=== PATIENT | male | born 1945 | race African-American/Black ===

== ENCOUNTER 2017-03-01 19:26 | Emergency (ER) | payer MEDICARE, OTHER ==
[~2017-03-01] VITALS: Ht 172.7 cm; Wt 82.0 kg
[~2017-03-01 19:26] MED LIST: ASPI-130 PO; FLEX10TA PO; GLUCTAB OR; NAPR550 PO; NOVOLOGP2 SQ; SIMV20TA PO; Z.0.UNKNOWN
[2017-03-01 19:27] VITALS: BP 191/92; PULSE 68; RESP 16; TEMP 99; O2SAT 98
--- NOTE | 2017-03-01 19:52 | PD ---
HPI Chief Complaint: Diabetic Time Seen by Provider: 19:40 Travel History International Travel<30 days: No Contact w/Intl Traveler<30days: No Traveled to known affect area: No History of Present Illness HPI 71-year-old male presents for evaluation of hyperglycemia. The patient has a history of type 2 diabetes. He is on metformin 1000 mg BID. Recently he was referred to an crop research scientist Dr. Mason and his insulin regimen was discontinued and he was placed on tanzeum in addition to his metformin. This was approximately 2 months ago. He noticed that his blood sugar tended to run in the mid 100s, higher than when he was on insulin, and in addition the tanzeum was expensive and he felt that he could no longer afford it and so he quit using it one month ago. Since then he has had gradually worsening blood sugar readings. Today's blood sugar was over 400 and this is what prompted evaluation. He does endorse some polyuria, polydipsia. Denies blurred vision, headache, chest pain, shortness of breath, nausea, vomiting, recent illness, fevers, chills. PFSH Past Medical History High Cholesterol: Yes Diabetes: Yes Patient Takes Glucophage: Yes Hypertension: Yes Immunizations Current: Yes Tetanus Vaccination: Never Vaccinated Influenza Vaccination: No Past Surgical History Cholecystectomy: Yes Social History Alcohol Use: No Tobacco Use: No Substance Use: No Allergies-Medications (Allergen,Severity, Reaction): Coded Allergies: acetaminophen (Verified Allergy, Severe, Flushing, 03/01/17) Reported Meds & Prescriptions Reported Meds & Active Scripts Active Review of Systems Except as stated in HPI: all other systems reviewed are Neg Physical Exam Narrative GENERAL: Pleasant well-developed well-nourished male in no acute distress SKIN: Warm and dry. HEAD: Atraumatic. Normocephalic. EYES: Pupils equal and round. No scleral icterus. No injection or drainage. ENT: No nasal bleeding or discharge. Mucous membranes pink and moist. NECK: Trachea midline. No JVD. CARDIOVASCULAR: Regular rate and rhythm. No murmur appreciated. RESPIRATORY: No accessory muscle use. Clear to auscultation. Breath sounds equal bilaterally. GASTROINTESTINAL: Abdomen soft, non-tender, nondistended. Hepatic and splenic margins not palpable. MUSCULOSKELETAL: No obvious deformities. No clubbing. No cyanosis. No edema. NEUROLOGICAL: Awake and alert. No obvious cranial nerve deficits. Motor grossly within normal limits. Normal speech. PSYCHIATRIC: Appropriate mood and affect; insight and judgment normal. Data Data Last Documented VS Vital Signs Date Time Temp Pulse Resp B/P (MAP) Pulse Ox O2 Delivery O2 Flow Rate FiO2 03/01/17 20:28 64 16 170/96 (120) 97 Room Air 03/01/17 19:27 99.0 Orders Orders Complete Blood Count With Diff (03/01/17 19:57) Basic Metabolic Panel (Bmp) (03/01/17 19:57) Sodium Chlor 0.9% 1000 Ml Inj (Ns 1000 M (03/01/17 19:57) Blood Glucose (03/01/17 19:57) Insulin Human Regular Inj (Novolin R Inj (03/01/17 21:30) Clonidine (Catapres) (03/01/17 22:00) Ed Discharge Order (03/01/17 21:58) Labs Laboratory Tests Test 03/01/17 20:30 White Blood Count 6.6 TH/MM3 Red Blood Count 4.70 MIL/MM3 Hemoglobin 13.5 GM/DL Hematocrit 42.3 % Mean Corpuscular Volume 90.1 FL Mean Corpuscular Hemoglobin 28.6 PG Mean Corpuscular Hemoglobin Concent 31.8 % Red Cell Distribution Width 13.5 % Platelet Count 234 TH/MM3 Mean Platelet Volume 9.1 FL Neutrophils (%) (Auto) 52.2 % Lymphocytes (%) (Auto) 35.3 % Monocytes (%) (Auto) 7.7 % Eosinophils (%) (Auto) 4.0 % Basophils (%) (Auto) 0.8 % Neutrophils # (Auto) 3.5 TH/MM3 Lymphocytes # (Auto) 2.3 TH/MM3 Monocytes # (Auto) 0.5 TH/MM3 Eosinophils # (Auto) 0.3 TH/MM3 Basophils # (Auto) 0.1 TH/MM3 CBC Comment DIFF FINAL Differential Comment Blood Urea Nitrogen 16 MG/DL Creatinine 1.08 MG/DL Random Glucose 371 MG/DL Calcium Level 9.4 MG/DL Sodium Level 135 MEQ/L Potassium Level 4.4 MEQ/L Chloride Level 99 MEQ/L Carbon Dioxide Level 29.2 MEQ/L Anion Gap 7 MEQ/L Estimat Glomerular Filtration Rate 82 ML/MIN [facility] Medical Decision Making Medical Screen Exam Complete: Yes Emergency Medical Condition: Yes Medical Record Reviewed: Yes Differential Diagnosis Hyperglycemia, type 2 diabetes, DKA, electrolyte abnormality Narrative Course The patient appears well. He appears to have hyperglycemia in the setting of history of type 2 diabetes, recent medication noncompliance secondary to cost issues. Plan is for basic lab work, urinalysis. Blood glucose will be obtained. He will be given IV fluids. The patient's laboratories reassuring. He was given an 8 unit insulin bolus. His blood sugar probably improved to 232. His blood pressure has been elevated during his hospital stay, most recent blood pressure reading was 205 systolic. He is prescribed a antihypertensive medication which he uses twice a day, and fortunately does not recall the name, and he is due for his evening dose. The patient will be given a dose of clonidine prior to discharge. He is encouraged to keep a daily journal of his blood pressure readings and to discuss with his primary care if the blood pressure readings are consistently elevated. Diagnosis Primary Impression: Hyperglycemia Additional Instructions: Follow-up with Dr. Mason tomorrow as scheduled to discuss your glycemic goals. As discussed, monitor blood pressure and a regular basis and keep a journal of these readings. Follow-up with primary care. Return for any emergent medical conditions. Med/Other Pt SpecificInfo: No Change to Meds Disposition: 01 DISCHARGE HOME Condition: Stable Tony Milian Mar 01, 2017 19:52
[2017-03-01] MEDS ORDERED: SODIUM CHLOR 0.9% 1000 ML INJ 1,000 ML IV SCH ×2 (19:57)
[2017-03-01 20:28] VITALS: BP 170/96; PULSE 64; RESP 16; O2SAT 97
[2017-03-01] MEDS ORDERED: SIMV20TA PO ×2 (20:34)
[2017-03-01] MEDS ORDERED: ASPI81CH7 PO ×2 (20:34)
[2017-03-01] MEDS ORDERED: LISI10TA3 PO ×2 (20:34)
[2017-03-01] MEDS ORDERED: METF1000 PO ×2 (20:34)
[2017-03-01 20:56] LABS: AUTOMATED NEUTROPHIL # 3.5 TH/MM3 (1.8-7.7); BASOPHIL # 0.1 TH/MM3 (0-0.2); BASOPHIL % 0.8 % (0.0-2.0); EOSINOPHIL # 0.3 TH/MM3 (0-0.4); HEMATOCRIT 42.3 % (39.0-51.0); HEMOGLOBIN 13.5 GM/DL (13.0-17.0); LYMPH % 35.3 % (9.0-44.0); LYMPHOCYTE # 2.3 TH/MM3 (1.0-4.8); MEAN CELL VOLUME 90.1 FL (80.0-100.0); MEAN CORPUSCULAR HEMOGLOBIN 28.6 PG (27.0-34.0); MEAN CORPUSCULAR HGB CONC 31.8 % (32.0-36.0); MEAN PLATELET VOLUME 9.1 FL (7.0-11.0); MONO % 7.7 % (0.0-8.0); MONOCYTE # 0.5 TH/MM3 (0-0.9); NEUT % 52.2 % (16.0-70.0); PLATELET COUNT 234 TH/MM3 (150-450); RED CELL DISTRIBUTION WIDTH 13.5 % (11.6-17.2); WHITE BLOOD COUNT 6.6 TH/MM3 (4.0-11.0)
[2017-03-01 21:12] LABS: BICARBONATE 29.2 MEQ/L (21.0-32.0); CALCIUM 9.4 MG/DL (8.5-10.1); CREATININE 1.08 MG/DL (0.60-1.30)
[2017-03-01] MEDS ORDERED: INSULIN HUMAN REGULAR 1,000 UNITS/10 ML VIAL IV PUSH ONE ×2 (21:30)
[2017-03-01 22:00] VITALS: BP 203/105; PULSE 65; RESP 16; O2SAT 98
[2017-03-01] MEDS ORDERED: cloNIDine HCL 0.2 MG TAB PO ONE ×2 (22:00)
[2017-03-01 22:39] VITALS: BP 180/100
== END 2017-03-01 22:41 | disposition home or self-care (01) ==
LOC: NEPC 19:26
DX: E11.65 Type 2 diabetes mellitus with hyperglycemia (principal); T38.3X6A Underdosing of insulin and oral hypoglycemic [antidiabetic] drugs, initial encounter; Z91.120 Patient's intentional underdosing of medication regimen due to financial hardship
CPT/HCPCS: 80048; 85025; 96361; 96374; 99284; J1815; J7030

== ENCOUNTER 2017-04-12 16:18 | Inpatient (IN) | payer MEDICARE ==
[~2017-04-12] VITALS: Ht 172.7 cm; Wt 81.0 kg
[2017-04-12] VITALS (7 sets, daily range): BP systolic 123–200; BP diastolic 62–98; PULSE 57–78; RESP 16–25; TEMP 98.3–99; O2SAT 95–99
[~2017-04-12 16:18] MED LIST changes: -ASPI-130 PO; +ASPI81CH7 PO; -FLEX10TA PO; -GLUCTAB OR; +LISI10TA3 PO; +METF1000 PO; -NAPR550 PO; -NOVOLOGP2 SQ; -Z.0.UNKNOWN
[2017-04-12] MEDS ORDERED: SODIUM CHLORIDE 0.9% FLUSH 10 ML FLUSH IVF PRN (16:45)
--- NOTE | 2017-04-12 16:49 | PD ---
HPI Chief Complaint: Chest Pain Time Seen by Provider: 16:42 Travel History International Travel<30 days: No Contact w/Intl Traveler<30days: No Traveled to known affect area: No History of Present Illness HPI 72-year-old male patient with history of high cholesterol, diabetes, presents to the ER today for 2 weeks' history of left-sided chest discomfort which she currently rates at 6 out of 10 with radiation down his left arm. He states that he had noticed that it does worsen sometimes with walking and laying on his side. He denies any nausea, shortness of breath, or any other symptoms. His primary care physician sent him in for further evaluation. Modifying Factors: None Associated Signs & Symptoms: Left-sided chest pain Risk Factors: Diabetes, high cholesterol PFSH Past Medical History High Cholesterol: Yes Diabetes: Yes Hypertension: Yes Immunizations Current: Yes ?: Not Past Surgical History Cholecystectomy: Yes Social History Alcohol Use: No Tobacco Use: No Substance Use: No Allergies-Medications (Allergen,Severity, Reaction): Coded Allergies: acetaminophen (Verified Allergy, Severe, Flushing, 03/01/17) Reported Meds & Prescriptions Reported Meds & Active Scripts Active Reported Lisinopril 10 Mg Tab 10 Mg PO DAILY Aspirin Children's (Aspirin) 81 Mg Chew 81 Mg PO DAILY Simvastatin 20 Mg Tab 20 Mg PO HS Metformin (Metformin HCl) 1,000 Mg Tab 1,000 Mg PO BIDPC Review of Systems Except as stated in HPI: all other systems reviewed are Neg Physical Exam Narrative GENERAL: Well-developed elderly -Cypriot male patient currently in mild distress. Awake and oriented 3. SKIN: Focused skin assessment warm/dry. HEAD: Atraumatic. Normocephalic. EYES: Pupils equal and round. No scleral icterus. No injection or drainage. ENT: No nasal bleeding or discharge. Mucous membranes pink and moist. NECK: Trachea midline. No JVD. CARDIOVASCULAR: Regular rate and rhythm. No murmur appreciated. Pulses are present and equal bilaterally. RESPIRATORY: No accessory muscle use. Clear to auscultation. Breath sounds equal bilaterally. GASTROINTESTINAL: Abdomen soft, non-tender, nondistended. Hepatic and splenic margins not palpable. MUSCULOSKELETAL: No obvious deformities. No clubbing. No cyanosis. No edema. NEUROLOGICAL: Awake and alert. No obvious cranial nerve deficits. Motor grossly within normal limits. Normal speech. PSYCHIATRIC: Appropriate mood and affect; insight and judgment normal. Data Data Last Documented VS Vital Signs Date Time Temp Pulse Resp B/P (MAP) Pulse Ox O2 Delivery O2 Flow Rate FiO2 04/12/17 18:08 61 201/111 04/12/17 17:11 98.7 25 99 Room Air Orders Orders Electrocardiogram (04/12/17 16:42) Ckmb (Isoenzyme) Profile (04/12/17 16:42) Complete Blood Count With Diff (04/12/17 16:42) Comprehensive Metabolic Panel (04/12/17 16:42) Magnesium (Mg) (04/12/17 16:42) Prothrombin Time / Inr (Pt) (04/12/17 16:42) Act Partial Throm Time (Ptt) (04/12/17 16:42) Troponin I (04/12/17 16:42) Chest, Single Ap (04/12/17 16:42) Ecg Monitoring (04/12/17 16:42) Bilateral Bp Monitoring (04/12/17 16:42) Iv Access Insert/Monitor (04/12/17 16:42) Oximetry (04/12/17 16:42) Oxygen Administration (04/12/17 16:42) Sodium Chloride 0.9% Flush (Ns Flush) (04/12/17 16:45) Aspirin (Aspirin) (04/12/17 17:30) Nitroglycerin 2% Oint (Nitroglycerin 2% (04/12/17 17:30) CKMB (04/12/17 17:10) CKMB% (04/12/17 17:10) Nitroglycerin-D5w 50 Mg/250 Ml (Nitrogly (04/12/17 18:00) Labetalol Inj (Trandate Inj) (04/12/17 18:45) Admit Order (Ed Use Only) (04/12/17 18:44) Labs Laboratory Tests Test 04/12/17 17:10 White Blood Count 6.6 TH/MM3 Red Blood Count 4.47 MIL/MM3 Hemoglobin 13.3 GM/DL Hematocrit 40.6 % Mean Corpuscular Volume 90.9 FL Mean Corpuscular Hemoglobin 29.7 PG Mean Corpuscular Hemoglobin Concent 32.7 % Red Cell Distribution Width 13.5 % Platelet Count 218 TH/MM3 Mean Platelet Volume 9.7 FL Neutrophils (%) (Auto) 53.5 % Lymphocytes (%) (Auto) 34.8 % Monocytes (%) (Auto) 6.7 % Eosinophils (%) (Auto) 4.0 % Basophils (%) (Auto) 1.0 % Neutrophils # (Auto) 3.6 TH/MM3 Lymphocytes # (Auto) 2.3 TH/MM3 Monocytes # (Auto) 0.4 TH/MM3 Eosinophils # (Auto) 0.3 TH/MM3 Basophils # (Auto) 0.1 TH/MM3 CBC Comment DIFF FINAL Differential Comment Prothrombin Time 11.0 SEC Prothromb Time International Ratio 1.1 RATIO Activated Partial Thromboplast Time 24.9 SEC Blood Urea Nitrogen 12 MG/DL Creatinine 1.00 MG/DL Random Glucose 143 MG/DL Total Protein 6.9 GM/DL Albumin 3.4 GM/DL Calcium Level 8.8 MG/DL Magnesium Level 1.6 MG/DL Alkaline Phosphatase 86 U/L Aspartate Amino Transf (AST/SGOT) 40 U/L Alanine Aminotransferase (ALT/SGPT) 57 U/L Total Bilirubin 1.6 MG/DL Sodium Level 139 MEQ/L Potassium Level 4.4 MEQ/L Chloride Level 103 MEQ/L Carbon Dioxide Level 32.3 MEQ/L Anion Gap 4 MEQ/L Estimat Glomerular Filtration Rate 89 ML/MIN Total Creatine Kinase 255 U/L Creatine Kinase MB 2.7 NG/ML Troponin I 0.06 NG/ML [facility] Medical Decision Making Medical Screen Exam Complete: Yes Emergency Medical Condition: Yes Medical Record Reviewed: Yes Interpretation(s) EKG shows NSR, no ST elevation or depression, and no arrhythmias. No significant T-wave inversions. Laboratory Tests Test 04/12/17 17:10 Red Blood Count 4.47 MIL/MM3 (4.50-5.90) Random Glucose 143 MG/DL (74-106) Aspartate Amino Transf (AST/SGOT) 40 U/L (15-37) Total Bilirubin 1.6 MG/DL (0.2-1.0) Carbon Dioxide Level 32.3 MEQ/L (21.0-32.0) Anion Gap 4 MEQ/L (5-15) Troponin I 0.06 NG/ML (0.02-0.05) Last 24 hours Impressions Chest X-Ray 04/12/17 1642 Signed Impressions: Service Date/Time: April 16:53 - CONCLUSION: No acute cardiopulmonary abnormality is identified. Jim Miramontes MD Differential Diagnosis Left-sided chest pains: ACS versus costochondritis versus radiculopathy Narrative Course Patient's blood pressure was fairly elevated initially and aspirin nitroglycerin paste was given. It did not come down with that and nitro drip was also initiated especially considering the chest pain. He has no signs of acute ST-T changes. However, his troponin is mildly elevated 0.06. At this point, my plan would be to admit the patient for further evaluation. Chest x- ray did not show any signs of acute pulmonary processes. He otherwise appears comfortable in the ER. Pulses are present and equal bilaterally. At this point , case was discussed with Dr. Earl of intensive care unit and he states that he does not feel that the patient needs to come to the ICU, can be admitted to medical floors, [facility]IC for further treatment. He would add labetalol to the regimen in order to improve the blood pressure as well. Case was then discussed with Dr. Webster for admission. Diagnosis Primary Impression: Chest pain Additional Impression: Hypertensive urgency Admitting Information Admitting Physician Requests: Admit Tracee Cole MD Apr 12, 2017 16:49
--- NOTE | 2017-04-12 17:07 | RADRPT ---
EXAM DATE/TIME: 04/12/2017 16:53 [place] COMPARISON: No previous studies available for comparison. INDICATIONS : Chest pain and tenderness all around chest, denies injury MEDICAL HISTORY : Hypertension. SURGICAL HISTORY : None. ENCOUNTER: Initial ACUITY: 4 - 6 days PAIN SCORE: 2/10 LOCATION: Bilateral chest FINDINGS: Portable AP view of the chest demonstrates a normal-sized cardiac silhouette. No effusion, consolidat ion, or pneumothorax is visualized. The bones and soft tissues demonstrate no acute abnormality. CONCLUSION: No acute cardiopulmonary abnormality is identified. Jim Miramontes MD on April 12, 2017 at 17:05 Board Certified Radiologist. This report was verified electronically.
[2017-04-12] MEDS ORDERED: ASPIRIN 325 MG TAB PO ONE (17:30)
[2017-04-12] MEDS ORDERED: NITROGLYCERIN 2% OINT 1 GM PACKET TOPICAL ONE (17:30)
[2017-04-12 17:42] LABS: AUTOMATED NEUTROPHIL # 3.6 TH/MM3 (1.8-7.7); BASOPHIL # 0.1 TH/MM3 (0-0.2); EOSINOPHIL # 0.3 TH/MM3 (0-0.4); HEMATOCRIT 40.6 % (39.0-51.0); HEMO FLAGS DIFF FINAL; LYMPH % 34.8 % (9.0-44.0); LYMPHOCYTE # 2.3 TH/MM3 (1.0-4.8); MEAN CELL VOLUME 90.9 FL (80.0-100.0); MEAN CORPUSCULAR HEMOGLOBIN 29.7 PG (27.0-34.0); MEAN CORPUSCULAR HGB CONC 32.7 % (32.0-36.0); MONO % 6.7 % (0.0-8.0); NEUT % 53.5 % (16.0-70.0); PLATELET COUNT 218 TH/MM3 (150-450); RED BLOOD COUNT 4.47 MIL/MM3 (4.50-5.90); RED CELL DISTRIBUTION WIDTH 13.5 % (11.6-17.2); WHITE BLOOD COUNT 6.6 TH/MM3 (4.0-11.0)
[2017-04-12 17:53] LABS: ALT (GPT) 57 U/L (12-78); ANION GAP 4 MEQ/L (5-15); AST (GOT) 40 U/L (15-37); BICARBONATE 32.3 MEQ/L (21.0-32.0); BLOOD UREA NITROGEN 12 MG/DL (7-18); CHLORIDE 103 MEQ/L (98-107); GLOMERULAR FILTRATION RATE 89 ML/MIN (>89); MAGNESIUM 1.6 MG/DL (1.5-2.5); POTASSIUM 4.4 MEQ/L (3.5-5.1); SODIUM (NA) 139 MEQ/L (136-145)
[2017-04-12 17:57] LABS: ALKALINE PHOSPHATASE 86 U/L (45-117); CREATINE KINASE 255 U/L (39-308); TOTAL BILIRUBIN ADULT 1.6 MG/DL (0.2-1.0)
[2017-04-12] MEDS ORDERED: NITROGLYCERIN-D5W 50 MG/250 ML 250 ML IV PRN (18:00)
[2017-04-12 18:05] LABS: APTT (PATIENT) 24.9 SEC (24.3-30.1); INTERNATIONAL NORMALIZED RATIO 1.1 RATIO
[2017-04-12 18:09] LABS: CKMB 2.7 NG/ML (0.5-3.6)
[2017-04-12] MEDS ORDERED: LABETALOL HCL 100 MG/20 ML VIAL IV PUSH ONE (18:45)
[2017-04-12] MEDS ORDERED: NALOXONE HCL 0.4 MG/ML AMP IV PUSH PRN (20:30)
[2017-04-12] MEDS ORDERED: MAGNESIUM HYDROXIDE SUSP 30 ML CUP PO PRN (20:30)
[2017-04-12] MEDS ORDERED: SODIUM CHLORIDE 0.9% FLUSH 10 ML FLUSH IV FLUSH PRN (20:30)
[2017-04-12] MEDS ORDERED: LACTULOSE SYRUP 20 GM/30 ML CUP PO PRN (20:30)
[2017-04-12] MEDS ORDERED: BISACODYL 10 MG SUPP RECTAL PRN (20:30)
[2017-04-12] MEDS ORDERED: LABETALOL HCL 100 MG/20 ML VIAL IV PUSH PRN (20:30)
[2017-04-12] MEDS ORDERED: SENNOSIDES 8.6 MG TAB PO PRN (20:30)
[2017-04-12] MEDS ORDERED: DEXTROSE 50% IN WATER 50 ML VIAL(D50) IV PUSH PRN (20:45)
[2017-04-12] MEDS ORDERED: GLUCAGON 1 MG/ML VIAL OTHER PRN (20:45)
--- NOTE | 2017-04-12 20:51 | HHI.HP ---
HPI Service [facility] Primary Care Physician Weston León MD, PhD Admission Diagnosis hypertensive urgency/chest pain/mildly elevated troponin Chief Complaint: chest pain last 2 weeks Travel History International Travel<30 Days: No Contact w/Intl Traveler <30 Da: No Traveled to Known Affected Are: No History of Present Illness 72-year-old male patient with history of high cholesterol, diabetes, presents to the ER today for 2 weeks' history of left-sided chest discomfort which she currently rates at 6 out of 10 with radiation down his left arm. He states that he had noticed that it does worsen sometimes with walking and laying on his side. He denies any nausea, shortness of breath, or any other symptoms. In er started on ntg with improvement in pain but had positive troponin and had significant increase in blood pressure. Patient started on NTG drip and given labetatol with improvement admit to rule out cardiac chest pain and consult cardiology follow labs. Review of Systems Cardiovascular: COMPLAINS OF: Chest pain Past Family Social History Past Medical History hypertension,hyperlipidemia,diabetes Past Surgical History gall bladder Reported Medications [id number] asa 81 simvastain 20 metformin 1000 bid Allergies: Coded Allergies: acetaminophen (Verified Allergy, Severe, Flushing, 03/01/17) Social History NS,ND Physical Exam Vital Signs Vital Signs Date Time Temp Pulse Resp B/P (MAP) Pulse Ox O2 Delivery O2 Flow Rate FiO2 04/12/17 20:28 78 16 142/77 (98) 98 Room Air 04/12/17 20:01 72 183/106 04/12/17 19:45 64 171/92 04/12/17 18:50 63 18 139/81 (100) 04/12/17 18:45 61 199/110 04/12/17 18:08 61 201/111 04/12/17 17:11 98.7 58 25 197/96 (129) 99 Room Air 200/98 (132) 04/12/17 17:10 99 Room Air 04/12/17 17:10 (121) Room Air 04/12/17 16:57 58 18 98 Room Air 04/12/17 16:23 99.0 57 16 182/91 (121) 99 Room Air Physical Exam GENERAL: This is a well-nourished, well-developed patient, in no apparent distress. SKIN: No rashes, ecchymoses or lesions. Cool and dry. HEAD: Atraumatic. Normocephalic. No temporal or scalp tenderness. EYES: Pupils equal round and reactive. Extraocular motions intact. No scleral icterus. No injection or drainage. ENT: Nose without bleeding, purulent drainage or septal hematoma. Throat without erythema, tonsillar hypertrophy or exudate. Uvula midline. Airway patent. NECK: Trachea midline. No JVD or lymphadenopathy. Supple, nontender, no meningeal signs. CARDIOVASCULAR: Regular rate and rhythm without murmurs, gallops, or rubs. RESPIRATORY: Clear to auscultation. Breath sounds equal bilaterally. No wheezes , rales, or rhonchi. GASTROINTESTINAL: Abdomen soft, non-tender, nondistended. No hepato-splenomegaly , or palpable masses. No guarding. MUSCULOSKELETAL: Extremities without clubbing, cyanosis, or edema. No joint tenderness, effusion, or edema noted. No calf tenderness. Negative Homans sign bilaterally. NEUROLOGICAL: Awake and alert. Cranial nerves II through XII intact. Motor and sensory grossly within normal limits. Five out of 5 muscle strength in all muscle groups. Normal speech. Laboratory Laboratory Tests Test 04/12/17 17:10 White Blood Count 6.6 Red Blood Count 4.47 Hemoglobin 13.3 Hematocrit 40.6 Mean Corpuscular Volume 90.9 Mean Corpuscular Hemoglobin 29.7 Mean Corpuscular Hemoglobin Concent 32.7 Red Cell Distribution Width 13.5 Platelet Count 218 Mean Platelet Volume 9.7 Neutrophils (%) (Auto) 53.5 Lymphocytes (%) (Auto) 34.8 Monocytes (%) (Auto) 6.7 Eosinophils (%) (Auto) 4.0 Basophils (%) (Auto) 1.0 Neutrophils # (Auto) 3.6 Lymphocytes # (Auto) 2.3 Monocytes # (Auto) 0.4 Eosinophils # (Auto) 0.3 Basophils # (Auto) 0.1 CBC Comment DIFF FINAL Differential Comment Prothrombin Time 11.0 Prothromb Time International Ratio 1.1 Activated Partial Thromboplast Time 24.9 Blood Urea Nitrogen 12 Creatinine 1.00 Random Glucose 143 Total Protein 6.9 Albumin 3.4 Calcium Level 8.8 Magnesium Level 1.6 Alkaline Phosphatase 86 Aspartate Amino Transf (AST/SGOT) 40 Alanine Aminotransferase (ALT/SGPT) 57 Total Bilirubin 1.6 Sodium Level 139 Potassium Level 4.4 Chloride Level 103 Carbon Dioxide Level 32.3 Anion Gap 4 Estimat Glomerular Filtration Rate 89 Total Creatine Kinase 255 Creatine Kinase MB 2.7 Troponin I 0.06 Result Diagram: 04/12/17 1710 04/12/17 1710 Imaging Last 24 hours Impressions Chest X-Ray 04/12/17 1642 Signed Impressions: Service Date/Time: April 16:53 - CONCLUSION: No acute cardiopulmonary abnormality is identified. Jim Miramontes MD Course ekg-nsr non specific st t wave changes received labetolol ntg Caprini VTE Risk Assessment Caprini VTE Risk Assessment: Mod/High Risk (score >= 2) Caprini Risk Assessment Model Point Value = 1 Point Value = 2 Point Value = 3 Point Value = 5 Age 41-60 Minor surgery BMI > 25 kg/m2 Swollen legs Varicose veins or History of unexplained or recurrent spontaneous Oral contraceptives or hormone replacement Sepsis (< 1 month) Serious lung disease, including pneumonia (< 1 month) Abnormal pulmonary function Acute myocardial infarction Congestive heart failure (< 1 month) History of inflammatory bowel disease Medical patient at bed rest Age 61-74 Arthroscopic surgery Major open surgery (> 45 min) Laparoscopic surgery (> 45 min) Malignancy Confined to bed (> 72 hours) Immobilizing plaster cast Central venous access Age >= 75 History of VTE Family history of VTE Factor V Leiden Prothrombin [id number] Lupus anticoagulant Anticardiolipin antibodies Elevated serum homocysteine Heparin-induced thrombocytopenia Other congenital or acquired thrombophilia Stroke (< 1 month) Elective arthroplasty Hip, pelvis, or leg fracture Acute spinal cord injury (< 1 month) Prophylaxis Regimen Total Risk Factor Score Risk Level Prophylaxis Regimen 0-1 Low Early ambulation 2 Moderate Order ONE of the following: *Sequential Compression Device (SCD) *Heparin 5000 units SQ BID 3-4 Higher Order ONE of the following medications: *Heparin 5000 units SQ TID *Enoxaparin/Lovenox 40 mg SQ daily (WT < 150 kg, CrCl > 30 mL/min) *Enoxaparin/Lovenox 30 mg SQ daily (WT < 150 kg, CrCl > 10-29 mL/min) *Enoxaparin/Lovenox 30 mg SQ BID (WT < 150 kg, CrCl > 30 mL/min) AND/OR *Sequential Compression Device (SCD) 5 or more Highest Order ONE of the following medications: *Heparin 5000 units SQ TID (Preferred with Epidurals) *Enoxaparin/Lovenox 40 mg SQ daily (WT < 150 kg, CrCl > 30 mL/min) *Enoxaparin/Lovenox 30 mg SQ daily (WT < 150 kg, CrCl > 10-29 mL/min) *Enoxaparin/Lovenox 30 mg SQ BID (WT < 150 kg, CrCl > 30 mL/min) AND *Sequential Compression Device (SCD) Assessment and Plan Problem List: (1) Hypertensive urgency ICD Codes: I16.0 - Hypertensive urgency Status: Acute Plan: patient was started on NTG drip and given labetolol with improvement will continue for now (2) Chest pain ICD Codes: R07.9 - Chest pain, unspecified Status: Acute Plan: chest pain about 2 weeks duration pain free now with ntg drip continue asa and add lovenox for now follow enzymes cardiac consult (3) Diabetes ICD Codes: E11.9 - Type 2 diabetes mellitus without complications Plan: continue metformin sliding scale Assessment and Plan further plan as case develops Code Status full Discussed Condition With patient Physician Certification 2 Midnight Certification Type: Admission for Inpatient Services Order for Inpatient Services The services are ordered in accordance with Medicare regulations or non- Medicare payer requirements, as applicable. In the case of services not specified as inpatient-only, they are appropriately provided as inpatient services in accordance with the 2-midnight benchmark. Estimated LOS (days): 3 3 days is the estimated time the patient will need to remain in the hospital, assuming treatment plan goals are met and no additional complications. Post-Hospital Plan: Home Austin Norton MD Apr 12, 2017 20:51
[2017-04-12] MEDS: ENOXAPARIN SODIUM 40 MG/0.4 ML SYRINGE SQ SCH (20:58)
[2017-04-12] MEDS: DOCUSATE SODIUM 50 MG/SENNA 8.6 MG TAB PO SCH (21:00)
[2017-04-12] MEDS: SODIUM CHLORIDE 0.9% FLUSH 10 ML FLUSH IV FLUSH SCH (21:00)
[2017-04-12] MEDS: INSULIN ASPART SUPPLEMENTAL SCALE SQ SCH (21:00)
--- NOTE | 2017-04-12 21:21 | EKG ---
Date Performed: 04/12/2017 Time Performed: 17:03:54 PTAGE: 72 years EKG: Baseline artifact present SINUS BRADYCARDIA WITH SINUS ARRHYTHMIA NONSPECIFIC T-WAVE ABNORM ALITY BORDERLINE ECG No significant change from prior electrocardiogram. PREVIOUS TRACING : 11/27/2008 23.37 DOCTOR: Young Thompson Interpretating Date/Time 04/12/2017 21:20:42
[2017-04-12] MEDS: PRAVASTATIN SOD 40 MG TAB PO SCH (21:49)
[2017-04-13] VITALS (24 sets, daily range): BP systolic 143–174; BP diastolic 70–97; PULSE 58–80; RESP 18–20; TEMP 98–98.7; O2SAT 96–98
[2017-04-13] MEDS: INSULIN ASPART SUPPLEMENTAL SCALE SQ SCH ×4 (08:00→20:56)
--- NOTE | 2017-04-13 08:20 | MB ---
cc: LORI HARRISON DATE OF CONSULTATION 04/13/2017 HISTORY This is a 72-year-old gentleman who was admitted to the hospital for chest discomfort. His chest discomfort actually began about two to three weeks ago. This has been more or less persistent throughout that time. He also has significant radiation into his left arm and they eventually decided to come to the hospital for evaluation. No exertional component is present to the test. He does note that his left arm pain is worsened by lying on his left side and/or if he moves his arm. No associated dyspnea, diaphoresis or nausea was present. No prior history of chest pain or heart disease has been present. His risk factors for coronary disease include a history of hypertension, diabetes and hyperlipidemia. He noted that his blood pressure was quite high when he came to the emergency department with a systolic of 200 mmHg. He has been given IV nitroglycerin for blood pressure control and systolic blood pressure is now 150. He is a never smoker. No significant family history of coronary disease as present. ALLERGIES None except that he has an ADVERSE REACTION TO TYLENOL. MEDICATIONS Medications at home have included: 1. Lisinopril 10 mg daily 2. 81 mg of Aspirin daily 3. Simvastatin 20 mg daily 4. Metformin 1000 mg twice daily PHYSICAL EXAM On physical exam, he is in awake and alert. He is in no acute distress. VITAL SIGNS: His blood pressure is 147/75, pulse is 60 and regular. NECK: There is no neck vein distension. Carotids are normal. LUNGS: Clear. CARDIOVASCULAR: Exam reveals a regular rate and rhythm. No significant murmur or gallop was noted. There is no particular point tenderness. SKIN: No skin lesions were seen. ABDOMEN: Unremarkable. Electrocardiogram done with chest pain reveals no acute ST or T-wave changes. LABORATORY DATA Laboratory examination is significant for a slightly elevated troponin at 0.06. His renal function is within normal limits. The remainder of his lab examination is unremarkable. ASSESSMENT/PLAN The patient has chest discomfort which is unlikely to be coronary disease based on its presentation of two weeks without significant change. We will do a Lexiscan in view of his multiple risk factors to rule out occult coronary artery disease. I have taken the liberty of adding amlodipine to his regimen for better blood pressure control. MD PAMELA Sigala/REGAN /8:04 AM /8:11 AM
[2017-04-13] MEDS: metFORMIN HCL 500 MG TAB PO SCH ×2 (09:00→18:00)
[2017-04-13] MEDS ORDERED: LISINOPRIL 10 MG TAB PO SCH (09:00)
[2017-04-13] MEDS: SODIUM CHLORIDE 0.9% FLUSH 10 ML FLUSH IV FLUSH SCH ×2 (09:00→20:53)
[2017-04-13] MEDS ORDERED: ASPIRIN 81 MG CHEW TAB PO SCH (09:00)
--- NOTE | 2017-04-13 09:32 | EKG ---
Date Performed: 04/13/2017 Time Performed: 08:18:50 PTAGE: 72 years EKG: SINUS BRADYCARDIA WITH SINUS ARRHYTHMIA NONSPECIFIC T-WAVE ABNORMALITY BORDERLINE ECG No si gnificant change from prior electrocardiogram. PREVIOUS TRACING : 04/12/2017 17.03 DOCTOR: Young Thompson Interpretating Date/Time 04/13/2017 09:32:25
--- NOTE | 2017-04-13 10:13 | HHI.PR ---
Subjective Remarks Patient reports that his chest pain has resolved continues to have some, "stiffness," in his left arm worse with turning head from side to side. Objective Vitals Vital Signs Date Time Temp Pulse Resp B/P (MAP) Pulse Ox O2 Delivery O2 Flow Rate FiO2 04/13/17 07:50 59 04/13/17 07:50 98.7 59 18 151/86 (107) 98 04/13/17 06:00 62 04/13/17 05:52 57 147/75 04/13/17 05:00 69 04/13/17 04:00 60 04/13/17 03:25 64 143/75 04/13/17 03:13 98.5 64 18 143/75 (97) 96 04/13/17 03:00 65 04/13/17 02:00 68 04/13/17 01:00 64 04/13/17 00:00 68 04/12/17 23:53 67 123/62 04/12/17 23:52 98.3 68 18 123/62 (82) 95 04/12/17 23:00 70 04/12/17 21:37 98.3 68 18 129/72 (91) 96 04/12/17 20:56 04/12/17 20:28 78 16 142/77 (98) 98 Room Air 04/12/17 20:01 72 183/106 04/12/17 19:45 64 171/92 04/12/17 18:50 63 18 139/81 (100) 04/12/17 18:45 61 199/110 04/12/17 18:08 61 201/111 04/12/17 17:11 98.7 58 25 197/96 (129) 99 Room Air 200/98 (132) 04/12/17 17:10 99 Room Air 04/12/17 17:10 (121) Room Air 04/12/17 16:57 58 18 98 Room Air 04/12/17 16:23 99.0 57 16 182/91 (121) 99 Room Air Result Diagram: 04/12/17 1710 04/12/17 1710 Other Results Laboratory Tests Test 04/12/17 17:10 04/12/17 22:40 04/13/17 06:14 White Blood Count 6.6 TH/MM3 Red Blood Count 4.47 MIL/MM3 Hemoglobin 13.3 GM/DL Hematocrit 40.6 % Mean Corpuscular Volume 90.9 FL Mean Corpuscular Hemoglobin 29.7 PG Mean Corpuscular Hemoglobin Concent 32.7 % Red Cell Distribution Width 13.5 % Platelet Count 218 TH/MM3 Mean Platelet Volume 9.7 FL Neutrophils (%) (Auto) 53.5 % Lymphocytes (%) (Auto) 34.8 % Monocytes (%) (Auto) 6.7 % Eosinophils (%) (Auto) 4.0 % Basophils (%) (Auto) 1.0 % Neutrophils # (Auto) 3.6 TH/MM3 Lymphocytes # (Auto) 2.3 TH/MM3 Monocytes # (Auto) 0.4 TH/MM3 Eosinophils # (Auto) 0.3 TH/MM3 Basophils # (Auto) 0.1 TH/MM3 CBC Comment DIFF FINAL Differential Comment Prothrombin Time 11.0 SEC Prothromb Time International Ratio 1.1 RATIO Activated Partial Thromboplast Time 24.9 SEC Blood Urea Nitrogen 12 MG/DL Creatinine 1.00 MG/DL Random Glucose 143 MG/DL Total Protein 6.9 GM/DL Albumin 3.4 GM/DL Calcium Level 8.8 MG/DL Magnesium Level 1.6 MG/DL Alkaline Phosphatase 86 U/L Aspartate Amino Transf (AST/SGOT) 40 U/L Alanine Aminotransferase (ALT/SGPT) 57 U/L Total Bilirubin 1.6 MG/DL Sodium Level 139 MEQ/L Potassium Level 4.4 MEQ/L Chloride Level 103 MEQ/L Carbon Dioxide Level 32.3 MEQ/L Anion Gap 4 MEQ/L Estimat Glomerular Filtration Rate 89 ML/MIN Total Creatine Kinase 255 U/L Creatine Kinase MB 2.7 NG/ML Troponin I 0.06 NG/ML 0.05 NG/ML 0.05 NG/ML Imaging Last 24 hours Impressions Chest X-Ray 04/12/17 1642 Signed Impressions: Service Date/Time: April 16:53 - CONCLUSION: No acute cardiopulmonary abnormality is identified. Jim Miramontes MD Objective Remarks GENERAL: This is a well-nourished, well-developed patient, in no apparent distress. CARDIOVASCULAR: Regular rate and rhythm RESPIRATORY: Clear to auscultation. Breath sounds equal bilaterally. GASTROINTESTINAL: Abdomen soft, non-tender, nondistended. No guarding. MUSCULOSKELETAL: Extremities without clubbing, cyanosis, or edema. No joint tenderness, effusion, or edema noted. No calf tenderness. Negative Homans sign bilaterally. NEUROLOGICAL: Awake and alert. No focal deficits noted. Motor and sensory grossly within normal limits. Five out of 5 muscle strength in all muscle groups. Normal speech. Procedures none A/P Problem List: (1) Hypertensive urgency ICD Codes: I16.0 - Hypertensive urgency Status: Acute Plan: patient was started on NTG drip and given labetalol with improvement will continue for now cardiology has added norvasc increase lisinopril to 20 mg BID wean off NTG PRN clonidine continue to monitor BP (2) Chest pain ICD Codes: R07.9 - Chest pain, unspecified Status: Acute Plan: chest pain about 2 weeks duration pain free now with ntg drip continue asa and add Lovenox for now follow enzymes cardiac consult cardiac enzymes pattern flat appreciate cardiology input [place] reviewed unremarkable myocardial perfusion scan (3) Diabetes ICD Codes: E11.9 - Type 2 diabetes mellitus without complications Plan: continue metformin sliding scale (4) Neck pain ICD Codes: M54.2 - Cervicalgia Plan: Patient continues to c/o left arm stiffness worse with turning his head. Patient reports that this discomfort was much worse when he initially came in and seems to be improving. Xray C spine ordered k Therma pad as needed Griselda Fernandez Apr 13, 2017 10:13
[2017-04-13] MEDS ORDERED: REGADENOSON INJ 0.4 MG/5 ML SYR ONE (10:46)
--- NOTE | 2017-04-13 12:12 | RADRPT ---
EXAM DATE/TIME: 04/13/2017 10:08 [facility] COMPARISON: No previous studies available for comparison. INDICATIONS : Chest pain and dyspnea x 2 weeks. Angina. DOSE: 26.3 mCi Tc99m Myoview at stress. 8.6 mCi Tc99m Myoview at rest. 0.4 mg Lexiscan STRESS SYMPTOMS: Dyspnea and stomach pain. EJECTION FRACTION: 56% MEDICAL HISTORY : Diabetes mellitus type 2. Hypertension. SURGICAL HISTORY : Cholecystectomy. ENCOUNTER: Initial ACUITY: 1 day PAIN SCALE: 0/10 LOCATION: Left chest TECHNIQUE: The patient underwent pharmacologic stress with infusion of prescribed dose. Continuous ECG tracing was monitored during stress. Gated SPECT imaging was performed after stress and conventional SPECT i maging was performed at rest. The examination was performed on a SPECT/CT scanner, both attenuation and non-corrected datasets were reviewed. FINDINGS: DISTRIBUTION: The maximum perfused segment at stress is in the anterolateral wall. PERFUSION STUDY: The pattern of perfusion at stress is within normal limits. GATED STUDY: There is intact wall motion and thickening without hypokinetic or dyskinetic segments. CONCLUSION: 1. Unremarkable myocardial perfusion scan. RISK CATEGORY: Low (<1% Annual Mortality Rate) Charli Salguero MD on April 13, 2017 at 12:10 Board Certified Radiologist. This report was verified electronically.
[2017-04-13] MEDS: ASPIRIN 325 MG TAB PO SCH (13:39)
[2017-04-13] MEDS: DOCUSATE SODIUM 50 MG/SENNA 8.6 MG TAB PO SCH ×2 (13:40→20:56)
[2017-04-13] MEDS: amLODIPine BESYLATE 5 MG TAB PO SCH (13:40)
[2017-04-13] MEDS ORDERED: LISINOPRIL 20 MG TAB PO ONE (14:15)
[2017-04-13] MEDS ORDERED: cloNIDine HCL 0.1 MG TAB PO PRN (20:30)
[2017-04-13] MEDS: ENOXAPARIN SODIUM 40 MG/0.4 ML SYRINGE SQ SCH (20:52)
[2017-04-13] MEDS: PRAVASTATIN SOD 40 MG TAB PO SCH (20:52)
[2017-04-13] MEDS: LISINOPRIL 20 MG TAB PO SCH (20:53)
--- NOTE | 2017-04-13 22:03 | RADRPT ---
EXAM DATE/TIME: 04/13/2017 21:02 [facility] COMPARISON: No previous studies available for comparison. INDICATIONS : Pain extending down left arm, chest, and back. MEDICAL HISTORY : None. SURGICAL HISTORY : None. ENCOUNTER: Initial ACUITY: 1 day PAIN SCORE: 5/10 LOCATION: Neck. FINDINGS: Cervical spondylosis is noted throughout the entire cervical spine. There is no acute fracture or pre vertebral soft tissue swelling. The bony relationship and alignment between C1 and C2 is well [place]. CONCLUSION: 1. Diffuse cervical spondylosis. 2. No acute fracture or prevertebral soft tissue swelling. Mulugeta Sanderson MD on April 13, 2017 at 22:01 Board Certified Radiologist. This report was verified electronically.
[2017-04-14] VITALS (25 sets, daily range): BP systolic 137–170; BP diastolic 70–92; PULSE 61–78; RESP 18–20; TEMP 98.2–98.5; O2SAT 96–98
[2017-04-14] MEDS: INSULIN ASPART SUPPLEMENTAL SCALE SQ SCH ×4 (07:52→21:00)
--- NOTE | 2017-04-14 09:31 | HHI.DS ---
Discharge Summary Admission Date Apr 12, 2017 at 18:45 Discharge Date: Apr 15, 2017 Admitting Diagnosis hypertensive urgency/chest pain/mildly elevated troponin (1) Hypertensive urgency Diagnosis: Principal ICD Codes: I16.0 - Hypertensive urgency Status: Acute (2) Chest pain Diagnosis: Principal ICD Codes: R07.9 - Chest pain, unspecified Status: Acute (3) Diabetes Diagnosis: Secondary ICD Codes: E11.9 - Type 2 diabetes mellitus without complications (4) Neck pain Diagnosis: Secondary ICD Codes: M54.2 - Cervicalgia Consultants Dr. Charli Sanchez, Cardiology Procedures none Brief History 72-year-old male patient with history of high cholesterol, diabetes, presents to the ER today for 2 weeks' history of left-sided chest discomfort which she currently rates at 6 out of 10 with radiation down his left arm. He states that he had noticed that it does worsen sometimes with walking and laying on his side. He denies any nausea, shortness of breath, or any other symptoms. In er started on ntg with improvement in pain but had positive troponin and had significant increase in blood pressure. Patient started on NTG drip and given labetatol with improvement admit to rule out cardiac chest pain and consult cardiology follow labs. CBC/BMP: 04/12/17 1710 04/12/17 1710 Significant Findings Laboratory Tests Test 04/12/17 17:10 04/12/17 22:40 04/13/17 06:14 Red Blood Count 4.47 MIL/MM3 (4.50-5.90) Random Glucose 143 MG/DL (74-106) Aspartate Amino Transf (AST/SGOT) 40 U/L (15-37) Total Bilirubin 1.6 MG/DL (0.2-1.0) Carbon Dioxide Level 32.3 MEQ/L (21.0-32.0) Anion Gap 4 MEQ/L (5-15) Troponin I 0.06 NG/ML (0.02-0.05) Imaging Last Impressions Myocardial Perfusion Scan Nuc Med 04/13/17 0000 Signed Impressions: Service Date/Time: Thursday, April 13, 2017 10:08 - CONCLUSION: 1. Unremarkable myocardial perfusion scan. RISK CATEGORY: Low (<1%% Annual Mortality Rate) Charli Salguero MD Cervical Spine X-Ray 04/13/17 0000 Signed Impressions: Service Date/Time: Thursday, April 13, 2017 21:02 - CONCLUSION: 1. Diffuse cervical spondylosis. 2. No acute fracture or prevertebral soft tissue swelling. Mulugeta Sanderson MD Chest X-Ray 04/12/17 1642 Signed Impressions: Service Date/Time: April 16:53 - CONCLUSION: No acute cardiopulmonary abnormality is identified. Jim Miramontes MD PE at Discharge GENERAL: This is a well-nourished, well-developed patient, in no apparent distress. CARDIOVASCULAR: Regular rate and rhythm RESPIRATORY: Clear to auscultation. Breath sounds equal bilaterally. GASTROINTESTINAL: Abdomen soft, non-tender, nondistended. No guarding. MUSCULOSKELETAL: Extremities without clubbing, cyanosis, or edema. No joint tenderness, effusion, or edema noted. No calf tenderness. Negative Homans sign bilaterally. NEUROLOGICAL: Awake and alert. No focal deficits noted. Motor and sensory grossly within normal limits. Five out of 5 muscle strength in all muscle groups. Normal speech. Hospital Course (1) Hypertensive urgency ICD Codes: I16.0 - Hypertensive urgency Status: Acute Plan: patient was started on NTG drip and given labetalol with improvement will continue for now - cardiology has added norvasc - increase lisinopril to 20 mg BID - pt weaned off NTG - (04/14) BP still running high DC norvasc and start nifedipine 60 mg PO daily. - Pt to keep home BP log and f/u with PCP in 1 week - Pt may require further adjustment of BP medications outpt (2) Chest pain ICD Codes: R07.9 - Chest pain, unspecified Status: Acute Plan: chest pain about 2 weeks duration pain free now with ntg drip continue asa and add Lovenox for now follow enzymes cardiac consult cardiac enzymes pattern flat appreciate cardiology input [place] reviewed unremarkable myocardial perfusion scan (3) Diabetes ICD Codes: E11.9 - Type 2 diabetes mellitus without complications Plan: continue metformin sliding scale - resume outpt regimen upon discharge (4) Neck pain ICD Codes: M54.2 - Cervicalgia Plan: Patient continues to c/o left arm stiffness worse with turning his head. Patient reports that this discomfort was much worse when he initially came in and seems to be improving. - Cspine x-ray series --> diffuse spondylosis in cervical spine - cervical MRI (04/14) --> There is a diffuse broad-based bulging and focal central bulging at C6-7. there is broad- based bulging at C4-5 and C5-6. -results discussed with patient k Therma pad as needed Pt Condition on Discharge: Stable Discharge Disposition: Discharge Home Discharge Instructions DIET: Follow Instructions for: Heart Healthy Diet Activities you can perform: Regular-No Restrictions Follow up Referrals: PCP Follow-up - [address] Weston León New Medications: Lisinopril (Lisinopril) 20 Mg Tab 20 MG PO BID for htn, #60 TAB 0 Refills Nifedipine ER 24 HR (Nifedipine ER 24 HR) 60 Mg Tab 60 MG PO DAILY for blood pressure, #30 TAB 0 Refills Continued Medications: Aspirin (Aspirin Children's) 81 Mg Chew 81 MG PO DAILY, TAB 0 Refills Metformin (Metformin) 1,000 Mg Tab 1000 MG PO BIDPC for Blood Sugar Management, #60 TAB 0 Refills Simvastatin (Simvastatin) 20 Mg Tab 20 MG PO HS for Cholesterol Management, #30 TAB 0 Refills Discontinued Medications: Lisinopril (Lisinopril) 10 Mg Tab 10 MG PO DAILY, #30 TAB 0 Refills Alec Cotter DO Apr 14, 2017 09:31 Griselda Fernandez Apr 15, 2017 08:55
[2017-04-14] MEDS ORDERED: LISI-515 PO (09:36)
[2017-04-14] MEDS: DOCUSATE SODIUM 50 MG/SENNA 8.6 MG TAB PO SCH ×2 (09:39→20:58)
[2017-04-14] MEDS: metFORMIN HCL 500 MG TAB PO SCH ×2 (09:39→17:29)
[2017-04-14] MEDS: SODIUM CHLORIDE 0.9% FLUSH 10 ML FLUSH IV FLUSH SCH ×2 (09:39→20:59)
[2017-04-14] MEDS: amLODIPine BESYLATE 5 MG TAB PO SCH (09:39)
[2017-04-14] MEDS: ASPIRIN 325 MG TAB PO SCH (09:40)
[2017-04-14] MEDS: LISINOPRIL 20 MG TAB PO SCH ×2 (09:40→20:58)
[2017-04-14] MEDS ORDERED: diphenhydrAMINE HCL 25 MG CAP PO ONE (12:00)
--- NOTE | 2017-04-14 15:21 | RADRPT ---
EXAM DATE/TIME: 04/14/2017 14:12 [facility] COMPARISON: No previous studies available for comparison. INDICATIONS : Pain. MEDICAL HISTORY : Diabetes mellitus type 2. Hypercholesterolemia. SURGICAL HISTORY : Cholecystectomy. ENCOUNTER: Initial ACUITY: 1 day PAIN SCORE: 4/10 LOCATION: Paraspinal TECHNIQUE: Multiplanar, multisequence MRI examination of the cervical spine was performed. FINDINGS: VERTEBRAE: Normal vertebral body height. Homogeneous marrow signal. ALIGNMENT: No evidence of subluxation. CORD: Normal configuration and signal. POST FOSSA: The cerebellar tonsils are normal in position. C2-C3: The thecal sac has a normal configuration. There is no evidence of disc herniation or spinal canal s tenosis. The neural foramina are patent bilaterally. C3-C4: The thecal sac has a normal configuration. There is no evidence of disc herniation or spinal canal s tenosis. The neural foramina are patent bilaterally. C4-C5: There is a mild broad-based bulging. The neural foramina appear patent. C5-C6: Diffuse broad-based bulging. The neural foramina appear patent. C6-C7: Mild diffuse broad-based bulging and focal central bulging. The neural foramina appear patent. C7-T1: The thecal sac has a normal configuration. There is no evidence of disc herniation or spinal canal s tenosis. The neural foramina are patent bilaterally. CONCLUSION: 1. There is diffuse broad-based bulging and focal central bulging at C6-7. 2. There is broad-based bulging at C4-5 and C5-6. Cr Yang MD on April 14, 2017 at 15:10 Board Certified Radiologist. This report was verified electronically.
[2017-04-14] MEDS: NIFEdipine 60 MG SUSTAINED RELEASE TAB PO SCH (16:19)
[2017-04-14] MEDS: PRAVASTATIN SOD 40 MG TAB PO SCH (20:58)
[2017-04-14] MEDS: ENOXAPARIN SODIUM 40 MG/0.4 ML SYRINGE SQ SCH (20:59)
[2017-04-15] VITALS (14 sets, daily range): BP systolic 131–156; BP diastolic 69–87; PULSE 60–94; RESP 17–20; TEMP 98–98.3; O2SAT 94–98
[2017-04-15] MEDS: NIFEdipine 60 MG SUSTAINED RELEASE TAB PO SCH (08:09)
[2017-04-15] MEDS: INSULIN ASPART SUPPLEMENTAL SCALE SQ SCH (08:09)
[2017-04-15] MEDS: SODIUM CHLORIDE 0.9% FLUSH 10 ML FLUSH IV FLUSH SCH (08:09)
[2017-04-15] MEDS: DOCUSATE SODIUM 50 MG/SENNA 8.6 MG TAB PO SCH (08:10)
[2017-04-15] MEDS: metFORMIN HCL 500 MG TAB PO SCH (08:10)
[2017-04-15] MEDS: LISINOPRIL 20 MG TAB PO SCH (08:10)
[2017-04-15] MEDS: ASPIRIN 325 MG TAB PO SCH (08:13)
--- NOTE | 2017-04-15 08:52 | HHI.PR ---
Subjective Remarks Late charting patient was seen 04/14/17 Patient reports feeling much better no longer having chest pain Objective Vitals Vital Signs Date Time Temp Pulse Resp B/P (MAP) Pulse Ox O2 Delivery O2 Flow Rate FiO2 04/15/17 07:39 98.3 60 18 131/79 (96) 94 04/15/17 07:39 95 Room Air 04/15/17 07:00 68 04/15/17 06:00 61 04/15/17 05:00 62 04/15/17 04:00 Room Air 04/15/17 04:00 98.3 61 18 135/69 (91) 98 04/15/17 04:00 61 04/15/17 03:00 64 04/15/17 02:00 65 04/15/17 01:00 63 04/15/17 00:00 98.1 69 20 156/87 (110) 98 04/15/17 00:00 69 04/15/17 00:00 Room Air 04/14/17 23:00 67 04/14/17 22:00 68 04/14/17 21:00 65 04/14/17 20:00 Room Air 04/14/17 20:00 69 04/14/17 20:00 98.4 69 20 141/90 (107) 97 04/14/17 18:31 78 04/14/17 18:01 97 21 04/14/17 17:00 62 04/14/17 16:00 71 04/14/17 15:49 71 04/14/17 15:33 98.2 71 20 170/92 (118) 97 04/14/17 13:34 21 04/14/17 13:00 72 04/14/17 12:00 62 04/14/17 11:00 98.2 64 18 164/90 (114) 96 04/14/17 11:00 66 04/14/17 10:00 66 04/14/17 09:00 74 Result Diagram: 04/12/17 1710 04/12/17 1710 Other Results Laboratory Tests Test 04/12/17 17:10 04/12/17 22:40 04/13/17 06:14 White Blood Count 6.6 TH/MM3 Red Blood Count 4.47 MIL/MM3 Hemoglobin 13.3 GM/DL Hematocrit 40.6 % Mean Corpuscular Volume 90.9 FL Mean Corpuscular Hemoglobin 29.7 PG Mean Corpuscular Hemoglobin Concent 32.7 % Red Cell Distribution Width 13.5 % Platelet Count 218 TH/MM3 Mean Platelet Volume 9.7 FL Neutrophils (%) (Auto) 53.5 % Lymphocytes (%) (Auto) 34.8 % Monocytes (%) (Auto) 6.7 % Eosinophils (%) (Auto) 4.0 % Basophils (%) (Auto) 1.0 % Neutrophils # (Auto) 3.6 TH/MM3 Lymphocytes # (Auto) 2.3 TH/MM3 Monocytes # (Auto) 0.4 TH/MM3 Eosinophils # (Auto) 0.3 TH/MM3 Basophils # (Auto) 0.1 TH/MM3 CBC Comment DIFF FINAL Differential Comment Prothrombin Time 11.0 SEC Prothromb Time International Ratio 1.1 RATIO Activated Partial Thromboplast Time 24.9 SEC Blood Urea Nitrogen 12 MG/DL Creatinine 1.00 MG/DL Random Glucose 143 MG/DL Total Protein 6.9 GM/DL Albumin 3.4 GM/DL Calcium Level 8.8 MG/DL Magnesium Level 1.6 MG/DL Alkaline Phosphatase 86 U/L Aspartate Amino Transf (AST/SGOT) 40 U/L Alanine Aminotransferase (ALT/SGPT) 57 U/L Total Bilirubin 1.6 MG/DL Sodium Level 139 MEQ/L Potassium Level 4.4 MEQ/L Chloride Level 103 MEQ/L Carbon Dioxide Level 32.3 MEQ/L Anion Gap 4 MEQ/L Estimat Glomerular Filtration Rate 89 ML/MIN Total Creatine Kinase 255 U/L Creatine Kinase MB 2.7 NG/ML Troponin I 0.06 NG/ML 0.05 NG/ML 0.05 NG/ML Imaging Last Impressions Cervical Spine MRI 04/14/17 0000 Signed Impressions: Service Date/Time: Friday, April 14, 2017 14:12 - CONCLUSION: 1. There is diffuse broad-based bulging and focal central bulging at C6-7. 2. There is broad-based bulging at C4-5 and C5-6. Cr Yang MD Myocardial Perfusion Scan Nuc Med 04/13/17 0000 Signed Impressions: Service Date/Time: Thursday, April 13, 2017 10:08 - CONCLUSION: 1. Unremarkable myocardial perfusion scan. RISK CATEGORY: Low (<1%% Annual Mortality Rate) Charli Salguero MD Cervical Spine X-Ray 04/13/17 0000 Signed Impressions: Service Date/Time: Thursday, April 13, 2017 21:02 - CONCLUSION: 1. Diffuse cervical spondylosis. 2. No acute fracture or prevertebral soft tissue swelling. Mulugeta Sanderson MD Chest X-Ray 04/12/17 1642 Signed Impressions: Service Date/Time: April 16:53 - CONCLUSION: No acute cardiopulmonary abnormality is identified. Jim Miramontes MD Last 24 hours Impressions Chest X-Ray 04/12/17 1642 Signed Impressions: Service Date/Time: April 16:53 - CONCLUSION: No acute cardiopulmonary abnormality is identified. Jim Miramontes MD Objective Remarks GENERAL: This is a well-nourished, well-developed patient, in no apparent distress. CARDIOVASCULAR: Regular rate and rhythm RESPIRATORY: Clear to auscultation. Breath sounds equal bilaterally. GASTROINTESTINAL: Abdomen soft, non-tender, nondistended. No guarding. MUSCULOSKELETAL: Extremities without clubbing, cyanosis, or edema. No joint tenderness, effusion, or edema noted. No calf tenderness. Negative Homans sign bilaterally. NEUROLOGICAL: Awake and alert. No focal deficits noted. Motor and sensory grossly within normal limits. Five out of 5 muscle strength in all muscle groups. Normal speech. Procedures none A/P Problem List: (1) Hypertensive urgency ICD Codes: I16.0 - Hypertensive urgency Status: Acute Plan: patient was started on NTG drip and given labetalol with improvement will continue for now cardiology has added norvasc increase lisinopril to 20 mg BID wean off NTG PRN clonidine 04/14 BP still running high will DC Norvasc and start nifedipine 60 mg PO daily monitor overnight plan to DC tomorrow if BP improved (2) Chest pain ICD Codes: R07.9 - Chest pain, unspecified Status: Acute Plan: chest pain about 2 weeks duration pain free now with ntg drip continue asa and add Lovenox for now follow enzymes cardiac consult cardiac enzymes pattern flat appreciate cardiology input [place] reviewed unremarkable myocardial perfusion scan (3) Diabetes ICD Codes: E11.9 - Type 2 diabetes mellitus without complications Plan: continue metformin sliding scale (4) Neck pain ICD Codes: M54.2 - Cervicalgia Plan: Plan: Patient continues to c/o left arm stiffness worse with turning his head. Patient reports that this discomfort was much worse when he initially came in and seems to be improving. - Cspine x-ray series --> diffuse spondylosis in cervical spine - cervical MRI (04/14) --> there is diffuse broad-based bulging and focal central bulging at C6-7. There is broad-based bulging at C4-5 and C5-6. - results discussed with patient k Therma pad as needed Problem Qualifiers (1) Chest pain: Qualified Codes: R07.9 - Chest pain, unspecified (2) Diabetes: Qualified Codes: E11.8 - Type 2 diabetes mellitus with unspecified complications Griselda Fernandez Apr 15, 2017 08:52
[2017-04-15] MEDS ORDERED: NIFE60TA8 PO (08:55)
== END 2017-04-15 12:58 | disposition home or self-care (01) | DRG 305 ==
LOC: NEPC 16:18 → NEDA 18:45 → HCIS 21:09
PROVIDERS: ADMIT Hospitalist; ATTEND Hospitalist
DX: I16.0 Hypertensive urgency (principal); E11.9 Type 2 diabetes mellitus without complications; R07.89 Other chest pain; E78.00 Pure hypercholesterolemia, unspecified; I10 Essential (primary) hypertension; M47.9 Spondylosis, unspecified; Z79.84 Long term (current) use of oral hypoglycemic drugs
CPT/HCPCS: 71010; 72050; 72141; 78452; 80053; 82550; 82552; 82948; 83735; 84484; 85025; 85610; 85730; 93005; 93017; 96374; A9502; J1650; J1815; J2785

== ENCOUNTER 2017-07-07 22:43 | Inpatient (IN) | payer MEDICARE ==
[~2017-07-07] VITALS: Ht 170.2 cm; Wt 82.3 kg
[~2017-07-07 22:43] MED LIST changes: +LISI-515 PO; -LISI10TA3 PO; +NIFE60TA8 PO
[2017-07-07] MEDS ORDERED: IOHEXOL 350 MG/ML 10 ML VIAL (for RAD DIAG) IVCONTRAST ONE (22:44)
[2017-07-07 22:55] VITALS: BP 183/84; PULSE 110; RESP 26; TEMP 102.7; O2SAT 95
[2017-07-07 23:06] VITALS: BP 182/100; PULSE 110; RESP 20; O2SAT 94
[2017-07-07] MEDS ORDERED: SODIUM CHLOR 0.9% 1000 ML INJ 1,000 ML IV ONE (23:11)
[2017-07-07] MEDS ORDERED: cefTRIAXone INJ 1,000 MG in SODIUM CHLORIDE 0.9% INJ 100 ML IV ONE (23:15)
--- NOTE | 2017-07-07 23:29 | PD ---
HPI Chief Complaint: Complaint Time Seen by Provider: 23:08 Travel History International Travel<30 days: No Contact w/Intl Traveler<30days: No Traveled to known affect area: No History of Present Illness HPI 72-year-old male who underwent prostate biopsy by Dr. Garcia 2 days ago here complaining of inability to urinate with severe suprapubic abdominal discomfort as well as fever. Pain is severe, constant, worse with movement and palpation, described as pressure. No vomiting or diarrhea. No cough or upper respiratory symptoms. PFSH Past Medical History Cardiovascular Problems: Yes (HTN) High Cholesterol: Yes Diabetes: Yes (Metformin) Patient Takes Glucophage: Yes (07/07/2017 @ 2130) Diminished Hearing: No Hypertension: Yes Medical other: Yes (BPH) Immunizations Current: Yes Tetanus Vaccination: Unknown Influenza Vaccination: No Past Surgical History Cholecystectomy: Yes Other Surgery: Yes (byopsy of prostate) Social History Alcohol Use: No Tobacco Use: No Substance Use: No Allergies-Medications (Allergen,Severity, Reaction): Coded Allergies: acetaminophen (Verified Allergy, Unknown, 07/08/17) "my dr said not to take it because of my fatty liver" Reported Meds & Prescriptions Reported Meds & Active Scripts Active Nifedipine ER 24 HR (Nifedipine) 60 Mg Tab 60 Mg PO DAILY Lisinopril 20 Mg Tab 20 Mg PO BID Reported Aspirin Children's (Aspirin) 81 Mg Chew 81 Mg PO DAILY Simvastatin 20 Mg Tab 20 Mg PO HS Metformin (Metformin HCl) 1,000 Mg Tab 1,000 Mg PO BIDPC Review of Systems Except as stated in HPI: all other systems reviewed are Neg Physical Exam Narrative GENERAL: Well-developed, well-nourished, mild distress secondary to pain. SKIN: Focused skin assessment warm/dry. No rash. HEAD: Atraumatic. Normocephalic. EYES: Pupils equal and round. No scleral icterus. No injection or drainage. ENT: No nasal bleeding or discharge. Mucous membranes pink and moist. NECK: Trachea midline. No JVD. No nuchal rigidity. CARDIOVASCULAR: Regular rate and rhythm. RESPIRATORY: No accessory muscle use. Clear to auscultation. Breath sounds equal bilaterally. GASTROINTESTINAL: Abdomen soft, moderate suprapubic distention with tenderness with a bedside ultrasound showing a distended bladder. Rest of his abdomen is soft and nontender. Normal bowel sounds. No hernias. MUSCULOSKELETAL: No obvious deformities. No clubbing. No cyanosis. No edema. NEUROLOGICAL: Awake and alert. No obvious cranial nerve deficits. Motor grossly within normal limits. Normal speech. PSYCHIATRIC: Appropriate mood and affect; insight and judgment normal. Data Data Last Documented VS Vital Signs Date Time Temp Pulse Resp B/P (MAP) Pulse Ox O2 Delivery O2 Flow Rate FiO2 07/08/17 00:46 102.5 86 18 152/72 (98) 93 Room Air Orders Orders Sepsis Workup Initiated (07/07/17 ) Complete Blood Count With Diff (07/07/17 23:11) Comprehensive Metabolic Panel (07/07/17 23:11) Prothrombin Time / Inr (Pt) (07/07/17 23:11) Act Partial Throm Time (Ptt) (07/07/17 23:11) Lactic Acid Sepsis Protocol (07/07/17 23:11) Urinalysis - C+S If Indicated (07/07/17 23:11) Influenzae A/B Antigen (07/07/17 23:11) Blood Culture (07/07/17 23:11) Chest, Single Ap (07/07/17 23:11) Blood Glucose (07/07/17 23:11) Ecg Monitoring (07/07/17 23:11) Iv Access Insert/Monitor (07/07/17 23:11) Oximetry (07/07/17 23:11) Sodium Chlor 0.9% 1000 Ml Inj (Ns 1000 M (07/07/17 23:11) Ct Abd/Pel W Iv Contrast(Rout) (07/07/17 ) Urinary Catheter Insert/Apply (07/07/17 23:11) Ceftriaxone Inj (Rocephin Inj) (07/07/17 23:15) Ibuprofen (Motrin) (07/08/17 00:30) Iohexol 350 Inj (Omnipaque 350 Inj) (07/07/17 22:44) Acetaminophen (Tylenol) (07/08/17 01:15) Labs Laboratory Tests Test 07/07/17 23:15 07/07/17 23:30 Urine Color YELLOW Urine Turbidity CLEAR Urine pH 7.0 Urine Specific [place] 1.023 Urine Protein TRACE mg/dL Urine Glucose (UA) 1000 mg/dL Urine Ketones NEG mg/dL Urine Occult Blood MOD Urine Nitrite NEG Urine Bilirubin NEG Urine Urobilinogen LESS THAN 2.0 MG/DL Urine Leukocyte Esterase NEG Urine RBC 59 /hpf Urine WBC 3 /hpf Microscopic Urinalysis Comment CATH-CULT NOT IND White Blood Count 13.2 TH/MM3 Red Blood Count 5.37 MIL/MM3 Hemoglobin 15.9 GM/DL Hematocrit 47.6 % Mean Corpuscular Volume 88.6 FL Mean Corpuscular Hemoglobin 29.7 PG Mean Corpuscular Hemoglobin Concent 33.5 % Red Cell Distribution Width 13.8 % Platelet Count 195 TH/MM3 Mean Platelet Volume 9.3 FL Neutrophils (%) (Auto) 88.4 % Lymphocytes (%) (Auto) 5.2 % Monocytes (%) (Auto) 6.2 % Eosinophils (%) (Auto) 0.0 % Basophils (%) (Auto) 0.2 % Neutrophils # (Auto) 11.7 TH/MM3 Lymphocytes # (Auto) 0.7 TH/MM3 Monocytes # (Auto) 0.8 TH/MM3 Eosinophils # (Auto) 0.0 TH/MM3 Basophils # (Auto) 0.0 TH/MM3 CBC Comment DIFF FINAL Differential Comment Prothrombin Time 15.2 SEC Prothromb Time International Ratio 1.5 RATIO Activated Partial Thromboplast Time 31.9 SEC Blood Urea Nitrogen 20 MG/DL Creatinine 1.30 MG/DL Random Glucose 194 MG/DL Total Protein 7.6 GM/DL Albumin 3.5 GM/DL Calcium Level 9.1 MG/DL Alkaline Phosphatase 156 U/L Aspartate Amino Transf (AST/SGOT) 101 U/L Alanine Aminotransferase (ALT/SGPT) 117 U/L Total Bilirubin 3.8 MG/DL Sodium Level 134 MEQ/L Potassium Level 4.3 MEQ/L Chloride Level 100 MEQ/L Carbon Dioxide Level 26.9 MEQ/L Anion Gap 7 MEQ/L Estimat Glomerular Filtration Rate 66 ML/MIN Lactic Acid Level 2.6 mmol/L [facility] Medical Decision Making Medical Screen Exam Complete: Yes Emergency Medical Condition: Yes Medical Record Reviewed: Yes Differential Diagnosis Urinary retention, prostatitis, UTI, pyelonephritis, sepsis Narrative Course Zhao catheter was placed shortly after my assessment with 800 cc of clear/ yellow urine output. His abdominal pain resolved after the Zhao was placed. Initial vital signs show heart rate 110, blood pressure 183/84, pulse ox 95% on room air, oral temperature 102.7F. CBC: WBC 13.2, hemoglobin 15.9, hematocrit 47.6, platelets 195, neutrophils 88.4 %. CMP is remarkable for random glucose 194, BUN 20, creatinine 1.3, GFR 66, AST 101, ALT 117 UA shows 1000 glucose, moderate occult blood, 59 RBCs, 3 WBCs, not suggestive of UTI. Lactic acid is 2.6. Chest x-ray read as the lungs are clear. CT abdomen pelvis: Nonspecific bilateral inguinal lymph nodes. Prostatic enlargement. Zhao catheter in place. Influenza is negative. Patient was empirically written for a dose of 1 g of IV Rocephin for sepsis with likely urinary source. UTI does not appear to show any signs of infection. There is a likelihood that the patient has become bacteremic after his prostate biopsy on . His lactic acid is 2.6 and he is febrile. His heart rate improved after 1 L normal saline IV. He will be admitted for further treatment and evaluation of sepsis, rule out bacteremia. Case discussed with [facility] hospitalist Dr. Cotter who will admit the patient to his service. Diagnosis Primary Impression: Sepsis Qualified Codes: A41.9 - Sepsis, unspecified organism Additional Impression: Urinary retention Admitting Information Admitting Physician Requests: it Adarsh Navarro MD Jul 07, 2017 23:29
--- NOTE | 2017-07-07 23:43 | RADRPT ---
EXAM DATE/TIME: 07/07/2017 23:22 [facility] COMPARISON: CHEST SINGLE AP, April 12, 2017, 16:53. INDICATIONS : Constipation and headache with fever. Unable to urinate x 2 days. MEDICAL HISTORY : Diabetes mellitus type II. Hypercholesterolemia. Hypertension. SURGICAL HISTORY : Cholecystectomy. Prostate biopsy ENCOUNTER: Initial ACUITY: 2 days PAIN SCORE: 7/10 LOCATION: Bilateral chest FINDINGS: Mild patient rotation towards the left. A single view of the chest demonstrates the lungs to be symm etrically aerated without evidence of mass, infiltrate or effusion. The cardiomediastinal contours a re unremarkable. Osseous structures are intact. CONCLUSION: The lungs are clear. Baron Fonseca MD on July 07, 2017 at 23:42 Board Certified Radiologist. This report was verified electronically.
[2017-07-07 23:48] VITALS: BP 150/74; PULSE 87; RESP 18; O2SAT 93
[2017-07-08] VITALS (11 sets, daily range): BP systolic 100–152; BP diastolic 60–77; PULSE 65–102; RESP 18–22; TEMP 97.9–102.5; O2SAT 92–96
[2017-07-08 00:19] LABS: AUTOMATED NEUTROPHIL # 11.7 TH/MM3 (1.8-7.7); BASOPHIL % 0.2 % (0.0-2.0); HEMATOCRIT 47.6 % (39.0-51.0); HEMOGLOBIN 15.9 GM/DL (13.0-17.0); LYMPH % 5.2 % (9.0-44.0); LYMPHOCYTE # 0.7 TH/MM3 (1.0-4.8); MEAN CELL VOLUME 88.6 FL (80.0-100.0); MEAN CORPUSCULAR HEMOGLOBIN 29.7 PG (27.0-34.0); MEAN CORPUSCULAR HGB CONC 33.5 % (32.0-36.0); MEAN PLATELET VOLUME 9.3 FL (7.0-11.0); MONO % 6.2 % (0.0-8.0); MONOCYTE # 0.8 TH/MM3 (0-0.9); NEUT % 88.4 % (16.0-70.0); PLATELET COUNT 195 TH/MM3 (150-450); RED BLOOD COUNT 5.37 MIL/MM3 (4.50-5.90); RED CELL DISTRIBUTION WIDTH 13.8 % (11.6-17.2); WHITE BLOOD COUNT 13.2 TH/MM3 (4.0-11.0)
[2017-07-08 00:29] LABS: LACTIC ACID SEPSIS PROTOCOL 2.6 mmol/L (0.4-2.0)
[2017-07-08] MEDS ORDERED: IBUPROFEN 600 MG TAB PO ONE (00:30)
[2017-07-08 00:33] LABS: ALBUMIN 3.5 GM/DL (3.4-5.0); AST (GOT) 101 U/L (15-37); BICARBONATE 26.9 MEQ/L (21.0-32.0); BLOOD UREA NITROGEN 20 MG/DL (7-18); CALCIUM 9.1 MG/DL (8.5-10.1); CHLORIDE 100 MEQ/L (98-107); GLOMERULAR FILTRATION RATE 66 ML/MIN (>89); GLUCOSE,RANDOM 194 MG/DL (74-106); SODIUM (NA) 134 MEQ/L (136-145)
[2017-07-08 00:35] LABS: ALKALINE PHOSPHATASE 156 U/L (45-117); ALT (GPT) 117 U/L (12-78); TOTAL BILIRUBIN ADULT 3.8 MG/DL (0.2-1.0); TOTAL PROTEIN 7.6 GM/DL (6.4-8.2)
[2017-07-08 00:42] LABS: INTERNATIONAL NORMALIZED RATIO 1.5 RATIO; PROTHROMBIN TIME - PATIENT 15.2 SEC (9.8-11.6)
[2017-07-08 00:48] LABS: BILIRUBIN, URINE NEG (NEG); BLOOD, URINE MOD (NEG); GLUCOSE,URINE 1000 mg/dL (NEG); KETONE, URINE NEG (NEG); NITRITE,URINE NEG (NEG); URINE COLOR YELLOW (YELLW/STRAW); URINE LEUKOCYTE ESTERASE NEG (NEG)
[2017-07-08] MEDS ORDERED: ACETAMINOPHEN 325 MG TAB PO ONE (01:15)
--- NOTE | 2017-07-08 01:20 | RADRPT ---
EXAM DATE/TIME: 07/08/2017 01:00 [facility] COMPARISON: No previous studies available for comparison. INDICATIONS : Suprapublic pain past 2 days. IV CONTRAST: 95 cc Omnipaque 350 (iohexol) IV ORAL CONTRAST: No oral contrast ingested. RADIATION DOSE: 9.73 CTDIvol (mGy) MEDICAL HISTORY : Cardiovascular disease. Hypertension. Diabetes mellitus type 2. SURGICAL HISTORY : Cholecystectomy. ENCOUNTER: Initial ACUITY: 2 days PAIN SCALE: 7/10 LOCATION: suprapublic area TECHNIQUE: Volumetric scanning of the abdomen and pelvis was performed. Using automated exposure control and ad justment of the mA and/or kV according to patient size, radiation dose was kept as low as reasonably achievable to obtain optimal diagnostic quality images. DICOM format image data is available electro nically for review and comparison. FINDINGS: LOWER LUNGS: The visualized lower lungs are clear. LIVER: Homogeneous density without lesion. There is no dilation of the biliary tree. Cholecystectomy. SPLEEN: Normal size without lesion. PANCREAS: Within normal limits. KIDNEYS: Normal in size and shape. There is no mass, stone or hydronephrosis. ADRENAL GLANDS: Within normal limits. VASCULAR: There is no aortic aneurysm. BOWEL/MESENTERY: No dilated loops of small or large bowel. ABDOMINAL WALL: Within normal limits. RETROPERITONEUM: There is no lymphadenopathy. BLADDER: No wall thickening or mass. Zhao catheter in place. REPRODUCTIVE: Moderate enlargement of the prostate measuring 6.3 cm in width. INGUINAL: There are multiple mildly prominent bilateral inguinal lymph nodes, most of which measure less than 1 cm, but there are to a left side measuring up to 2.6 cm. The prominent fat containing inguinal alex l on the right side without associated inguinal hernia. MUSCULOSKELETAL: Within normal limits for patient age. CONCLUSION: 1. Nonspecific bilateral inguinal lymph nodes. 2. Prostatic enlargement. Zhao catheter in place. Baron Fonseca MD on July 08, 2017 at 1:13 Board Certified Radiologist. This report was verified electronically.
[2017-07-08] MEDS ORDERED: ENALAPRILAT 1.25 MG/ML VIAL IV PRN (02:00)
[2017-07-08] MEDS ORDERED: ACETAMINOPHEN 325 MG TAB PO PRN (02:00)
[2017-07-08] MEDS ORDERED: ONDANSETRON HCL 4 MG/2 ML VIAL IVP PRN (02:00)
[2017-07-08] MEDS ORDERED: NALOXONE HCL 0.4 MG/ML AMP IV PUSH PRN (02:00)
[2017-07-08] MEDS ORDERED: cloNIDine HCL 0.2 MG TAB PO PRN ×2 (02:00→14:00)
[2017-07-08] MEDS: PIPERACIL-TAZO 3.375 GM PREMIX 50 ML IV SCH ×4 (02:07→20:02)
[2017-07-08] MEDS: INSULIN ASPART SUPPLEMENTAL SCALE SQ SCH ×4 (08:00→20:02)
[2017-07-08] MEDS: ASPIRIN 81 MG CHEW TAB PO SCH (08:59)
[2017-07-08] MEDS: NIFEdipine 60 MG SUSTAINED RELEASE TAB PO SCH (08:59)
[2017-07-08] MEDS: LISINOPRIL 20 MG TAB PO SCH ×2 (09:00→20:02)
[2017-07-08] MEDS: SODIUM CHLORIDE 0.9% FLUSH 10 ML FLUSH IV FLUSH SCH ×2 (09:00→20:03)
--- NOTE | 2017-07-08 09:05 | EKG ---
Date Performed: 07/08/2017 Time Performed: 02:08:10 PTAGE: 72 years EKG: Sinus rhythm NONSPECIFIC T-WAVE ABNORMALITY BORDERLINE ECG PREVIOUS TRACING : 04/13/2017 08.18 DOCTOR: Brandyn Zimmerman Interpretating Date/Time 07/08/2017 09:03:06
--- NOTE | 2017-07-08 09:08 | HHI.HP ---
HPI Service [facility] Hospitalists Primary Care Physician Weston León MD, PhD Admission Diagnosis Sepsis, urinary retention, rule out bacteremia Chief Complaint: unable to urinate, abd pain and fever Travel History International Travel<30 Days: No Contact w/Intl Traveler <30 Da: No Traveled to Known Affected Are: No History of Present Illness This is a 72-year-old male patient with history of high cholesterol, diabetes and enlarged prostate. Patient underwent prostate biopsy by Dr. Garcia 3 days ago then presented to the ER with complains of inability to urinate x 2 days. Patient also c/o severe suprapubic abdominal discomfort as well as fever. Pain is severe, constant, worse with movement and palpation, described as pressure. Patient presented to the ER with a temperature of 102.7. Denies N/V, cough, congestion, SOB or chest pain. Mark was placed in ER with 800ml returned. Abdominal pain resolved after mark place. WBC 13.[address] abdomen/pelvic conclusion: nonspecific bilateral inguinal lymph nodes. Prostatic enlargement and mark catheter in place Review of Systems Constitutional: COMPLAINS OF: Fever, DENIES: Fatigue, Chills Eyes: DENIES: Blurred vision, Diplopia, Vision loss Respiratory: DENIES: Cough, Sputum production, Shortness of breath Cardiovascular: DENIES: Chest pain, Palpitations, Dyspnea on Exertion, Lower Extremity Edema Gastrointestinal: COMPLAINS OF: Abdominal pain Neurologic: DENIES: Abnormal gait, Headache, Speech Problems Psychiatric: DENIES: Anxiety, Confusion, Depression Past Family Social History Past Medical History hypertension,hyperlipidemia,diabetes Past Surgical History cholecystomy Reported Medications Nifedipine ER 24 HR (Nifedipine) 60 Mg Tab 60 Mg PO DAILY Lisinopril 20 Mg Tab 20 Mg PO BID Aspirin Children's (Aspirin) 81 Mg Chew 81 Mg PO DAILY Simvastatin 20 Mg Tab 20 Mg PO HS Metformin (Metformin HCl) 1,000 Mg Tab 1,000 Mg PO BIDPC Allergies: Coded Allergies: acetaminophen (Verified Allergy, Unknown, 07/08/17) "my dr said not to take it because of my fatty liver" Family History Noncontributory Social History denies ETOH use or tobacco use Physical Exam Vital Signs Vital Signs Date Time Temp Pulse Resp B/P (MAP) Pulse Ox O2 Delivery O2 Flow Rate FiO2 07/08/17 08:38 97.9 65 20 100/72 (81) 96 07/08/17 08:36 74 07/08/17 05:35 73 07/08/17 04:46 98.0 72 18 125/68 (87) 93 07/08/17 02:48 78 18 137/66 (89) 94 07/08/17 02:02 99.9 86 18 143/70 (94) 95 Room Air 07/08/17 00:46 102.5 86 18 152/72 (98) 93 Room Air 07/07/17 23:48 87 18 150/74 (99) 93 Room Air 07/07/17 23:06 110 20 182/100 (127) 94 Room Air 07/07/17 22:55 102.7 110 26 183/84 (117) 95 Physical Exam GENERAL: This is a well-nourished, well-developed patient, in no apparent distress. SKIN: No rashes, ecchymoses or lesions. Cool and dry. CARDIOVASCULAR: Regular rate and rhythm RESPIRATORY: Clear to auscultation. Breath sounds equal bilaterally. GASTROINTESTINAL: Abdomen soft, mild generalized tenderness, nondistended. GENITOURINARY: mark in place and draining MUSCULOSKELETAL: Extremities without clubbing, cyanosis, or edema. NEUROLOGICAL: Awake and alert. no focal deficits. Motor and sensory grossly within normal limits. Five out of 5 muscle strength in all muscle groups. Normal speech. Laboratory Laboratory Tests Test 07/07/17 23:15 07/07/17 23:30 07/08/17 02:10 Urine Color YELLOW Urine Turbidity CLEAR Urine pH 7.0 Urine Specific [place] 1.023 Urine Protein TRACE Urine Glucose (UA) 1000 Urine Ketones NEG Urine Occult Blood MOD Urine Nitrite NEG Urine Bilirubin NEG Urine Urobilinogen LESS THAN 2.0 Urine Leukocyte Esterase NEG Urine RBC 59 Urine WBC 3 Microscopic Urinalysis Comment CATH-CULT NOT IND White Blood Count 13.2 Red Blood Count 5.37 Hemoglobin 15.9 Hematocrit 47.6 Mean Corpuscular Volume 88.6 Mean Corpuscular Hemoglobin 29.7 Mean Corpuscular Hemoglobin Concent 33.5 Red Cell Distribution Width 13.8 Platelet Count 195 Mean Platelet Volume 9.3 Neutrophils (%) (Auto) 88.4 Lymphocytes (%) (Auto) 5.2 Monocytes (%) (Auto) 6.2 Eosinophils (%) (Auto) 0.0 Basophils (%) (Auto) 0.2 Neutrophils # (Auto) 11.7 Lymphocytes # (Auto) 0.7 Monocytes # (Auto) 0.8 Eosinophils # (Auto) 0.0 Basophils # (Auto) 0.0 CBC Comment DIFF FINAL Differential Comment Prothrombin Time 15.2 Prothromb Time International Ratio 1.5 Activated Partial Thromboplast Time 31.9 Blood Urea Nitrogen 20 Creatinine 1.30 Random Glucose 194 Total Protein 7.6 Albumin 3.5 Calcium Level 9.1 Alkaline Phosphatase 156 Aspartate Amino Transf (AST/SGOT) 101 Alanine Aminotransferase (ALT/SGPT) 117 Total Bilirubin 3.8 Sodium Level 134 Potassium Level 4.3 Chloride Level 100 Carbon Dioxide Level 26.9 Anion Gap 7 Estimat Glomerular Filtration Rate 66 Lactic Acid Level 2.6 1.4 Date/Time Source Procedure Growth Status 07/07/17 23:35 Blood Peripheral Aerobic Blood Culture Pending Received 07/07/17 23:35 Blood Peripheral Anaerobic Blood Culture Pending Received 07/07/17 23:30 Nasal Washing Influenza Types A,B Antigen (GUIDO) - Final NEGATIVE FOR FLU A AND B ANTIGEN.... Complete Result Diagram: 07/07/17 2330 07/07/17 2330 Imaging Last Impressions Chest X-Ray 07/07/17 2311 Signed Impressions: Service Date/Time: Friday, July 07, 2017 23:22 - CONCLUSION: The lungs are clear. Baron Fonseca MD Abdomen/Pelvis CT 07/07/17 0000 Signed Impressions: Service Date/Time: Saturday, July 08, 2017 01:00 - CONCLUSION: 1. Nonspecific bilateral inguinal lymph nodes. 2. Prostatic enlargement. Mark catheter in place. Baron Fonseca MD Caprini VTE Risk Assessment Caprini VTE Risk Assessment: Mod/High Risk (score >= 2) Caprini Risk Assessment Model Point Value = 1 Point Value = 2 Point Value = 3 Point Value = 5 Age 41-60 Minor surgery BMI > 25 kg/m2 Swollen legs Varicose veins or History of unexplained or recurrent spontaneous Oral contraceptives or hormone replacement Sepsis (< 1 month) Serious lung disease, including pneumonia (< 1 month) Abnormal pulmonary function Acute myocardial infarction Congestive heart failure (< 1 month) History of inflammatory bowel disease Medical patient at bed rest Age 61-74 Arthroscopic surgery Major open surgery (> 45 min) Laparoscopic surgery (> 45 min) Malignancy Confined to bed (> 72 hours) Immobilizing plaster cast Central venous access Age >= 75 History of VTE Family history of VTE Factor V Leiden Prothrombin [id number] Lupus anticoagulant Anticardiolipin antibodies Elevated serum homocysteine Heparin-induced thrombocytopenia Other congenital or acquired thrombophilia Stroke (< 1 month) Elective arthroplasty Hip, pelvis, or leg fracture Acute spinal cord injury (< 1 month) Prophylaxis Regimen Total Risk Factor Score Risk Level Prophylaxis Regimen 0-1 Low Early ambulation 2 Moderate Order ONE of the following: *Sequential Compression Device (SCD) *Heparin 5000 units SQ BID 3-4 Higher Order ONE of the following medications: *Heparin 5000 units SQ TID *Enoxaparin/Lovenox 40 mg SQ daily (WT < 150 kg, CrCl > 30 mL/min) *Enoxaparin/Lovenox 30 mg SQ daily (WT < 150 kg, CrCl > 10-29 mL/min) *Enoxaparin/Lovenox 30 mg SQ BID (WT < 150 kg, CrCl > 30 mL/min) AND/OR *Sequential Compression Device (SCD) 5 or more Highest Order ONE of the following medications: *Heparin 5000 units SQ TID (Preferred with Epidurals) *Enoxaparin/Lovenox 40 mg SQ daily (WT < 150 kg, CrCl > 30 mL/min) *Enoxaparin/Lovenox 30 mg SQ daily (WT < 150 kg, CrCl > 10-29 mL/min) *Enoxaparin/Lovenox 30 mg SQ BID (WT < 150 kg, CrCl > 30 mL/min) AND *Sequential Compression Device (SCD) Assessment and Plan Problem List: (1) Fever ICD Codes: R50.9 - Fever, unspecified Plan: Patient underwent prostate biopsy by Dr. Garcia 2 days ago then presented to the ER complaining of inability to urinate. Patient also c/o severe suprapubic abdominal discomfort as well as fever. Pain is severe, constant, worse with movement and palpation, described as pressure. Denies N/V, cough, congestion, SOB or chest pain. - Mark was placed in ER with 800ml returned. Abdominal pain resolved after mark place. - T max 102.7 - UA reviewed 1000 glucose, moderate occult blood, 59 RBCs, 3 WBCs, not suggestive of UTI. - Patient started on Rocephin x 1 in the ER due to concern for possible UTI - Zosyn started - CBC: WBC 13.2, hemoglobin 15.9, hematocrit 47.6, platelets 195, neutrophils 88.4%. - Lactic acid is 2.6 -> 1.4 - Chest x-ray read as the lungs are clear. - CT abdomen pelvis: Nonspecific bilateral inguinal lymph nodes. Prostatic enlargement. Mark catheter in place. - Blood cultures x 2 obtained and pending - Influenza negative (2) Urinary retention ICD Codes: R33.9 - Retention of urine, unspecified Status: Acute Plan: - Mark was placed in ER with 800ml returned. Abdominal pain resolved after mark place. - BUN 20, Creatinine 1.30, estimated GFR 66 - start Flomax - consult Dr. Garcia (3) HTN (hypertension) ICD Codes: I10 - Essential (primary) hypertension Plan: Continue home Nifedipine 60 mg daily and lisinopril 20 mg PO BID monitor BP BP was elevated when patient arrived to the ER 182/100 will add Vasotec and clonidine as needed (4) Hyperlipemia ICD Codes: E78.5 - Hyperlipidemia, unspecified Plan: hold statin due to elevated liver enzymes total Bilirubin 3.8, AST 101, ALT 117, alkaline phosphatase 156 (5) Diabetes ICD Codes: E11.9 - Type 2 diabetes mellitus without complications Plan: Hold oral diabetic medication Diabetic diet accu checks ACHS with SSI coverage (6) Elevated LFTs ICD Codes: R79.89 - Other specified abnormal findings of blood chemistry Plan: hold statin due to elevated liver enzymes total Bilirubin 3.8, AST 101, ALT 117, alkaline phosphatase 156 CT abdomen/pelvic conclusion: nonspecific bilateral inguinal lymph nodes. Prostatic enlargement and mark catheter in place MRI abd/pelvic requested Assessment and Plan Patient examined. Assessment and plan formulated with Griselda Fernandez PA-C. I agree with the above. Physician Certification 2 Midnight Certification Type: Admission for Inpatient Services Order for Inpatient Services The services are ordered in accordance with Medicare regulations or non- Medicare payer requirements, as applicable. In the case of services not specified as inpatient-only, they are appropriately provided as inpatient services in accordance with the 2-midnight benchmark. Estimated LOS (days): 3 days is the estimated time the patient will need to remain in the hospital, assuming treatment plan goals are met and no additional complications. Post-Hospital Plan: Not yet determined Griselda Fernandez Jul 08, 2017 09:08 Alec Cotetr DO Jul 09, 2017 12:40
[2017-07-08] MEDS ORDERED: TAMSULOSIN HCL 0.4 MG CAP PO ONE (14:45)
[2017-07-08] MEDS: SODIUM CHLOR 0.9% 1000 ML INJ 1,000 ML IV SCH (16:58)
--- NOTE | 2017-07-08 17:45 | RADRPT ---
EXAM DATE/TIME: 07/08/2017 16:10 [facility] COMPARISON: CT ABDOMEN & PELVIS W CONTRAST, July 08, 2017, 1:00. INDICATIONS : Elevated LFTs MEDICAL HISTORY : Hypertension. Diabetes mellitus type 2. Hypercholesterolemia. SURGICAL HISTORY : Cholecystectomy. ENCOUNTER: Initial ACUITY: 1 day PAIN SCORE: 0/10 LOCATION: Abdomen TECHNIQUE: Multiplanar, multisequence magnetic resonance imaging of the abdomen was performed. High-resolution 3D dataset was utilized to reconstruct maximum-intensity projection (MIP) images. FINDINGS: INTRAHEPATIC BILE DUCTS: Within normal limits. No significant anatomical variant is present. EXTRAHEPATIC BILE DUCTS: The common bile duct measures 3.5 mm. No stone or filling defect is identified. GALLBLADDER: Cholecystectomy. LIVER: Normal size and signal intensity. No concerning liver lesion is identified on this non-contrast exam. PANCREAS: The main pancreatic duct is normal in size. There is no significant anatomical variant. Signal inte nsity is within normal limits. No mass is visualized on this non-contrast exam. OTHER: The remaining visualized structures demonstrate no acute abnormality on this non-contrast exam. CONCLUSION: 1. The intrahepatic and extrahepatic biliary tree is normal. 2. The liver is unremarkable. Alfonso Dawson MD on July 08, 2017 at 17:42 Board Certified Radiologist. This report was verified electronically.
[2017-07-08] MEDS: IBUPROFEN 600 MG TAB PO PRN (18:14)
[2017-07-08] MEDS ORDERED: PRAVASTATIN SOD 40 MG TAB PO SCH (21:00)
[2017-07-09] VITALS: BP 139/77; PULSE 76; RESP 20; TEMP 99.1; O2SAT 92
[2017-07-09] MEDS: PIPERACIL-TAZO 3.375 GM PREMIX 50 ML IV SCH ×4 (03:08→21:22)
[2017-07-09 04:00] VITALS: BP 137/71; PULSE 94; RESP 21; TEMP 98.9; O2SAT 94
[2017-07-09 04:23] LABS: AUTOMATED NEUTROPHIL # 5.4 TH/MM3 (1.8-7.7); BASOPHIL % 0.6 % (0.0-2.0); EOSINOPHIL % 0.6 % (0.0-4.0); HEMATOCRIT 42.8 % (39.0-51.0); HEMOGLOBIN 14.3 GM/DL (13.0-17.0); LYMPH % 11.5 % (9.0-44.0); LYMPHOCYTE # 0.8 TH/MM3 (1.0-4.8); MEAN CELL VOLUME 88.2 FL (80.0-100.0); MEAN CORPUSCULAR HEMOGLOBIN 29.4 PG (27.0-34.0); MEAN CORPUSCULAR HGB CONC 33.3 % (32.0-36.0); MEAN PLATELET VOLUME 8.6 FL (7.0-11.0); MONO % 11.4 % (0.0-8.0); MONOCYTE # 0.8 TH/MM3 (0-0.9); NEUT % 75.9 % (16.0-70.0); PLATELET COUNT 173 TH/MM3 (150-450); RED BLOOD COUNT 4.85 MIL/MM3 (4.50-5.90); RED CELL DISTRIBUTION WIDTH 14.1 % (11.6-17.2); WHITE BLOOD COUNT 7.1 TH/MM3 (4.0-11.0)
[2017-07-09 04:55] LABS: ALBUMIN 2.5 GM/DL (3.4-5.0); ALKALINE PHOSPHATASE 148 U/L (45-117); ALT (GPT) 72 U/L (12-78); AST (GOT) 55 U/L (15-37); BICARBONATE 24.9 MEQ/L (21.0-32.0); BLOOD UREA NITROGEN 19 MG/DL (7-18); CALCIUM 8.9 MG/DL (8.5-10.1); CHLORIDE 103 MEQ/L (98-107); CREATININE 1.07 MG/DL (0.60-1.30); GLOMERULAR FILTRATION RATE 83 ML/MIN (>89); GLUCOSE,RANDOM 113 MG/DL (74-106); SODIUM (NA) 138 MEQ/L (136-145); TOTAL BILIRUBIN ADULT 2.7 MG/DL (0.2-1.0); TOTAL PROTEIN 6.4 GM/DL (6.4-8.2)
[2017-07-09] MEDS ORDERED: KETOROLAC TROMETHAMINE 30 MG/ML (IVP) VIAL IV PUSH ONE (06:30)
[2017-07-09 08:00] VITALS: BP 134/75; PULSE 83; RESP 18; TEMP 98.6; O2SAT 93
[2017-07-09] MEDS: INSULIN ASPART SUPPLEMENTAL SCALE SQ SCH ×4 (08:00→21:21)
[2017-07-09] MEDS: ASPIRIN 81 MG CHEW TAB PO SCH (08:47)
[2017-07-09] MEDS: NIFEdipine 60 MG SUSTAINED RELEASE TAB PO SCH (08:48)
[2017-07-09] MEDS: TAMSULOSIN HCL 0.4 MG CAP PO SCH (08:48)
[2017-07-09] MEDS: LISINOPRIL 20 MG TAB PO SCH ×2 (08:48→21:13)
[2017-07-09] MEDS: IBUPROFEN 600 MG TAB PO PRN ×2 (08:58→19:27)
[2017-07-09] MEDS: SODIUM CHLORIDE 0.9% FLUSH 10 ML FLUSH IV FLUSH SCH ×2 (09:00→21:13)
--- NOTE | 2017-07-09 09:46 | HHI.PR ---
Subjective Remarks Patient c/o generalized body aches reports abd pain resolved Objective Vitals Vital Signs Date Time Temp Pulse Resp B/P (MAP) Pulse Ox O2 Delivery O2 Flow Rate FiO2 07/09/17 04:00 98.9 94 21 137/71 (93) 94 07/09/17 00:00 99.1 76 20 139/77 (97) 92 07/08/17 20:00 99.4 102 21 136/77 (96) 92 07/08/17 19:57 100 07/08/17 16:00 101.1 93 22 151/74 (99) 93 07/08/17 11:57 98.2 68 20 122/60 (80) 96 Result Diagram: 07/09/17 0407 07/09/17 040 Other Results Laboratory Tests Test 07/07/17 23:15 07/07/17 23:30 07/08/17 02:10 07/09/17 04:07 Urine Color YELLOW Urine Turbidity CLEAR Urine pH 7.0 Urine Specific [place] 1.023 Urine Protein TRACE mg/dL Urine Glucose (UA) 1000 mg/dL Urine Ketones NEG mg/dL Urine Occult Blood MOD Urine Nitrite NEG Urine Bilirubin NEG Urine Urobilinogen LESS THAN 2.0 MG/DL Urine Leukocyte Esterase NEG Urine RBC 59 /hpf Urine WBC 3 /hpf Microscopic Urinalysis Comment CATH-CULT NOT IND White Blood Count 13.2 TH/MM3 7.1 TH/MM3 Red Blood Count 5.37 MIL/MM3 4.85 MIL/MM3 Hemoglobin 15.9 GM/DL 14.3 GM/DL Hematocrit 47.6 % 42.8 % Mean Corpuscular Volume 88.6 FL 88.2 FL Mean Corpuscular Hemoglobin 29.7 PG 29.4 PG Mean Corpuscular Hemoglobin Concent 33.5 % 33.3 % Red Cell Distribution Width 13.8 % 14.1 % Platelet Count 195 TH/MM3 173 TH/MM3 Mean Platelet Volume 9.3 FL 8.6 FL Neutrophils (%) (Auto) 88.4 % 75.9 % Lymphocytes (%) (Auto) 5.2 % 11.5 % Monocytes (%) (Auto) 6.2 % 11.4 % Eosinophils (%) (Auto) 0.0 % 0.6 % Basophils (%) (Auto) 0.2 % 0.6 % Neutrophils # (Auto) 11.7 TH/MM3 5.4 TH/MM3 Lymphocytes # (Auto) 0.7 TH/MM3 0.8 TH/MM3 Monocytes # (Auto) 0.8 TH/MM3 0.8 TH/MM3 Eosinophils # (Auto) 0.0 TH/MM3 0.0 TH/MM3 Basophils # (Auto) 0.0 TH/MM3 0.0 TH/MM3 CBC Comment DIFF FINAL DIFF FINAL Differential Comment Prothrombin Time 15.2 SEC Prothromb Time International Ratio 1.5 RATIO Activated Partial Thromboplast Time 31.9 SEC Blood Urea Nitrogen 20 MG/DL 19 MG/DL Creatinine 1.30 MG/DL 1.07 MG/DL Random Glucose 194 MG/DL 113 MG/DL Total Protein 7.6 GM/DL 6.4 GM/DL Albumin 3.5 GM/DL 2.5 GM/DL Calcium Level 9.1 MG/DL 8.9 MG/DL Alkaline Phosphatase 156 U/L 148 U/L Aspartate Amino Transf (AST/SGOT) 101 U/L 55 U/L Alanine Aminotransferase (ALT/SGPT) 117 U/L 72 U/L Total Bilirubin 3.8 MG/DL 2.7 MG/DL Sodium Level 134 MEQ/L 138 MEQ/L Potassium Level 4.3 MEQ/L 3.9 MEQ/L Chloride Level 100 MEQ/L 103 MEQ/L Carbon Dioxide Level 26.9 MEQ/L 24.9 MEQ/L Anion Gap 7 MEQ/L 10 MEQ/L Estimat Glomerular Filtration Rate 66 ML/MIN 83 ML/MIN Lactic Acid Level 2.6 mmol/L 1.4 mmol/L Imaging Last Impressions Chest X-Ray 07/07/17 2311 Signed Impressions: Service Date/Time: Friday, July 07, 2017 23:22 - CONCLUSION: The lungs are clear. Baron Fonseca MD Abdomen/Pelvis CT 07/07/17 0000 Signed Impressions: Service Date/Time: Saturday, July 08, 2017 01:00 - CONCLUSION: 1. Nonspecific bilateral inguinal lymph nodes. 2. Prostatic enlargement. Mark catheter in place. Baron Fonseca MD Objective Remarks GENERAL: This is a well-nourished, well-developed patient, in no apparent distress. CARDIOVASCULAR: Regular rate and rhythm RESPIRATORY: Clear to auscultation. Breath sounds equal bilaterally. GASTROINTESTINAL: Abdomen soft, non-tender, nondistended. Normal active bowel sounds GENITOURINARY: Mark draining MUSCULOSKELETAL: Extremities without clubbing, cyanosis, or edema. NEURO: Alert & Oriented x4 to person, place, time, situation. Moves all ext x4 A/P Problem List: (1) Fever ICD Codes: R50.9 - Fever, unspecified Plan: Fever Patient underwent prostate biopsy by Dr. Garcia 2 days ago then presented to the ER complaining of inability to urinate. Patient also c/o severe suprapubic abdominal discomfort as well as fever. Pain is severe, constant, worse with movement and palpation, described as pressure. Denies N/V, cough, congestion, SOB or chest pain. - Mark was placed in ER with 800ml returned. Abdominal pain resolved after mark place. - T max 102.7 - UA reviewed 1000 glucose, moderate occult blood, 59 RBCs, 3 WBCs, not suggestive of UTI. - Patient started on Rocephin x 1 in the ER due to concern for possible UTI - Zosyn started - CBC: WBC 13.2, hemoglobin 15.9, hematocrit 47.6, platelets 195, neutrophils 88.4%. - Lactic acid is 2.6 -> 1.4 - Chest x-ray read as the lungs are clear. - CT abdomen pelvis: Nonspecific bilateral inguinal lymph nodes. Prostatic enlargement. Mark catheter in place. - Blood cultures x 2 obtained 1/2 cultures growing gram neg rods -> continue Zosyn - Influenza negative Urinary retention - Mark was placed in ER with 800ml returned. Abdominal pain resolved after mark place. - BUN 20, Creatinine 1.30, estimated GFR 66 - start Flomax - consult Dr. Garcia HTN (hypertension) Continue home Nifedipine 60 mg daily and lisinopril 20 mg PO BID monitor BP BP was elevated when patient arrived to the ER 182/100 will add Vasotec and clonidine as needed Hyperlipemia hold statin due to elevated liver enzymes total Bilirubin 3.8, AST 101, ALT 117, alkaline phosphatase 156 Diabetes Hold oral diabetic medication Diabetic diet accu checks ACHS with SSI coverage 07/09 Glucose this AM 79, decrase SSI to low dose SSI coverage Patient not on long acting insulin continue accu checks ACHS Elevated LFTs hold statin due to elevated liver enzymes total Bilirubin 3.8, AST 101, ALT 117, alkaline phosphatase 156 (on admission - > (07/09) total Bilirubin 2.7, AST 55, ALT 72, alkaline phosphatase 148 CT abdomen/pelvic conclusion: nonspecific bilateral inguinal lymph nodes. Prostatic enlargement and mark catheter in place MRI abd/pelvic reviewed: The intrahepatic and extrahepatic biliary tree is normal (2) Urinary retention ICD Codes: R33.9 - Retention of urine, unspecified Status: Acute Plan: (3) HTN (hypertension) ICD Codes: I10 - Essential (primary) hypertension (4) Hyperlipemia ICD Codes: E78.5 - Hyperlipidemia, unspecified (5) Diabetes ICD Codes: E11.9 - Type 2 diabetes mellitus without complications (6) Elevated LFTs ICD Codes: R79.89 - Other specified abnormal findings of blood chemistry Assessment and Plan Patient examined. Assessment and plan formulated with Griselda Fernandez PA-C. I agree with the above. s/p prostate bx. bph. urine retention. bacteremia. gnr..presumed from urine. mrcp biliary tree nonobstructed. Griselda Fernandez Jul 09, 2017 09:46 Miguelito Coyle MD Jul 09, 2017 13:49
[2017-07-09 12:00] VITALS: BP 158/87; PULSE 92; RESP 18; TEMP 97.2; O2SAT 96
--- NOTE | 2017-07-09 14:12 | PD.CONS ---
HPI Service Urology Consult Requested By COLTON Salinas Reason for Consult Urosepsis Primary Care Physician Weston León MD, PhD Diagnosis: (1) Fever ICD Code: R50.9 - Fever, unspecified (2) Urinary retention ICD Code: R33.9 - Retention of urine, unspecified (3) HTN (hypertension) ICD Code: I10 - Essential (primary) hypertension (4) Hyperlipemia ICD Code: E78.5 - Hyperlipidemia, unspecified (5) Diabetes ICD Code: E11.9 - Type 2 diabetes mellitus without complications (6) Elevated LFTs ICD Code: R79.89 - Other specified abnormal findings of blood chemistry History of Present Illness Pt is a 72-year-old male with history of high cholesterol, diabetes and enlarged prostate. He is well known to our practice. Patient underwent prostate biopsy by Dr. Garcia last week ago 07/05/17 and presented to the ER on 07/08/17 with complains of inability to urinate x 2 days, general weakness. States on a first day after biopsy had incontinence issues, possibly overflow. Patient also had severe suprapubic abdominal discomfort as well as fever of 102.7. he states that had those symptoms x 2 days after biopsy. Mark was placed in ER with 800ml returned. Abdominal pain resolved after mark place. WBC 13.2 on admission, CT abdomen/pelvic c/w: nonspecific bilateral inguinal lymph nodes. Prostatic enlargement UC is pending, Blood culture is growing Gm- rods He was seen today at the bedside, no acute events overnight. Just finished his lunch. States that pain is much better, White count improved, no fever. Cr is improved. Mark is in place draining dark yellow color urine. It was discussed with pt that infection is one of the possible complications after biopsy and told him once he felt problems to void after procedure he should not wait and needed to call us or go to ER right away, this would prevent more serious septic condition. It all was printed for him on his d/c papers after biopsy. Review of Systems Except as stated in HPI: all other systems reviewed are Neg Past Family Social History Past Medical History hypertension,hyperlipidemia,diabetes Past Surgical History cholecystectomy. Allergies: Coded Allergies: acetaminophen (Verified Allergy, Unknown, 07/08/17) "my dr said not to take it because of my fatty liver" Family History cannot tell Social History denies ETOH use or tobacco use Physical Exam Vital Signs Date Time Temp Pulse Resp B/P (MAP) Pulse Ox O2 Delivery O2 Flow Rate FiO2 07/09/17 12:00 97.2 92 18 158/87 (110) 96 07/09/17 08:00 98.6 83 18 134/75 (94) 93 07/09/17 04:00 98.9 94 21 137/71 (93) 94 07/09/17 00:00 99.1 76 20 139/77 (97) 92 07/08/17 20:00 99.4 102 21 136/77 (96) 92 07/08/17 19:57 100 07/08/17 16:00 101.1 93 22 151/74 (99) 93 Physical Exam GENERAL: This is a well-nourished, well-developed patient, in no apparent distress. HEAD: Atraumatic. Normocephalic. CARDIOVASCULAR: Regular rate and rhythm without murmurs. RESPIRATORY: Clear to auscultation. Breath sounds equal bilaterally. No wheezes , rales, or rhonchi. GASTROINTESTINAL: Abdomen soft, non-tender, nondistended. GENITOURINARY: mark is in place draining dark yellow urine MUSCULOSKELETAL: Extremities without clubbing, cyanosis, or edema. NEUROLOGICAL: Awake and alert. Lab results reviewed: Yes Laboratory Tests Test 07/09/17 04:07 White Blood Count 7.1 Red Blood Count 4.85 Hemoglobin 14.3 Hematocrit 42.8 Mean Corpuscular Volume 88.2 Mean Corpuscular Hemoglobin 29.4 Mean Corpuscular Hemoglobin Concent 33.3 Red Cell Distribution Width 14.1 Platelet Count 173 Mean Platelet Volume 8.6 Neutrophils (%) (Auto) 75.9 Lymphocytes (%) (Auto) 11.5 Monocytes (%) (Auto) 11.4 Eosinophils (%) (Auto) 0.6 Basophils (%) (Auto) 0.6 Neutrophils # (Auto) 5.4 Lymphocytes # (Auto) 0.8 Monocytes # (Auto) 0.8 Eosinophils # (Auto) 0.0 Basophils # (Auto) 0.0 CBC Comment DIFF FINAL Differential Comment Blood Urea Nitrogen 19 Creatinine 1.07 Random Glucose 113 Total Protein 6.4 Albumin 2.5 Calcium Level 8.9 Alkaline Phosphatase 148 Aspartate Amino Transf (AST/SGOT) 55 Alanine Aminotransferase (ALT/SGPT) 72 Total Bilirubin 2.7 Sodium Level 138 Potassium Level 3.9 Chloride Level 103 Carbon Dioxide Level 24.9 Anion Gap 10 Estimat Glomerular Filtration Rate 83 Date/Time Source Procedure Growth Status 07/07/17 23:35 Blood Peripheral Aerobic Blood Culture - Preliminary NO GROWTH IN 1 DAY Resulted 07/07/17 23:35 Anaerobic Blood Culture - Preliminary Gram Negative Gabo Resulted 07/07/17 23:30 Nasal Washing Influenza Types A,B Antigen (GUIDO) - Final NEGATIVE FOR FLU A AND B ANTIGEN.... Complete 07/07/17 23:15 Urine Catheterized Urine Urine Culture Pending Received Result Diagram: 07/09/17 0407 07/09/177 Personally reviewed images: Yes Imaging Last Impressions Cholangiopancreatography MRI 07/08/17 0000 Signed Impressions: Service Date/Time: Saturday, July 08, 2017 16:10 - CONCLUSION: 1. The intrahepatic and extrahepatic biliary tree is normal. 2. The liver is unremarkable. Alfonso Dwason MD Chest X-Ray 07/07/17 2311 Signed Impressions: Service Date/Time: Friday, July 07, 2017 23:22 - CONCLUSION: The lungs are clear. Baron Fonseca MD Abdomen/Pelvis CT 07/07/17 0000 Signed Impressions: Service Date/Time: Saturday, July 08, 2017 01:00 - CONCLUSION: 1. Nonspecific bilateral inguinal lymph nodes. 2. Prostatic enlargement. Mark catheter in place. Baron Fonseca MD Assessment and Plan Assessment and Plan 72y.o. M admitted for urosepsis post recent Prostate biopsy. Improving - Continue care as per primary team - IV fluids, antbx and flomax - No acute intervention needed. - Keep mark catheter in, he may need to be d/c home with it and come to our clinic for voiding trial - Adjust antibiotics based on C&S when its ready. - When stable and afebrile x 24-48hrs can be d/c home on PO antbx x 2 weeks Follow up with Dr Garcia as an outpt after discharge Discussed Condition With Discussed with Dr Radha MARQUIS attending who agrees with this plan Moises Holguin Jul 09, 2017 14:12
[2017-07-09] MEDS: SODIUM CHLOR 0.9% 1000 ML INJ 1,000 ML IV SCH (15:57)
[2017-07-09 16:00] VITALS: BP 152/79; PULSE 90; RESP 16; TEMP 98.9; O2SAT 92
[2017-07-09] MEDS: MAGNESIUM HYDROXIDE SUSP 30 ML CUP PO PRN (19:26)
[2017-07-09 20:00] VITALS: BP 144/79; PULSE 99; RESP 18; TEMP 98.8; O2SAT 94
[2017-07-10] VITALS: BP_SYST 129; BP_SYST 143; BP_DIAS 62; BP_DIAS 74; PULSE 84; RESP 17; RESP 18; TEMP 98.6; O2SAT 92; O2SAT 96
[2017-07-10] MEDS: PIPERACIL-TAZO 3.375 GM PREMIX 50 ML IV SCH ×3 (02:30→13:06)
[2017-07-10 04:00] VITALS: BP 125/62; PULSE 80; RESP 17; TEMP 97.9; O2SAT 95
[2017-07-10] MEDS: INSULIN ASPART SUPPLEMENTAL SCALE SQ SCH ×4 (07:57→21:38)
[2017-07-10 08:00] VITALS: BP 143/77; PULSE 77; RESP 17; TEMP 97.6; O2SAT 91
[2017-07-10] MEDS: NIFEdipine 60 MG SUSTAINED RELEASE TAB PO SCH (08:55)
[2017-07-10] MEDS: LISINOPRIL 20 MG TAB PO SCH ×2 (08:55→19:57)
[2017-07-10] MEDS: TAMSULOSIN HCL 0.4 MG CAP PO SCH (08:55)
[2017-07-10] MEDS: SODIUM CHLORIDE 0.9% FLUSH 10 ML FLUSH IV FLUSH SCH ×2 (08:56→19:57)
[2017-07-10] MEDS: ASPIRIN 81 MG CHEW TAB PO SCH (08:56)
--- NOTE | 2017-07-10 11:07 | HHI.PR ---
Subjective Remarks Patient resting in bed offers no new complaints/concerns Objective Vitals Vital Signs Date Time Temp Pulse Resp B/P (MAP) Pulse Ox O2 Delivery O2 Flow Rate FiO2 07/10/17 08:00 97.6 77 17 143/77 (99) 91 07/10/17 04:00 97.9 80 17 125/62 (83) 95 07/10/17 00:00 98.6 84 18 129/62 (84) 92 07/09/17 20:00 98.8 99 18 144/79 (100) 94 07/09/17 16:00 98.9 90 16 152/79 (103) 92 07/09/17 12:00 97.2 92 18 158/87 (110) 96 07/10/17 07/10/17 07/11/17 14:59 22:59 06:59 Intake Total 40 ml Output Total 1250 ml Balance -1210 ml IV Total 40 ml Output Urine Total 1250 ml # Bowel Movements 1 Result Diagram: 07/09/17 0407 07/09/17 0407 Other Results Laboratory Tests Test 07/07/17 23:15 07/07/17 23:30 07/08/17 02:10 07/09/17 04:07 Urine Color YELLOW Urine Turbidity CLEAR Urine pH 7.0 Urine Specific [place] 1.023 Urine Protein TRACE mg/dL Urine Glucose (UA) 1000 mg/dL Urine Ketones NEG mg/dL Urine Occult Blood MOD Urine Nitrite NEG Urine Bilirubin NEG Urine Urobilinogen LESS THAN 2.0 MG/DL Urine Leukocyte Esterase NEG Urine RBC 59 /hpf Urine WBC 3 /hpf Microscopic Urinalysis Comment CATH-CULT NOT IND White Blood Count 13.2 TH/MM3 7.1 TH/MM3 Red Blood Count 5.37 MIL/MM3 4.85 MIL/MM3 Hemoglobin 15.9 GM/DL 14.3 GM/DL Hematocrit 47.6 % 42.8 % Mean Corpuscular Volume 88.6 FL 88.2 FL Mean Corpuscular Hemoglobin 29.7 PG 29.4 PG Mean Corpuscular Hemoglobin Concent 33.5 % 33.3 % Red Cell Distribution Width 13.8 % 14.1 % Platelet Count 195 TH/MM3 173 TH/MM3 Mean Platelet Volume 9.3 FL 8.6 FL Neutrophils (%) (Auto) 88.4 % 75.9 % Lymphocytes (%) (Auto) 5.2 % 11.5 % Monocytes (%) (Auto) 6.2 % 11.4 % Eosinophils (%) (Auto) 0.0 % 0.6 % Basophils (%) (Auto) 0.2 % 0.6 % Neutrophils # (Auto) 11.7 TH/MM3 5.4 TH/MM3 Lymphocytes # (Auto) 0.7 TH/MM3 0.8 TH/MM3 Monocytes # (Auto) 0.8 TH/MM3 0.8 TH/MM3 Eosinophils # (Auto) 0.0 TH/MM3 0.0 TH/MM3 Basophils # (Auto) 0.0 TH/MM3 0.0 TH/MM3 CBC Comment DIFF FINAL DIFF FINAL Differential Comment Prothrombin Time 15.2 SEC Prothromb Time International Ratio 1.5 RATIO Activated Partial Thromboplast Time 31.9 SEC Blood Urea Nitrogen 20 MG/DL 19 MG/DL Creatinine 1.30 MG/DL 1.07 MG/DL Random Glucose 194 MG/DL 113 MG/DL Total Protein 7.6 GM/DL 6.4 GM/DL Albumin 3.5 GM/DL 2.5 GM/DL Calcium Level 9.1 MG/DL 8.9 MG/DL Alkaline Phosphatase 156 U/L 148 U/L Aspartate Amino Transf (AST/SGOT) 101 U/L 55 U/L Alanine Aminotransferase (ALT/SGPT) 117 U/L 72 U/L Total Bilirubin 3.8 MG/DL 2.7 MG/DL Sodium Level 134 MEQ/L 138 MEQ/L Potassium Level 4.3 MEQ/L 3.9 MEQ/L Chloride Level 100 MEQ/L 103 MEQ/L Carbon Dioxide Level 26.9 MEQ/L 24.9 MEQ/L Anion Gap 7 MEQ/L 10 MEQ/L Estimat Glomerular Filtration Rate 66 ML/MIN 83 ML/MIN Lactic Acid Level 2.6 mmol/L 1.4 mmol/L Imaging Last Impressions Chest X-Ray 07/07/17 2311 Signed Impressions: Service Date/Time: Friday, July 07, 2017 23:22 - CONCLUSION: The lungs are clear. Baron Fonseca MD Abdomen/Pelvis CT 07/07/17 0000 Signed Impressions: Service Date/Time: Saturday, July 08, 2017 01:00 - CONCLUSION: 1. Nonspecific bilateral inguinal lymph nodes. 2. Prostatic enlargement. Mark catheter in place. Baron Fonseca MD Objective Remarks GENERAL: This is a well-nourished, well-developed patient, in no apparent distress. CARDIOVASCULAR: Regular rate and rhythm RESPIRATORY: Clear to auscultation. Breath sounds equal bilaterally. GASTROINTESTINAL: Abdomen soft, non-tender, nondistended. Normal active bowel sounds GENITOURINARY: Mark draining MUSCULOSKELETAL: Extremities without clubbing, cyanosis, or edema. NEURO: Alert & Oriented x4 to person, place, time, situation. Moves all ext x4 A/P Problem List: (1) Fever ICD Codes: R50.9 - Fever, unspecified Plan: Fever Patient underwent prostate biopsy by Dr. Garcia 2 days ago then presented to the ER complaining of inability to urinate. Patient also c/o severe suprapubic abdominal discomfort as well as fever. Pain is severe, constant, worse with movement and palpation, described as pressure. Denies N/V, cough, congestion, SOB or chest pain. - Mark was placed in ER with 800ml returned. Abdominal pain resolved after mark place. - T max 102.7 - UA reviewed 1000 glucose, moderate occult blood, 59 RBCs, 3 WBCs, not suggestive of UTI. - Patient started on Rocephin x 1 in the ER due to concern for possible UTI - Zosyn started - CBC: WBC 13.2, hemoglobin 15.9, hematocrit 47.6, platelets 195, neutrophils 88.4%. - Lactic acid is 2.6 -> 1.4 - Chest x-ray read as the lungs are clear. - CT abdomen pelvis: Nonspecific bilateral inguinal lymph nodes. Prostatic enlargement. Mark catheter in place. - Blood cultures x 2 obtained 2/2 bottles growing E coli DC Zosyn start Levaquin - (/) Repeat blood cultures (pending) - Influenza negative Urinary retention - Mark was placed in ER with 800ml returned. Abdominal pain resolved after mark place. - BUN 20, Creatinine 1.30, estimated GFR 66 - continue Flomax - consult Urology, patient known to Dr. Garcia - Urology recommending leave mark in place then have patient follow up in office for voiding trail - Patient adamantly wants to try voiding trail here. Patient understands risks and still wants mark removed. Will try voiding trail if patient unable to void or post void residual > 200ml will need to replace mark and DC patient with mark HTN (hypertension) Continue home Nifedipine 60 mg daily and lisinopril 20 mg PO BID monitor BP BP was elevated when patient arrived to the ER 182/100 will add Vasotec and clonidine as needed Hyperlipemia hold statin due to elevated liver enzymes total Bilirubin 3.8, AST 101, ALT 117, alkaline phosphatase 156 Diabetes Hold oral diabetic medication Diabetic diet accu checks ACHS with SSI coverage Elevated LFTs hold statin due to elevated liver enzymes total Bilirubin 3.8, AST 101, ALT 117, alkaline phosphatase 156 (on admission - > (3/5) total Bilirubin 2.7, AST 55, ALT 72, alkaline phosphatase 148 CT abdomen/pelvic conclusion: nonspecific bilateral inguinal lymph nodes. Prostatic enlargement and mark catheter in place MRI abd/pelvic reviewed: The intrahepatic and extrahepatic biliary tree is normal (2) Urinary retention ICD Codes: R33.9 - Retention of urine, unspecified Status: Acute Plan: (3) HTN (hypertension) ICD Codes: I10 - Essential (primary) hypertension (4) Hyperlipemia ICD Codes: E78.5 - Hyperlipidemia, unspecified (5) Diabetes ICD Codes: E11.9 - Type 2 diabetes mellitus without complications (6) Elevated LFTs ICD Codes: R79.89 - Other specified abnormal findings of blood chemistry Assessment and Plan Patient examined. Assessment and plan formulated with Griselda Fernandez PA-C. I agree with the above. s/p prostate bx. bph. urine retention. ecoli uti/bacteremia.. on flomax. d/c mark . replace if needed with leg bag discussed with Urology. plan d/chome tomorrow on po abx. mrcp biliary tree nonobstructed. Griselda Fernandez Jul 10, 2017 11:07 Miguelito Coyle MD Jul 10, 2017 16:55
[2017-07-10 12:00] VITALS: BP 174/87; PULSE 78; RESP 18; TEMP 98.5; O2SAT 96
--- NOTE | 2017-07-10 13:47 | HHI.PR ---
Subjective Patient symptoms today feels better. Denies fevers, chills, nausea. Wants mark catheter out. Objective Vital Signs Vital Signs Date Time Temp Pulse Resp B/P (MAP) Pulse Ox O2 Delivery O2 Flow Rate FiO2 07/10/17 12:00 98.5 78 18 174/87 (116) 96 07/10/17 08:00 97.6 77 17 143/77 (99) 91 07/10/17 04:00 97.9 80 17 125/62 (83) 95 07/10/17 00:00 98.6 84 18 129/62 (84) 92 07/09/17 20:00 98.8 99 18 144/79 (100) 94 07/09/17 16:00 98.9 90 16 152/79 (103) 92 Intake & Output 07/10/17 07/10/17 07:00 19:00 Intake Total 240 ml 80 ml Output Total 2000 ml 1250 ml Balance -1760 ml -1170 ml Intake Oral 240 ml IV Total 80 ml Output Urine Total 2000 ml 1250 ml # Bowel Movements 1 Result Diagram: 07/09/177 07/09/177 Objective Remarks NAD. A/O x 3 abd soft urine yellow, clear Medications and IVs Current Medications Medications (Trade) Dose Ordered Sig/Rod Route Start Time Stop Time Status Last Admin (NS Flush) 2 ml UNSCH PRN IV FLUSH 07/08/17 02:00 (NS Flush) 2 ml BID IV FLUSH 07/08/17 09:00 07/09/17 21:13 (Zofran Inj) 4 mg Q6H PRN IVP 07/08/17 02:00 (Narcan Inj) 0.4 mg UNSCH PRN IV PUSH 07/08/17 02:00 (Milk Of Magnesia Liq) 30 ml Q12H PRN PO 07/08/17 02:00 07/09/17 19:26 (Aspirin Chew) 81 mg DAILY PO 07/08/17 09:00 07/10/17 08:56 (Prinivil) 20 mg BID PO 07/08/17 09:00 07/10/17 08:55 (Procardia Xl) 60 mg DAILY PO 07/08/17 09:00 07/10/17 08:55 (Pravachol) 40 mg HS PO 07/08/17 21:00 Future Hold (Vasotec Inj) 1.25 mg Q6H PRN IV 07/08/17 02:00 (Catapres) 0.1 mg Q6H PRN PO 07/08/17 14:00 (Flomax) 0.4 mg DAILY PO 07/09/17 09:00 07/10/17 08:55 (Motrin) 600 mg Q8HR PRN PO 07/08/17 17:45 07/09/17 19:27 (NovoLOG SUPPLEMENTAL SCALE) 1 ACHS SLIDING SCALE SQ 07/09/17 12:00 07/10/17 13:03 (Colace) 100 mg BID PO 07/10/17 21:00 (Levaquin) 500 mg DAILY PO 07/10/17 18:00 UNV Assessment and Plan Assessment and Plan 72y.o. M admitted for urosepsis post recent Prostate biopsy. -antibiotics x 2 weeks -Home on Flomax. Void trial tomorrow A.M. -F/U as scheduled to discuss biopsy results. Eric Garcia MD Jul 10, 2017 13:47
[2017-07-10 16:00] VITALS: BP 160/79; PULSE 86; RESP 17; TEMP 97; O2SAT 94
[2017-07-10] MEDS ORDERED: LEVOFLOXACIN 500 MG TAB PO SCH (18:00)
[2017-07-10] MEDS: DOCUSATE SODIUM 100 MG CAP PO SCH (19:57)
[2017-07-10 20:00] VITALS: BP 168/94; PULSE 98; RESP 17; TEMP 98; O2SAT 96
[2017-07-11] VITALS (7 sets, daily range): BP systolic 114–200; BP diastolic 73–108; PULSE 84–113; RESP 17–18; TEMP 97.2–99.4; O2SAT 93–96
[2017-07-11] MEDS: TAMSULOSIN HCL 0.4 MG CAP PO SCH (09:07)
[2017-07-11] MEDS: DOCUSATE SODIUM 100 MG CAP PO SCH ×2 (09:07→20:45)
[2017-07-11] MEDS: NIFEdipine 60 MG SUSTAINED RELEASE TAB PO SCH (09:07)
[2017-07-11] MEDS: ASPIRIN 81 MG CHEW TAB PO SCH (09:07)
[2017-07-11] MEDS: LISINOPRIL 20 MG TAB PO SCH ×2 (09:07→20:42)
[2017-07-11] MEDS: SODIUM CHLORIDE 0.9% FLUSH 10 ML FLUSH IV FLUSH SCH ×2 (09:08→20:45)
[2017-07-11] MEDS: INSULIN ASPART SUPPLEMENTAL SCALE SQ SCH ×4 (09:08→20:53)
--- NOTE | 2017-07-11 09:47 | HHI.PR ---
Subjective Remarks Pt having some difficulty urinating today and is having hematuria which is reportedly new today Pt is afebrile since 07/08/17 Bladder scan at 0600 with 66mL of residual at that time Objective Vitals Vital Signs Date Time Temp Pulse Resp B/P (MAP) Pulse Ox O2 Delivery O2 Flow Rate FiO2 07/11/17 08:00 98.4 89 17 183/100 (127) 96 07/11/17 00:00 98.7 93 17 138/73 (94) 95 07/11/17 00:00 84 07/10/17 20:00 98.0 98 17 168/94 (118) 96 07/10/17 16:00 97.0 86 17 160/79 (106) 94 07/10/17 12:00 98.5 78 18 174/87 (116) 96 07/11/17 07/11/17 07/12/17 15:00 23:00 07:00 Output Total 100 ml Balance -100 ml Output Urine Total 100 ml # Voids 1 Result Diagram: 07/09/17 0407 07/09/17 0407 Imaging Last Impressions Chest X-Ray 07/07/17 2311 Signed Impressions: Service Date/Time: Friday, July 07, 2017 23:22 - CONCLUSION: The lungs are clear. Baron Fonseca MD Abdomen/Pelvis CT 07/07/17 0000 Signed Impressions: Service Date/Time: Saturday, July 08, 2017 01:00 - CONCLUSION: 1. Nonspecific bilateral inguinal lymph nodes. 2. Prostatic enlargement. Mark catheter in place. Baron Fonseca MD Objective Remarks GENERAL: This is a well-nourished, well-developed patient, in no apparent distress. CARDIO: Regular rate and rhythm RESP: CTA bilaterally. ABD: +BS, soft, non-tender, nondistended. : EXT: No edema. A/P Problem List: (1) Fever ICD Codes: R50.9 - Fever, unspecified Plan: Fever - Patient underwent prostate biopsy by Dr. Garcia 2 days prior to admission, then presented to the ER complaining of inability to urinate. - Patient also c/o severe suprapubic abdominal discomfort as well as fever. - Mark was placed in ER with 800ml returned. Abdominal pain resolved after Mark place. - Pt had a noted fever of 102.7 at admission. - UA (07/07) reviewed 1000 glucose, moderate occult blood, 59 RBCs, 3 WBCs, not suggestive of UTI. - Patient given a dose of Rocephin x 1 in the ER due to concern for possible UTI - Zosyn started at admission - CBC (07/07): WBC 13.2, hemoglobin 15.9, hematocrit 47.6, platelets 195, neutrophils 88.4%. - Lactic acid is 2.6 -> 1.4 - Chest x-ray read as the lungs are clear. - CT abdomen/pelvis (07/08/17) --> Nonspecific bilateral inguinal lymph nodes. Prostatic enlargement. Mark catheter in place. - Blood cultures (07/07) --> / bottles growing E coli. Zosyn was stopped on and pt started on Levaquin on 07/10 - Repeat blood cultures (07/10)--> pending - Influenza negative Urinary retention - Mark was placed in ER with 800ml returned. Abdominal pain resolved after Mark place. - Labs on 07/07 with BUN 20, Creatinine 1.30, estimated GFR 66 - continue Flomax - Urology following, patient known to Dr. Garcia - Patient adamantly wanted to try voiding trail here. Patient understands risks and still wants Mark removed. - Mark removed on 07/10 and pt having difficulty voiding and with noted hematuria on 07/11 - Cont. Bladder scans for post-void residuals and replace Mark if greater than 400mL HTN (hypertension) - Continue home Nifedipine 60 mg daily and lisinopril 20 mg PO BID - Monitor BP - BP has been elevated periodically - Vasotec and clonidine as needed Hyperlipemia - Hold statin due to elevated liver enzymes Diabetes - Hold oral diabetic medication - Diabetic diet - Accu checks ACHS with SSI coverage Elevated LFTs - Statin held due to elevated liver enzymes - Labs on 07/07 with total Bilirubin 3.8, AST 101, ALT 117, alkaline phosphatase 156 - Repeat labs on 07/09 are improving, with TBili 2.7, AST 55, ALT 72, AlkPhos 148 - CT abdomen/pelvis (07/08)--> nonspecific bilateral inguinal lymph nodes. Prostatic enlargement and Mark catheter in place - MRCP (07/08) --> The intrahepatic and extrahepatic biliary tree is normal, liver is unremarkable - Repeat labs in AM (2) Urinary retention ICD Codes: R33.9 - Retention of urine, unspecified Status: Acute Plan: (3) HTN (hypertension) ICD Codes: I10 - Essential (primary) hypertension (4) Hyperlipemia ICD Codes: E78.5 - Hyperlipidemia, unspecified (5) Diabetes ICD Codes: E11.9 - Type 2 diabetes mellitus without complications (6) Elevated LFTs ICD Codes: R79.89 - Other specified abnormal findings of blood chemistry Assessment and Plan Patient examined. Assessment and plan formulated with Michelle Dallas PA-C. I agree with the above. s/p prostate bx. bph. urine retention. ecoli uti/bacteremia.. on flomax. mark removed and failing voiding trial. more hematuria and clots nursing unable to get mark back in and call to Urologist made. pt in severe pain and spasms..morphine/oxybutynin ordered discussed with family at bedside. mrcp biliary tree nonobstructed. Ne Dallas Jul 11, 2017 09:47 Miguelito Coyle MD Jul 11, 2017 12:15
[2017-07-11] MEDS ORDERED: MORPHINE SULFATE 2 MG/ML INJ IV PUSH STA (11:29)
[2017-07-11] MEDS ORDERED: OXYBUTYNIN CHLORIDE 5 MG TAB PO STA (11:30)
[2017-07-11] MEDS ORDERED: MORPHINE SULFATE 2 MG/ML INJ IV PUSH PRN (12:00)
--- NOTE | 2017-07-11 12:40 | HHI.PR ---
Subjective Patient symptoms today Pt was seen today at bed side. no f/c/n/v. It was planned to discharge him today but when mark catheter was removed he started bleeding again with clots and developed clot retention. Became very uncomfortable, had strong s/pubic pain and spasms. Procedure: Due to pt's current condition a morphine was given for pain and 16fr mark catheter was placed with minimal return of bloody urine. Manual irrigation started with 60cc syringe, about 30-40cc of clots removed and 500- 600cc of urine drained, he became more comfortable but still with bladder spasms. Due to small mark caliber and poor drainage from it due to having more clots in the bladder decision was made to place 22Fr [address] catheter and start CBI, which was done successfully. Objective Vital Signs Vital Signs Date Time Temp Pulse Resp B/P (MAP) Pulse Ox O2 Delivery O2 Flow Rate FiO2 07/11/17 08:00 98.4 89 17 183/100 (127) 96 07/11/17 00:00 98.7 93 17 138/73 (94) 95 07/11/17 00:00 84 07/10/17 20:00 98.0 98 17 168/94 (118) 96 07/10/17 16:00 97.0 86 17 160/79 (106) 94 Intake & Output 07/11/17 07/11/17 07:00 19:00 Intake Total 240 ml Output Total 250 ml 100 ml Balance -10 ml -100 ml Intake Oral 240 ml Output Urine Total 250 ml 100 ml Bladder Scan Volume Amount 300 ml # Voids 1 1 Result Diagram: 07/09/17 0407 07/09/17 0407 Objective Remarks NAD. A/O x 3 RRR Normal breath sounds Bladder distended, clots and blood visualized at meatus Medications and IVs Current Medications Medications (Trade) Dose Ordered Sig/Rod Route Start Time Stop Time Status Last Admin (NS Flush) 2 ml UNSCH PRN IV FLUSH 07/08/17 02:00 (NS Flush) 2 ml BID IV FLUSH 07/08/17 09:00 07/11/17 09:08 (Zofran Inj) 4 mg Q6H PRN IVP 07/08/17 02:00 (Narcan Inj) 0.4 mg UNSCH PRN IV PUSH 07/08/17 02:00 (Milk Of Magncj Liq) 30 ml Q12H PRN PO 07/08/17 02:00 07/09/17 19:26 (Prinivil) 20 mg BID PO 07/08/17 09:00 07/11/17 09:07 (Procardia Xl) 60 mg DAILY PO 07/08/17 09:00 07/11/17 09:07 (Pravachol) 40 mg HS PO 07/08/17 21:00 Future Hold (Vasotec Inj) 1.25 mg Q6H PRN IV 07/08/17 02:00 (Catapres) 0.1 mg Q6H PRN PO 07/08/17 14:00 (Flomax) 0.4 mg DAILY PO 07/09/17 09:00 07/11/17 09:07 (Motrin) 600 mg Q8HR PRN PO 07/08/17 17:45 07/09/17 19:27 (NovoLOG SUPPLEMENTAL SCALE) 1 ACHS SLIDING SCALE SQ 07/09/17 12:00 07/11/17 09:08 (Colace) 100 mg BID PO 07/10/17 21:00 07/11/17 09:07 (Levaquin) 500 mg Q24H PO 07/10/17 18:00 07/10/17 18:00 (Morphine Inj) 2 mg Q4H PRN IV PUSH 07/11/17 12:00 (Ditropan) 5 mg Q8H PO 07/11/17 20:00 Assessment and Plan Assessment and Plan 72y.o. M admitted for urosepsis post recent Prostate biopsy - Do not d/c pt today. Continue management as per primary team. Continue flomax and oxybutynin - Keep pt overnight on CBI, if urine will clear up, can be d/c home tomorrow with mark catheter and f/u as outpt at our clinic for voiding trial. - D/c with antibiotics x 2 weeks, flomax and oxybutynin - F/U as scheduled with Dr Garcia to discuss biopsy results. Moises Holguin Jul 11, 2017 12:40
--- NOTE | 2017-07-11 12:54 | HHI.PR ---
Subjective Patient symptoms today See our full note from today Objective Vital Signs Vital Signs Date Time Temp Pulse Resp B/P (MAP) Pulse Ox O2 Delivery O2 Flow Rate FiO2 07/11/17 08:00 98.4 89 17 183/100 (127) 96 07/11/17 00:00 98.7 93 17 138/73 (94) 95 07/11/17 00:00 84 07/10/17 20:00 98.0 98 17 168/94 (118) 96 07/10/17 16:00 97.0 86 17 160/79 (106) 94 Intake & Output 07/11/17 07/11/17 07:00 19:00 Intake Total 240 ml Output Total 250 ml 100 ml Balance -10 ml -100 ml Intake Oral 240 ml Output Urine Total 250 ml 100 ml Bladder Scan Volume Amount 300 ml # Voids 1 1 Result Diagram: 07/09/1740607/09/17406 Objective Remarks NAD. A/O x 3 RRR Normal breath sounds Bladder distended, clots and blood visualized at meatus Has a ?? scrotal lump not attached to testicle Medications and IVs Current Medications Medications (Trade) Dose Ordered Sig/Rod Route Start Time Stop Time Status Last Admin (NS Flush) 2 ml UNSCH PRN IV FLUSH 07/08/17 02:00 (NS Flush) 2 ml BID IV FLUSH 07/08/17 09:00 07/11/17 09:08 (Zofran Inj) 4 mg Q6H PRN IVP 07/08/17 02:00 (Narcan Inj) 0.4 mg UNSCH PRN IV PUSH 07/08/17 02:00 (Milk Of Magnesia Liq) 30 ml Q12H PRN PO 07/08/17 02:00 07/09/17 19:26 (Prinivil) 20 mg BID PO 07/08/17 09:00 07/11/17 09:07 (Procardia Xl) 60 mg DAILY PO 07/08/17 09:00 07/11/17 09:07 (Pravachol) 40 mg HS PO 07/08/17 21:00 Future Hold (Vasotec Inj) 1.25 mg Q6H PRN IV 07/08/17 02:00 (Catapres) 0.1 mg Q6H PRN PO 07/08/17 14:00 (Flomax) 0.4 mg DAILY PO 07/09/17 09:00 07/11/17 09:07 (Motrin) 600 mg Q8HR PRN PO 07/08/17 17:45 07/09/17 19:27 (NovoLOG SUPPLEMENTAL SCALE) 1 ACHS SLIDING SCALE SQ 07/09/17 12:00 07/11/17 09:08 (Colace) 100 mg BID PO 07/10/17 21:00 07/11/17 09:07 (Levaquin) 500 mg Q24H PO 07/10/17 18:00 07/10/17 18:00 (Morphine Inj) 2 mg Q4H PRN IV PUSH 07/11/17 12:00 (Ditropan) 5 mg Q8H PO 07/11/17 20:00 Assessment and Plan Assessment and Plan 72y.o. M admitted for urosepsis post recent Prostate biopsy - Do not d/c pt today. Continue management as per primary team. Continue flomax and oxybutynin - Keep pt overnight on CBI, if urine will clear up, can be d/c home tomorrow with mark catheter and f/u as outpt at our clinic for voiding trial. - D/c with antibiotics x 2 weeks, flomax and oxybutynin - F/U as scheduled with Dr Garcia to discuss biopsy results. Pt also needs US scrotum to evaluate scrotal lump Moises Holguin Jul 11, 2017 12:54
--- NOTE | 2017-07-11 13:55 | RADRPT ---
EXAM DATE/TIME: 07/11/2017 13:18 [place] COMPARISON: No previous studies available for comparison. INDICATIONS : Painful, palpable mass in right scrotum. MEDICAL HISTORY : Hypertension. Arthritis. BPH. SURGICAL HISTORY : Cholecystectomy. ENCOUNTER: Initial ACUITY: 1 day PAIN SCORE: 3/10 LOCATION: Bilateral scrotum. MEASUREMENTS: RIGHT TESTICLE: 4.3 x 3.8 x 2.9 cm LEFT TESTICLE: 4.2 x 3.0 x 3.7 cm FINDINGS: RIGHT TESTICLE: Homogeneous echotexture without intra or extratesticular mass. Blood flow is symmetric and within no rmal limits. Small moderate amount of fluid surrounds the testicle. No varicocele is identified. The tail of the epididymis demonstrates nodular thickening and hyperemia. LEFT TESTICLE: Homogeneous echotexture without intra or extratesticular mass. Blood flow is symmetric and within no rmal limits. Small to moderate amount of fluid surrounds the testicle. No varicocele is identified. Epididymis is within normal limits. SCROTUM: Within normal limits. CONCLUSION: 1. Hyperemic nodular thickening of the right epididymal tail suggesting the presence of epididymitis. 2. Small bilateral hydroceles. 3. No evidence of testicular mass or torsion. Suman Vazquez MD on July 11, 2017 at 13:50 Board Certified Radiologist. This report was verified electronically.
[2017-07-11] MEDS ORDERED: ENALAPRILAT 1.25 MG/ML VIAL IV PRN (16:30)
[2017-07-11] MEDS ORDERED: cloNIDine HCL 0.2 MG TAB PO PRN (16:30)
[2017-07-11] MEDS ORDERED: HYDROmorphone HCL PF 1 MG/ML VIAL IV PUSH PRN (16:30)
[2017-07-11] MEDS ORDERED: HYDROmorphone HCL PF 1 MG/ML VIAL IV PUSH ONE (16:30)
[2017-07-11] MEDS: LEVOFLOXACIN 750 MG TAB PO SCH (17:21)
[2017-07-11] MEDS: HYDROmorphone HCL PF 2 MG/ML VIAL IV PRN (20:40)
[2017-07-11] MEDS: OXYBUTYNIN CHLORIDE 5 MG TAB PO SCH (20:42)
[2017-07-12] VITALS (7 sets, daily range): BP systolic 125–153; BP diastolic 70–90; PULSE 68–94; RESP 17–20; TEMP 96.6–98.6; O2SAT 93–96
[2017-07-12] MEDS: OXYBUTYNIN CHLORIDE 5 MG TAB PO SCH ×2 (05:25→11:56)
[2017-07-12] MEDS: HYDROmorphone HCL PF 2 MG/ML VIAL IV PRN ×3 (05:26→18:19)
[2017-07-12 06:21] LABS: AUTOMATED NEUTROPHIL # 6.1 TH/MM3 (1.8-7.7); BASOPHIL % 0.5 % (0.0-2.0); EOSINOPHIL # 0.1 TH/MM3 (0-0.4); EOSINOPHIL % 0.9 % (0.0-4.0); HEMATOCRIT 39.7 % (39.0-51.0); HEMOGLOBIN 13.2 GM/DL (13.0-17.0); LYMPH % 17.8 % (9.0-44.0); LYMPHOCYTE # 1.7 TH/MM3 (1.0-4.8); MEAN CELL VOLUME 87.6 FL (80.0-100.0); MEAN CORPUSCULAR HEMOGLOBIN 29.2 PG (27.0-34.0); MEAN CORPUSCULAR HGB CONC 33.4 % (32.0-36.0); MEAN PLATELET VOLUME 8.1 FL (7.0-11.0); MONO % 15.6 % (0.0-8.0); MONOCYTE # 1.5 TH/MM3 (0-0.9); NEUT % 65.2 % (16.0-70.0); PLATELET COUNT 263 TH/MM3 (150-450); RED BLOOD COUNT 4.53 MIL/MM3 (4.50-5.90); RED CELL DISTRIBUTION WIDTH 14.2 % (11.6-17.2); WHITE BLOOD COUNT 9.4 TH/MM3 (4.0-11.0)
[2017-07-12 06:44] LABS: ALBUMIN 2.4 GM/DL (3.4-5.0); ALT (GPT) 66 U/L (12-78); AST (GOT) 26 U/L (15-37); BLOOD UREA NITROGEN 20 MG/DL (7-18); CALCIUM 9.2 MG/DL (8.5-10.1); CHLORIDE 101 MEQ/L (98-107); CREATININE 1.09 MG/DL (0.60-1.30); GLOMERULAR FILTRATION RATE 81 ML/MIN (>89); GLUCOSE,RANDOM 202 MG/DL (74-106); SODIUM (NA) 136 MEQ/L (136-145)
[2017-07-12 06:46] LABS: ALKALINE PHOSPHATASE 240 U/L (45-117); TOTAL BILIRUBIN ADULT 0.7 MG/DL (0.2-1.0); TOTAL PROTEIN 6.8 GM/DL (6.4-8.2)
[2017-07-12] MEDS: INSULIN ASPART SUPPLEMENTAL SCALE SQ SCH ×4 (08:20→21:00)
[2017-07-12] MEDS: LEVOFLOXACIN 750 MG TAB PO SCH (08:21)
[2017-07-12] MEDS: TAMSULOSIN HCL 0.4 MG CAP PO SCH (08:21)
[2017-07-12] MEDS: LISINOPRIL 20 MG TAB PO SCH ×2 (08:21→21:55)
[2017-07-12] MEDS: NIFEdipine 60 MG SUSTAINED RELEASE TAB PO SCH (08:21)
[2017-07-12] MEDS: DOCUSATE SODIUM 100 MG CAP PO SCH ×2 (08:22→21:55)
[2017-07-12] MEDS: SODIUM CHLORIDE 0.9% FLUSH 10 ML FLUSH IV FLUSH SCH ×2 (08:22→22:08)
--- NOTE | 2017-07-12 11:27 | HHI.PR ---
Subjective Remarks Pt still with hematuria and has CBI running currently Abd pain is much improved today with the Mark replaced and CBI running. Afebrile BP more stable today with better pain control Objective Vitals Vital Signs Date Time Temp Pulse Resp B/P (MAP) Pulse Ox O2 Delivery O2 Flow Rate FiO2 07/12/17 08:00 97.5 68 18 125/70 (88) 94 07/12/17 04:00 96.6 81 20 135/72 (93) 93 07/12/17 02:01 94 07/12/17 00:00 97.8 80 20 153/90 (111) 96 07/11/17 20:00 97.2 93 18 157/89 (111) 95 07/11/17 17:55 88 114/73 (87) 07/11/17 16:00 99.4 113 17 200/108 (138) 93 07/11/17 13:23 171/91 (117) 07/11/17 13:00 190/90 (123) Result Diagram: 07/12/17 0440 07/12/17 0440 Other Results Laboratory Tests Test 07/12/17 04:40 White Blood Count 9.4 TH/MM3 Red Blood Count 4.53 MIL/MM3 Hemoglobin 13.2 GM/DL Hematocrit 39.7 % Mean Corpuscular Volume 87.6 FL Mean Corpuscular Hemoglobin 29.2 PG Mean Corpuscular Hemoglobin Concent 33.4 % Red Cell Distribution Width 14.2 % Platelet Count 263 TH/MM3 Mean Platelet Volume 8.1 FL Neutrophils (%) (Auto) 65.2 % Lymphocytes (%) (Auto) 17.8 % Monocytes (%) (Auto) 15.6 % Eosinophils (%) (Auto) 0.9 % Basophils (%) (Auto) 0.5 % Neutrophils # (Auto) 6.1 TH/MM3 Lymphocytes # (Auto) 1.7 TH/MM3 Monocytes # (Auto) 1.5 TH/MM3 Eosinophils # (Auto) 0.1 TH/MM3 Basophils # (Auto) 0.0 TH/MM3 CBC Comment DIFF FINAL Differential Comment Blood Urea Nitrogen 20 MG/DL Creatinine 1.09 MG/DL Random Glucose 202 MG/DL Total Protein 6.8 GM/DL Albumin 2.4 GM/DL Calcium Level 9.2 MG/DL Alkaline Phosphatase 240 U/L Aspartate Amino Transf (AST/SGOT) 26 U/L Alanine Aminotransferase (ALT/SGPT) 66 U/L Total Bilirubin 0.7 MG/DL Sodium Level 136 MEQ/L Potassium Level 4.2 MEQ/L Chloride Level 101 MEQ/L Carbon Dioxide Level 29.0 MEQ/L Anion Gap 6 MEQ/L Estimat Glomerular Filtration Rate 81 ML/MIN Imaging Last Impressions Chest X-Ray 07/07/17 2311 Signed Impressions: Service Date/Time: Friday, July 07, 2017 23:22 - CONCLUSION: The lungs are clear. Baron Fonseca MD Abdomen/Pelvis CT 07/07/17 0000 Signed Impressions: Service Date/Time: Saturday, July 08, 2017 01:00 - CONCLUSION: 1. Nonspecific bilateral inguinal lymph nodes. 2. Prostatic enlargement. Mark catheter in place. Baron Fonseca MD Objective Remarks GENERAL: This is a well-nourished, well-developed patient, in no apparent distress. CARDIO: Regular rate and rhythm RESP: CTA bilaterally. ABD: +BS, soft, non-tender, nondistended. : Mark cath in place with CBI running and hematuria and some clots noted EXT: No edema. A/P Problem List: (1) Fever ICD Codes: R50.9 - Fever, unspecified Plan: Fever - Patient underwent prostate biopsy by Dr. Garcia 2 days prior to admission, then presented to the ER complaining of inability to urinate. - Patient also c/o severe suprapubic abdominal discomfort as well as fever. - Mark was placed in ER with 800ml returned. Abdominal pain resolved after Mark place. - Pt had a noted fever of 102.7 at admission. - UA (07/07) reviewed 1000 glucose, moderate occult blood, 59 RBCs, 3 WBCs, not suggestive of UTI. - Patient given a dose of Rocephin x 1 in the ER due to concern for possible UTI - Zosyn started at admission - CBC (07/07): WBC 13.2, hemoglobin 15.9, hematocrit 47.6, platelets 195, neutrophils 88.4%. - Lactic acid improved from 2.6 -> 1.4 - Chest x-ray read as the lungs are clear. - CT abdomen/pelvis (07/08/17) --> Nonspecific bilateral inguinal lymph nodes. Prostatic enlargement. Mark catheter in place. - Blood cultures (07/07) --> 2/2 bottles growing E coli. Zosyn was stopped on and pt started on Levaquin 500mg daily on 07/10 - Repeat blood cultures (07/10)--> with no growth x 2 days - Influenza negative Urinary retention - Mark was placed in ER with 800ml returned. Abdominal pain resolved after Mark place. - Labs on 07/07 with BUN 20, Creatinine 1.30, estimated GFR 66 - continue Flomax - Urology following, patient known to Dr. Garcia - Patient adamantly wanted to try voiding trail here. Patient understands risks and still wanted Mark removed on 07/10 - Mark removed on 07/10 and pt having difficulty voiding and with noted hematuria on 07/11 - Mark was replaced by Urology on 07/11 and pt started on CBI. - Pt had a scrotal US (07/11) which noted hyperemic nodular thickening of the right epididymal tail suggesting presence of epididymitis, small bilateral hydroceles, no evidence of testicular mass or torsion. - Levaquin was changed to 750mg po daily on 07/11/17 by Urology - Pts pain is better controlled today - Continue CBI per Urology recommendations, when urine clears d/c with Mark catheter to followup as an outpt in their clinic. - Urology recommending antibiotics for 2 weeks, continuing Flomax and Oxybutynin HTN (hypertension) - Continue home Nifedipine 60 mg daily and lisinopril 20 mg PO BID - Monitor BP - BP has been elevated periodically but improved with better pain control - Vasotec and clonidine as needed Hyperlipemia - Hold statin due to elevated liver enzymes Diabetes - Resume Metformin 1000mg po BID - Diabetic diet - Accu checks ACHS with SSI coverage Elevated LFTs - Statin held due to elevated liver enzymes - Labs on 07/07 with total Bilirubin 3.8, AST 101, ALT 117, alkaline phosphatase 156 - Repeat labs on 07/09 are improving, with TBili 2.7, AST 55, ALT 72, AlkPhos 148 - CT abdomen/pelvis (07/08)--> nonspecific bilateral inguinal lymph nodes. Prostatic enlargement and Mark catheter in place - MRCP (07/08) --> The intrahepatic and extrahepatic biliary tree is normal, liver is unremarkable - Repeat labs on 07/12 improving overall with TBili 0.7, AST 26, ALT 66, AlkPhos 240 (2) Urinary retention ICD Codes: R33.9 - Retention of urine, unspecified Status: Acute Plan: (3) HTN (hypertension) ICD Codes: I10 - Essential (primary) hypertension (4) Hyperlipemia ICD Codes: E78.5 - Hyperlipidemia, unspecified (5) Diabetes ICD Codes: E11.9 - Type 2 diabetes mellitus without complications (6) Elevated LFTs ICD Codes: R79.89 - Other specified abnormal findings of blood chemistry Assessment and Plan Patient examined. Assessment and plan formulated with Ne Dallas PA-C. I agree with the above. s/p prostate bx. ecoli bacteremia related to bx. repeat blood cx ngtd cont levaquin x 2 weeks. hematuria related to bx. cont cbi and will plan d/c home with mark and voiding trial in office. flomax/proscar. resume metformin and titrate up his levemir. prn pain control. Ne Dallas Jul 12, 2017 11:27 Miguelito Coyle MD Jul 12, 2017 14:14
--- NOTE | 2017-07-12 13:58 | HHI.PR ---
Subjective Patient symptoms today Pt was seen at the bedside this afternoon. No acute events overnight. Pain improved, urine is clearing up on CBI. no f/c/n/v. Scrotal US is c/w epididymitis Pt is on antbx already. Labs and VS are stable Objective Vital Signs Vital Signs Date Time Temp Pulse Resp B/P (MAP) Pulse Ox O2 Delivery O2 Flow Rate FiO2 07/12/17 12:00 98.6 74 17 136/73 (94) 96 07/12/17 08:00 97.5 68 18 125/70 (88) 94 07/12/17 04:00 96.6 81 20 135/72 (93) 93 07/12/17 02:01 94 07/12/17 00:00 97.8 80 20 153/90 (111) 96 07/11/17 20:00 97.2 93 18 157/89 (111) 95 07/11/17 17:55 88 114/73 (87) 07/11/17 16:00 99.4 113 17 200/108 (138) 93 Intake & Output 07/12/17 07/12/17 07:00 19:00 Output Total 900 ml Balance -900 ml Output Urine Total 900 ml Result Diagram: 07/12/17 0440 07/12/17 0440 Objective Remarks NAD. A/O x 3 RRR Normal breath sounds Mark is in place, CBI connected, running at 1-2drop/sec Urine is pink Medications and IVs Current Medications Medications (Trade) Dose Ordered Sig/Rod Route Start Time Stop Time Status Last Admin (NS Flush) 2 ml UNSCH PRN IV FLUSH 07/08/17 02:00 (NS Flush) 2 ml BID IV FLUSH 07/08/17 09:00 07/12/17 08:22 (Zofran Inj) 4 mg Q6H PRN IVP 07/08/17 02:00 (Narcan Inj) 0.4 mg UNSCH PRN IV PUSH 07/08/17 02:00 (Milk Of Magnesia Liq) 30 ml Q12H PRN PO 07/08/17 02:00 07/09/17 19:26 (Prinivil) 20 mg BID PO 07/08/17 09:00 07/12/17 08:21 (Procardia Xl) 60 mg DAILY PO 07/08/17 09:00 07/12/17 08:21 (Pravachol) 40 mg HS PO 07/08/17 21:00 Future Hold (Flomax) 0.4 mg DAILY PO 07/09/17 09:00 07/12/17 08:21 (Motrin) 600 mg Q8HR PRN PO 07/08/17 17:45 07/09/17 19:27 (NovoLOG SUPPLEMENTAL SCALE) 1 ACHS SLIDING SCALE SQ 07/09/17 12:00 07/12/17 11:57 (Colace) 100 mg BID PO 07/10/17 21:00 07/12/17 08:22 (Ditropan) 5 mg Q8H PO 07/11/17 20:00 07/12/17 11:56 (Vasotec Inj) 1.25 mg Q4H PRN IV 07/11/17 16:30 (Catapres) 0.2 mg Q6H PRN PO 07/11/17 16:30 (Levaquin) 750 mg DAILY PO 07/11/17 16:30 07/12/17 08:21 (Dilaudid Pf Inj) 1 mg Q3H PRN IV 07/11/17 17:00 07/12/17 05:26 (Glucophage) 1,000 mg BIDPC PO 07/12/17 18:00 Assessment and Plan Assessment and Plan 72y.o. M admitted for urosepsis post recent Prostate biopsy - Continue management as per primary team. Continue flomax add Proscar. Pt has no spasms, Oxybutynin can be stopped - Pt can be discharged home when cleared by primary team. Please d/c with mark catheter and f/u as outpt at our clinic for voiding trial. - D/c with antibiotics x 2 weeks, flomax and proscar - F/U as scheduled with Dr Garcia to discuss biopsy results and voiding trial. Moises Holguin Jul 12, 2017 13:58
[2017-07-12] MEDS: MAGNESIUM HYDROXIDE SUSP 30 ML CUP PO PRN (14:53)
[2017-07-12] MEDS: FINASTERIDE 5 MG TAB PO SCH (14:53)
[2017-07-12] MEDS: metFORMIN HCL 500 MG TAB PO SCH (18:14)
[2017-07-12] MEDS: INSULIN DETEMIR 100 UNITS/ML VIAL SQ SCH (22:02)
[2017-07-13] VITALS (7 sets, daily range): BP systolic 111–121; BP diastolic 63–68; PULSE 70–89; RESP 17–20; TEMP 97.4–99.5; O2SAT 94–97
[2017-07-13] MEDS: HYDROmorphone HCL PF 2 MG/ML VIAL IV PRN ×3 (03:33→19:55)
[2017-07-13] MEDS: INSULIN ASPART SUPPLEMENTAL SCALE SQ SCH ×4 (09:32→20:48)
[2017-07-13] MEDS: SODIUM CHLORIDE 0.9% FLUSH 10 ML FLUSH IV FLUSH SCH ×2 (09:33→19:57)
[2017-07-13] MEDS: LISINOPRIL 20 MG TAB PO SCH ×2 (09:34→20:00)
[2017-07-13] MEDS: FINASTERIDE 5 MG TAB PO SCH (09:34)
[2017-07-13] MEDS: DOCUSATE SODIUM 100 MG CAP PO SCH ×2 (09:34→19:57)
[2017-07-13] MEDS: LEVOFLOXACIN 750 MG TAB PO SCH (09:34)
[2017-07-13] MEDS: TAMSULOSIN HCL 0.4 MG CAP PO SCH (09:34)
[2017-07-13] MEDS: metFORMIN HCL 500 MG TAB PO SCH ×2 (09:35→18:58)
[2017-07-13] MEDS: NIFEdipine 60 MG SUSTAINED RELEASE TAB PO SCH (09:37)
--- NOTE | 2017-07-13 11:01 | HHI.PR ---
Subjective Remarks ambulating. feels better after shower Objective Vitals heart reg lung cta abd s/nt ext no edema mark. dark blood Vital Signs Date Time Temp Pulse Resp B/P (MAP) Pulse Ox O2 Delivery O2 Flow Rate FiO2 07/13/17 08:00 98.5 70 18 114/68 (83) 94 07/13/17 04:00 99.0 71 18 111/66 (81) 94 07/13/17 00:09 84 07/13/17 00:00 97.7 82 20 116/67 (83) 94 07/12/17 20:00 98.2 78 20 136/86 (103) 94 07/12/17 16:00 98.1 83 17 128/79 (95) 93 07/12/17 12:00 98.6 74 17 136/73 (94) 96 Result Diagram: 07/12/17 0440 07/12/17 0440 Imaging Last Impressions Chest X-Ray 07/07/17 2311 Signed Impressions: Service Date/Time: Friday, July 07, 2017 23:22 - CONCLUSION: The lungs are clear. Baron Fonseca MD Abdomen/Pelvis CT 07/07/17 0000 Signed Impressions: Service Date/Time: Saturday, July 08, 2017 01:00 - CONCLUSION: 1. Nonspecific bilateral inguinal lymph nodes. 2. Prostatic enlargement. Mark catheter in place. Baron Fonseca MD A/P Problem List: (1) Fever ICD Codes: R50.9 - Fever, unspecified Status: Acute Plan: Fever - Patient underwent prostate biopsy by Dr. Garcia 2 days prior to admission, then presented to the ER complaining of inability to urinate. - Patient also c/o severe suprapubic abdominal discomfort as well as fever. - Mark was placed in ER with 800ml returned. Abdominal pain resolved after Mark place. - Pt had a noted fever of 102.7 at admission. - UA (07/07) reviewed 1000 glucose, moderate occult blood, 59 RBCs, 3 WBCs, not suggestive of UTI. - CT abdomen/pelvis (07/08/17) --> Nonspecific bilateral inguinal lymph nodes. Prostatic enlargement. Mark catheter in place. - Blood cultures (07/07) --> 2/2 bottles growing E coli. Zosyn was stopped on and pt started on Levaquin 500mg daily on 07/10 - Repeat blood cultures (07/10)--> with no growth - Influenza negative -Fever was related to ecoli bacteremia from urinary tract. fever resolved. cont rx d/c home hopefully over the weekend with [facility] to follow...if urine clears. f/u office for path result Urinary retention - Mark was placed in ER with 800ml returned. Abdominal pain resolved after Mark place. - Labs on 07/07 with BUN 20, Creatinine 1.30, estimated GFR 66 - continue Flomax - Urology following, patient known to Dr. Garcia - Patient adamantly wanted to try voiding trail here. Patient understands risks and still wanted Mark removed on 07/10 - Mark removed on 07/10 and pt having difficulty voiding and with noted hematuria on 07/11 - Mark was replaced by Urology on 07/11 and pt started on CBI. - Pt had a scrotal US (07/11) which noted hyperemic nodular thickening of the right epididymal tail suggesting presence of epididymitis, small bilateral hydroceles, no evidence of testicular mass or torsion. - Levaquin was changed to 750mg po daily on 07/11/17 by Urology - Pts pain is better controlled today - Continue CBI per Urology recommendations, when urine clears d/c with Mark catheter to followup as an outpt in their clinic. - Urology recommending antibiotics for 2 weeks, continuing Flomax and proscar HTN (hypertension) - Continue home Nifedipine 60 mg daily and lisinopril 20 mg PO BID - Monitor BP - BP has been elevated periodically but improved with better pain control - Vasotec and clonidine as needed Hyperlipemia - Hold statin due to elevated liver enzymes Diabetes - Resume Metformin 1000mg po BID - Diabetic diet - Accu checks ACHS with SSI coverage Elevated LFTs - Statin held due to elevated liver enzymes - Labs on 07/07 with total Bilirubin 3.8, AST 101, ALT 117, alkaline phosphatase 156 - Repeat labs on 07/09 are improving, with TBili 2.7, AST 55, ALT 72, AlkPhos 148 - CT abdomen/pelvis (07/08)--> nonspecific bilateral inguinal lymph nodes. Prostatic enlargement and Mark catheter in place - MRCP (07/08) --> The intrahepatic and extrahepatic biliary tree is normal, liver is unremarkable - Repeat labs on 07/12 improving overall with TBili 0.7, AST 26, ALT 66, AlkPhos 240 (2) Urinary retention ICD Codes: R33.9 - Retention of urine, unspecified Status: Acute Plan: (3) HTN (hypertension) ICD Codes: I10 - Essential (primary) hypertension (4) Hyperlipemia ICD Codes: E78.5 - Hyperlipidemia, unspecified (5) Diabetes ICD Codes: E11.9 - Type 2 diabetes mellitus without complications (6) Elevated LFTs ICD Codes: R79.89 - Other specified abnormal findings of blood chemistry Miguelito Coyle MD Jul 13, 2017 11:01
[2017-07-13] MEDS: INSULIN DETEMIR 100 UNITS/ML VIAL SQ SCH (20:47)
[2017-07-14] VITALS (7 sets, daily range): BP systolic 109–145; BP diastolic 62–83; PULSE 79–89; RESP 16–18; TEMP 97.4–99.5; O2SAT 93–98
[2017-07-14] MEDS: HYDROmorphone HCL PF 2 MG/ML VIAL IV PRN ×2 (08:27→18:32)
[2017-07-14] MEDS: metFORMIN HCL 500 MG TAB PO SCH ×2 (08:30→18:32)
[2017-07-14] MEDS: SODIUM CHLORIDE 0.9% FLUSH 10 ML FLUSH IV FLUSH SCH ×2 (08:31→22:16)
[2017-07-14] MEDS: TAMSULOSIN HCL 0.4 MG CAP PO SCH (08:31)
[2017-07-14] MEDS: LISINOPRIL 20 MG TAB PO SCH ×2 (08:31→22:16)
[2017-07-14] MEDS: FINASTERIDE 5 MG TAB PO SCH (08:31)
[2017-07-14] MEDS: DOCUSATE SODIUM 100 MG CAP PO SCH ×2 (08:31→22:15)
[2017-07-14] MEDS: NIFEdipine 60 MG SUSTAINED RELEASE TAB PO SCH (08:32)
[2017-07-14] MEDS: LEVOFLOXACIN 750 MG TAB PO SCH (08:32)
[2017-07-14] MEDS: INSULIN ASPART SUPPLEMENTAL SCALE SQ SCH ×4 (09:52→22:25)
[2017-07-14] MEDS ORDERED: oxyCODONE/ACETAMINOPHEN 5 MG/325 MG TAB PO PRN (12:45)
--- NOTE | 2017-07-14 12:46 | HHI.PR ---
Subjective Patient symptoms today Hematuria improving, however significant bladder spasms Reports right testicular pain Objective Vital Signs Vital Signs Date Time Temp Pulse Resp B/P (MAP) Pulse Ox O2 Delivery O2 Flow Rate FiO2 07/14/17 12:00 97.7 89 18 145/80 (101) 97 07/14/17 08:00 98.4 80 18 144/83 (103) 95 07/14/17 04:00 99.5 79 18 129/70 (89) 98 07/14/17 00:00 99.4 88 17 118/65 (82) 97 07/13/17 21:21 20 07/13/17 20:00 97.4 89 18 121/67 (85) 97 07/13/17 16:00 99.5 79 17 119/66 (83) 95 Intake & Output 07/14/17 07/14/17 07:00 19:00 Intake Total 580 ml Output Total 1000 ml Balance -420 ml Intake Oral 580 ml Output Urine Total 1000 ml # Bowel Movements 1 Result Diagram: 07/12/1743907/12/17 044 Objective Remarks NAD. A/O x 3 Normal breath sounds Mark is in place, CBI on hold, light pink to clear urine Right testis swollen and tender to palpation, palpable epididymis significantly tender Medications and IVs Current Medications Medications (Trade) Dose Ordered Sig/Rod Route Start Time Stop Time Status Last Admin (NS Flush) 2 ml UNSCH PRN IV FLUSH 07/08/17 02:00 (NS Flush) 2 ml BID IV FLUSH 07/08/17 09:00 07/14/17 08:31 (Zofran Inj) 4 mg Q6H PRN IVP 07/08/17 02:00 (Narcan Inj) 0.4 mg UNSCH PRN IV PUSH 07/08/17 02:00 (Milk Of Magnesia Liq) 30 ml Q12H PRN PO 07/08/17 02:00 07/12/17 14:53 (Prinivil) 20 mg BID PO 07/08/17 09:00 07/14/17 08:31 (Procardia Xl) 60 mg DAILY PO 07/08/17 09:00 07/14/17 08:32 (Pravachol) 40 mg HS PO 07/08/17 21:00 Future Hold (Flomax) 0.4 mg DAILY PO 07/09/17 09:00 07/14/17 08:31 (Motrin) 600 mg Q8HR PRN PO 07/08/17 17:45 07/09/17 19:27 (NovoLOG SUPPLEMENTAL SCALE) 1 ACHS SLIDING SCALE SQ 07/09/17 12:00 07/14/17 09:52 (Colace) 100 mg BID PO 07/10/17 21:00 07/14/17 08:31 (Vasotec Inj) 1.25 mg Q4H PRN IV 07/11/17 16:30 (Catapres) 0.2 mg Q6H PRN PO 07/11/17 16:30 (Levaquin) 750 mg DAILY PO 07/11/17 16:30 07/14/17 08:32 (Dilaudid Pf Inj) 1 mg Q3H PRN IV 07/11/17 17:00 07/14/17 08:27 (Glucophage) 1,000 mg BIDPC PO 07/12/17 18:00 07/14/17 08:30 (Levemir Inj) 10 units HS SQ 07/12/17 21:00 07/13/17 20:47 (Proscar) 5 mg DAILY PO 07/12/17 14:00 07/14/17 08:31 Assessment and Plan Assessment and Plan -Blood cultures on 07/10 negative -Now with evidence of epididymal orchitis -Start Cefepime given his overall clinical picutre -Oxybtuynin, B&O suppositories, Pain control -Maintain mark catheter in place. CBI off -Monitor overnight. If does well and pain improved, may consider discharge home tomorrow vs sunday Sean Peralta MD Jul 14, 2017 12:46
[2017-07-14] MEDS: CEFEPIME INJ 2,000 MG in SODIUM CHLORIDE 0.9% INJ 100 ML IV SCH (13:40)
[2017-07-14] MEDS: OXYBUTYNIN CHLORIDE 5 MG TAB PO SCH ×2 (13:40→22:16)
[2017-07-14] MEDS: oxyCODONE/ACETAMINOPHEN 5 MG/325 MG TAB PO PRN ×2 (13:41→22:24)
--- NOTE | 2017-07-14 14:21 | HHI.PR ---
Subjective Remarks no new complaints. Objective Vitals haert reg lung cta abd s/nt ext no edema mark..tea color..light in bag more yellow in tube Vital Signs Date Time Temp Pulse Resp B/P (MAP) Pulse Ox O2 Delivery O2 Flow Rate FiO2 07/14/17 12:00 97.7 89 18 145/80 (101) 97 07/14/17 08:00 98.4 80 18 144/83 (103) 95 07/14/17 04:00 99.5 79 18 129/70 (89) 98 07/14/17 00:00 99.4 88 17 118/65 (82) 97 07/13/17 21:21 20 07/13/17 20:00 97.4 89 18 121/67 (85) 97 07/13/17 16:00 99.5 79 17 119/66 (83) 95 Result Diagram: 07/12/17 0440 07/12/17 0440 Imaging Last Impressions Chest X-Ray 07/07/17 2311 Signed Impressions: Service Date/Time: Friday, July 07, 2017 23:22 - CONCLUSION: The lungs are clear. Baron Fonseca MD Abdomen/Pelvis CT 07/07/17 0000 Signed Impressions: Service Date/Time: Saturday, July 08, 2017 01:00 - CONCLUSION: 1. Nonspecific bilateral inguinal lymph nodes. 2. Prostatic enlargement. Mark catheter in place. Baron Fonseca MD A/P Problem List: (1) Fever ICD Codes: R50.9 - Fever, unspecified Status: Acute Plan: Fever - Patient underwent prostate biopsy by Dr. Garcia 2 days prior to admission, then presented to the ER complaining of inability to urinate. - Patient also c/o severe suprapubic abdominal discomfort as well as fever. - Mark was placed in ER with 800ml returned. Abdominal pain resolved after Mark place. - Pt had a noted fever of 102.7 at admission. - UA (07/07) reviewed 1000 glucose, moderate occult blood, 59 RBCs, 3 WBCs, not suggestive of UTI. - CT abdomen/pelvis (07/08/17) --> Nonspecific bilateral inguinal lymph nodes. Prostatic enlargement. Mark catheter in place. - Blood cultures (07/07) --> 2/2 bottles growing E coli. Zosyn was stopped on and pt started on Levaquin 500mg daily on 07/10 - Repeat blood cultures (07/10)--> with no growth - Influenza negative -Fever was related to ecoli bacteremia from urinary tract. fever resolved. cont rx - also has epididymitis clinically and on u/s urology adjusted abx today dc when ok with Urology Urinary retention - Mark was placed in ER with 800ml returned. Abdominal pain resolved after Mark place. - Labs on 07/07 with BUN 20, Creatinine 1.30, estimated GFR 66 - continue Flomax - Urology following, patient known to Dr. Garcia - Patient adamantly wanted to try voiding trail here. Patient understands risks and still wanted Mark removed on 07/10 - Mark removed on 07/10 and pt having difficulty voiding and with noted hematuria on 07/11 - Mark was replaced by Urology on 07/11 and pt started on CBI. - Pt had a scrotal US (07/11) which noted hyperemic nodular thickening of the right epididymal tail suggesting presence of epididymitis, small bilateral hydroceles, no evidence of testicular mass or torsion. - Levaquin was changed to 750mg po daily on 07/11/17 by Urology - Pts pain is better controlled today - Continue CBI per Urology recommendations, when urine clears d/c with Mark catheter to followup as an outpt in their clinic. - Urology recommending antibiotics for 2 weeks, continuing Flomax and proscar HTN (hypertension) - Continue home Nifedipine 60 mg daily and lisinopril 20 mg PO BID - Monitor BP - BP has been elevated periodically but improved with better pain control - Vasotec and clonidine as needed Hyperlipemia - Hold statin due to elevated liver enzymes Diabetes - Resume Metformin 1000mg po BID - Diabetic diet - Accu checks ACHS with SSI coverage Elevated LFTs - Statin held due to elevated liver enzymes - Labs on 07/07 with total Bilirubin 3.8, AST 101, ALT 117, alkaline phosphatase 156 - Repeat labs on 07/09 are improving, with TBili 2.7, AST 55, ALT 72, AlkPhos 148 - CT abdomen/pelvis (07/08)--> nonspecific bilateral inguinal lymph nodes. Prostatic enlargement and Mark catheter in place - MRCP (07/08) --> The intrahepatic and extrahepatic biliary tree is normal, liver is unremarkable - Repeat labs on 07/12 improving overall with TBili 0.7, AST 26, ALT 66, AlkPhos 240 (2) Urinary retention ICD Codes: R33.9 - Retention of urine, unspecified Status: Acute Plan: (3) HTN (hypertension) ICD Codes: I10 - Essential (primary) hypertension (4) Hyperlipemia ICD Codes: E78.5 - Hyperlipidemia, unspecified (5) Diabetes ICD Codes: E11.9 - Type 2 diabetes mellitus without complications (6) Elevated LFTs ICD Codes: R79.89 - Other specified abnormal findings of blood chemistry Miguelito Coyle MD Jul 14, 2017 14:21
[2017-07-14] MEDS: BELLADONNA ALKALOIDS/OPIUM 60 MG SUPP RECTAL PRN (22:24)
[2017-07-14] MEDS: INSULIN DETEMIR 100 UNITS/ML VIAL SQ SCH (22:25)
[2017-07-15] VITALS (8 sets, daily range): BP systolic 110–155; BP diastolic 64–85; PULSE 66–108; RESP 16–18; TEMP 97.1–98.7; O2SAT 90–98
[2017-07-15] MEDS: CEFEPIME INJ 2,000 MG in SODIUM CHLORIDE 0.9% INJ 100 ML IV SCH ×2 (01:46→12:12)
[2017-07-15] MEDS: OXYBUTYNIN CHLORIDE 5 MG TAB PO SCH ×3 (04:56→21:02)
[2017-07-15] MEDS: INSULIN ASPART SUPPLEMENTAL SCALE SQ SCH ×4 (08:00→21:01)
[2017-07-15] MEDS: FINASTERIDE 5 MG TAB PO SCH (09:20)
[2017-07-15] MEDS: TAMSULOSIN HCL 0.4 MG CAP PO SCH (09:21)
[2017-07-15] MEDS: metFORMIN HCL 500 MG TAB PO SCH ×2 (09:21→17:10)
[2017-07-15] MEDS: LEVOFLOXACIN 750 MG TAB PO SCH (09:21)
[2017-07-15] MEDS: NIFEdipine 60 MG SUSTAINED RELEASE TAB PO SCH (09:21)
[2017-07-15] MEDS: SODIUM CHLORIDE 0.9% FLUSH 10 ML FLUSH IV FLUSH SCH ×2 (09:21→21:02)
[2017-07-15] MEDS: LISINOPRIL 20 MG TAB PO SCH ×2 (09:21→21:02)
[2017-07-15] MEDS: DOCUSATE SODIUM 100 MG CAP PO SCH ×2 (09:21→21:02)
[2017-07-15] MEDS: oxyCODONE/ACETAMINOPHEN 5 MG/325 MG TAB PO PRN ×3 (10:02→23:25)
--- NOTE | 2017-07-15 12:44 | HHI.PR ---
Subjective Remarks says he feels overall better urine looks less bloody everyday still has intermittent bladder spasm pain Objective Vitals heart reg lung cta abd s/nt ext no edema mark..nonbloody. Vital Signs Date Time Temp Pulse Resp B/P (MAP) Pulse Ox O2 Delivery O2 Flow Rate FiO2 07/15/17 12:00 98.6 80 17 128/69 (88) 98 07/15/17 08:00 97.1 75 16 110/69 (83) 96 07/15/17 04:00 98.4 66 18 118/69 (85) 96 07/15/17 00:00 98.7 71 18 115/64 (81) 94 07/14/17 20:00 97.7 85 18 121/74 (90) 93 07/14/17 19:22 80 07/14/17 16:00 97.4 86 16 109/62 (78) 94 Result Diagram: 07/12/17 0440 07/12/17 0440 Imaging Last Impressions Chest X-Ray 07/07/17 2311 Signed Impressions: Service Date/Time: Friday, July 07, 2017 23:22 - CONCLUSION: The lungs are clear. Baron Fonseca MD Abdomen/Pelvis CT 07/07/17 0000 Signed Impressions: Service Date/Time: Saturday, July 08, 2017 01:00 - CONCLUSION: 1. Nonspecific bilateral inguinal lymph nodes. 2. Prostatic enlargement. Mark catheter in place. Baron Fonseca MD A/P Problem List: (1) Fever ICD Codes: R50.9 - Fever, unspecified Status: Acute Plan: Fever - Patient underwent prostate biopsy by Dr. Garcia 2 days prior to admission, then presented to the ER complaining of inability to urinate. - Patient also c/o severe suprapubic abdominal discomfort as well as fever. - Mark was placed in ER with 800ml returned. Abdominal pain resolved after Mark place. - Pt had a noted fever of 102.7 at admission. - UA (07/07) reviewed 1000 glucose, moderate occult blood, 59 RBCs, 3 WBCs, not suggestive of UTI. - CT abdomen/pelvis (07/08/17) --> Nonspecific bilateral inguinal lymph nodes. Prostatic enlargement. Mark catheter in place. - Blood cultures (07/07) --> 2/2 bottles growing E coli. Zosyn was stopped on and pt started on Levaquin 500mg daily on 07/10 - Repeat blood cultures (07/10)--> with no growth - Influenza negative -Fever was related to ecoli bacteremia from urinary tract. fever resolved. cont rx - also has epididymitis clinically and on u/s urology adjusted abx dc when ok with Urology Urinary retention - Mark was placed in ER with 800ml returned. Abdominal pain resolved after Mark place. - Labs on 07/07 with BUN 20, Creatinine 1.30, estimated GFR 66 - continue Flomax - Urology following, patient known to Dr. Garcia - Patient adamantly wanted to try voiding trail here. Patient understands risks and still wanted Mark removed on 07/10 - Mark removed on 07/10 and pt having difficulty voiding and with noted hematuria on 07/11 - Mark was replaced by Urology on 07/11 and pt started on CBI. - Pt had a scrotal US (07/11) which noted hyperemic nodular thickening of the right epididymal tail suggesting presence of epididymitis, small bilateral hydroceles, no evidence of testicular mass or torsion. - Levaquin was changed to 750mg po daily on 07/11/17 by Urology - Pts pain is better controlled today - Continue CBI per Urology recommendations, when urine clears d/c with Mark catheter to followup as an outpt in their clinic. - Urology recommending antibiotics for 2 weeks, continuing Flomax and proscar HTN (hypertension) - Continue home Nifedipine 60 mg daily and lisinopril 20 mg PO BID - Monitor BP - BP has been elevated periodically but improved with better pain control - Vasotec and clonidine as needed Hyperlipemia - Hold statin due to elevated liver enzymes Diabetes - Resume Metformin 1000mg po BID - Diabetic diet - Accu checks ACHS with SSI coverage Elevated LFTs - Statin held due to elevated liver enzymes - Labs on 07/07 with total Bilirubin 3.8, AST 101, ALT 117, alkaline phosphatase 156 - Repeat labs on 07/09 are improving, with TBili 2.7, AST 55, ALT 72, AlkPhos 148 - CT abdomen/pelvis (07/08)--> nonspecific bilateral inguinal lymph nodes. Prostatic enlargement and Mark catheter in place - MRCP (07/08) --> The intrahepatic and extrahepatic biliary tree is normal, liver is unremarkable - Repeat labs on 07/12 improving overall with TBili 0.7, AST 26, ALT 66, AlkPhos 240 (2) Urinary retention ICD Codes: R33.9 - Retention of urine, unspecified Status: Acute Plan: (3) HTN (hypertension) ICD Codes: I10 - Essential (primary) hypertension (4) Hyperlipemia ICD Codes: E78.5 - Hyperlipidemia, unspecified (5) Diabetes ICD Codes: E11.9 - Type 2 diabetes mellitus without complications (6) Elevated LFTs ICD Codes: R79.89 - Other specified abnormal findings of blood chemistry Miguelito Coyle MD Jul 15, 2017 12:44
--- NOTE | 2017-07-15 19:14 | HHI.PR ---
Subjective Patient symptoms today Doing well, pain improved. Catheter in place, light red urine, no clots Objective Vital Signs Vital Signs Date Time Temp Pulse Resp B/P (MAP) Pulse Ox O2 Delivery O2 Flow Rate FiO2 07/15/17 16:00 98.2 73 18 136/85 (102) 97 07/15/17 12:00 98.6 80 17 128/69 (88) 98 07/15/17 08:00 97.1 75 16 110/69 (83) 96 07/15/17 04:00 98.4 66 18 118/69 (85) 96 07/15/17 00:00 98.7 71 18 115/64 (81) 94 07/14/17 20:00 97.7 85 18 121/74 (90) 93 07/14/17 19:22 80 Result Diagram: 07/12/1743907/12/17439 Objective Remarks NAD. A/O x 3 Normal breath sounds Mark is in place, CBI on hold, light pink to clear urine Medications and IVs Current Medications Medications (Trade) Dose Ordered Sig/Rod Route Start Time Stop Time Status Last Admin (NS Flush) 2 ml UNSCH PRN IV FLUSH 07/08/17 02:00 (NS Flush) 2 ml BID IV FLUSH 07/08/17 09:00 07/15/17 09:21 (Zofran Inj) 4 mg Q6H PRN IVP 07/08/17 02:00 (Narcan Inj) 0.4 mg UNSCH PRN IV PUSH 07/08/17 02:00 (Milk Of Magnesia Liq) 30 ml Q12H PRN PO 07/08/17 02:00 07/12/17 14:53 (Prinivil) 20 mg BID PO 07/08/17 09:00 07/15/17 09:21 (Procardia Xl) 60 mg DAILY PO 07/08/17 09:00 07/15/17 09:21 (Pravachol) 40 mg HS PO 07/08/17 21:00 Future Hold (Flomax) 0.4 mg DAILY PO 07/09/17 09:00 07/15/17 09:21 (Motrin) 600 mg Q8HR PRN PO 07/08/17 17:45 07/09/17 19:27 (NovoLOG SUPPLEMENTAL SCALE) 1 ACHS SLIDING SCALE SQ 07/09/17 12:00 07/14/17 22:25 (Colace) 100 mg BID PO 07/10/17 21:00 07/15/17 09:21 (Vasotec Inj) 1.25 mg Q4H PRN IV 07/11/17 16:30 (Catapres) 0.2 mg Q6H PRN PO 07/11/17 16:30 (Levaquin) 750 mg DAILY PO 07/11/17 16:30 07/15/17 09:21 (Dilaudid Pf Inj) 1 mg Q3H PRN IV 07/11/17 17:00 07/14/17 18:32 (Glucophage) 1,000 mg BIDPC PO 07/12/17 18:00 07/15/17 17:10 (Proscar) 5 mg DAILY PO 07/12/17 14:00 07/15/17 09:20 Cefepime HCl 2000 mg/Sodium Chloride 100 ml @ 200 mls/hr Q12H IV 07/14/17 14:00 07/15/17 12:12 (B & O Supp) 60 mg Q12HR PRN RECTAL 07/14/17 12:45 07/14/17 22:24 (Ditropan) 5 mg Q8HR PO 07/14/17 14:00 07/15/17 12:12 (Percocet 5-325 Mg) 2 tab Q6H PRN PO 07/14/17 13:00 07/15/17 17:11 (Levemir Inj) 15 units HS SQ 07/14/17 21:00 07/14/17 22:25 Assessment and Plan Assessment and Plan -Continue Cefepime -Hold CBI as urine is draining well -If continues to improve, may potentially discharge home tomorrow with PO Bactrim and mark in place with follow-up in clinic in 1 week -Will follow Sean Peralta MD Jul 15, 2017 19:14
[2017-07-15] MEDS: INSULIN DETEMIR 100 UNITS/ML VIAL SQ SCH (21:01)
[2017-07-15] MEDS: BELLADONNA ALKALOIDS/OPIUM 60 MG SUPP RECTAL PRN (21:17)
[2017-07-15] MEDS: HYDROmorphone HCL PF 2 MG/ML VIAL IV PRN (21:21)
[2017-07-16] MEDS: CEFEPIME INJ 2,000 MG in SODIUM CHLORIDE 0.9% INJ 100 ML IV SCH ×2 (03:14→17:22)
[2017-07-16] MEDS: OXYBUTYNIN CHLORIDE 5 MG TAB PO SCH ×3 (03:57→21:50)
[2017-07-16 05:38] VITALS: BP 122/64; PULSE 67; RESP 18; TEMP 99.1; O2SAT 98
[2017-07-16] MEDS: oxyCODONE/ACETAMINOPHEN 5 MG/325 MG TAB PO PRN ×2 (06:40→17:25)
[2017-07-16 08:00] VITALS: BP 109/58; PULSE 80; PULSE 82; RESP 17; TEMP 98.8; O2SAT 93
[2017-07-16] MEDS: INSULIN ASPART SUPPLEMENTAL SCALE SQ SCH ×4 (08:00→21:00)
[2017-07-16] MEDS: LISINOPRIL 20 MG TAB PO SCH ×2 (09:38→21:00)
[2017-07-16] MEDS: DOCUSATE SODIUM 100 MG CAP PO SCH ×2 (09:38→20:10)
[2017-07-16] MEDS: FINASTERIDE 5 MG TAB PO SCH (09:38)
[2017-07-16] MEDS: TAMSULOSIN HCL 0.4 MG CAP PO SCH (09:38)
[2017-07-16] MEDS: LEVOFLOXACIN 750 MG TAB PO SCH (09:38)
[2017-07-16] MEDS: NIFEdipine 60 MG SUSTAINED RELEASE TAB PO SCH (09:38)
[2017-07-16] MEDS: SODIUM CHLORIDE 0.9% FLUSH 10 ML FLUSH IV FLUSH SCH ×2 (09:39→20:10)
[2017-07-16] MEDS: metFORMIN HCL 500 MG TAB PO SCH ×2 (09:39→17:24)
[2017-07-16] MEDS: HYDROmorphone HCL PF 2 MG/ML VIAL IV PRN (09:57)
[2017-07-16 12:00] VITALS: BP 115/64; PULSE 64; PULSE 68; RESP 17; TEMP 95.4; O2SAT 97
--- NOTE | 2017-07-16 13:49 | HHI.PR ---
Subjective Patient symptoms today Pt was seen at bedside today. no f/c/n/v. pain / bladder spasms are better with Ditropan. Urine is clear yellow in tubing. Objective Vital Signs Vital Signs Date Time Temp Pulse Resp B/P (MAP) Pulse Ox O2 Delivery O2 Flow Rate FiO2 07/16/17 12:00 95.4 68 17 115/64 (81) 97 07/16/17 08:00 98.8 80 17 109/58 (75) 93 07/16/17 05:38 99.1 67 18 122/64 (83) 98 07/15/17 21:24 93 07/15/17 20:11 77 07/15/17 20:00 98.6 108 18 155/84 (107) 90 07/15/17 16:00 98.2 73 18 136/85 (102) 97 Intake & Output 07/16/17 07/16/17 07:00 19:00 Intake Total 100 ml Output Total 1200 ml Balance -1100 ml IV Total 100 ml Output Urine Total 1200 ml Result Diagram: 07/12/1743907/12/17439 Objective Remarks NAD. A/O x 3 Normal breath sounds Mark is in place, urine is clear yellow Rt testicle is swollen. + epididymitis Medications and IVs Current Medications Medications (Trade) Dose Ordered Sig/Rod Route Start Time Stop Time Status Last Admin (NS Flush) 2 ml UNSCH PRN IV FLUSH 07/08/17 02:00 (NS Flush) 2 ml BID IV FLUSH 07/08/17 09:00 07/16/17 09:39 (Zofran Inj) 4 mg Q6H PRN IVP 07/08/17 02:00 (Narcan Inj) 0.4 mg UNSCH PRN IV PUSH 07/08/17 02:00 (Milk Of Magnesia Liq) 30 ml Q12H PRN PO 07/08/17 02:00 07/12/17 14:53 (Prinivil) 20 mg BID PO 07/08/17 09:00 07/16/17 09:38 (Procardia Xl) 60 mg DAILY PO 07/08/17 09:00 07/16/17 09:38 (Pravachol) 40 mg HS PO 07/08/17 21:00 Future Hold (Flomax) 0.4 mg DAILY PO 07/09/17 09:00 07/16/17 09:38 (Motrin) 600 mg Q8HR PRN PO 07/08/17 17:45 07/09/17 19:27 (NovoLOG SUPPLEMENTAL SCALE) 1 ACHS SLIDING SCALE SQ 07/09/17 12:00 07/15/17 21:01 (Colace) 100 mg BID PO 07/10/17 21:00 07/16/17 09:38 (Vasotec Inj) 1.25 mg Q4H PRN IV 07/11/17 16:30 (Catapres) 0.2 mg Q6H PRN PO 07/11/17 16:30 (Levaquin) 750 mg DAILY PO 07/11/17 16:30 07/16/17 09:38 (Dilaudid Pf Inj) 1 mg Q3H PRN IV 07/11/17 17:00 07/16/17 09:57 (Glucophage) 1,000 mg BIDPC PO 07/12/17 18:00 07/16/17 09:39 (Proscar) 5 mg DAILY PO 07/12/17 14:00 07/16/17 09:38 Cefepime HCl 2000 mg/Sodium Chloride 100 ml @ 200 mls/hr Q12H IV 07/14/17 14:00 07/16/17 03:14 (B & O Supp) 60 mg Q12HR PRN RECTAL 07/14/17 12:45 07/15/17 21:17 (Ditropan) 5 mg Q8HR PO 07/14/17 14:00 07/16/17 03:57 (Percocet 5-325 Mg) 2 tab Q6H PRN PO 07/14/17 13:00 07/16/17 06:40 (Levemir Inj) 15 units HS SQ 07/14/17 21:00 07/15/17 21:01 Assessment and Plan Assessment and Plan -Continue Cefepime -Keep mark cath in. CBI is on hold - Scrotal elevation. Continue Flomax and oxybutynin - From urology stand point he may potentially be discharge home later today or tomorrow with PO Bactrim x [address], flomax and oxybutynin with follow-up in clinic with Dr Garcia in 1 week - He will also need a jock strap on d/c. - Moises Holguin Jul 16, 2017 13:49
[2017-07-16 16:00] VITALS: BP 128/66; PULSE 74; RESP 17; TEMP 98.6; O2SAT 96
--- NOTE | 2017-07-16 16:41 | HHI.PR ---
Subjective Remarks Pt was unable to sleep last night d/t pelvic/bladder pain. Nursing irrigated pt's mark last night with removal of 2 small clots. Pt has been comfortable all day. Pt sleeping most of the day. Pt is apprehensive about discharge to home. Objective Vitals Vital Signs Date Time Temp Pulse Resp B/P (MAP) Pulse Ox O2 Delivery O2 Flow Rate FiO2 07/16/17 12:00 95.4 68 17 115/64 (81) 97 07/16/17 08:00 98.8 80 17 109/58 (75) 93 07/16/17 05:38 99.1 67 18 122/64 (83) 98 07/15/17 21:24 93 07/15/17 20:11 77 07/15/17 20:00 98.6 108 18 155/84 (107) 90 Result Diagram: 07/12/17 0440 07/12/17 0440 Imaging Last Impressions Scrotum Ultrasound 07/11/17 1252 Signed Impressions: Service Date/Time: Tuesday, July 11, 2017 13:18 - CONCLUSION: 1. Hyperemic nodular thickening of the right epididymal tail suggesting the presence of epididymitis. 2. Small bilateral hydroceles. 3. No evidence of testicular mass or torsion. Suman Vazquez MD Cholangiopancreatography MRI 07/08/17 0000 Signed Impressions: Service Date/Time: Saturday, July 08, 2017 16:10 - CONCLUSION: 1. The intrahepatic and extrahepatic biliary tree is normal. 2. The liver is unremarkable. Alfonso Dawson MD Chest X-Ray 07/07/17 2311 Signed Impressions: Service Date/Time: Friday, July 07, 2017 23:22 - CONCLUSION: The lungs are clear. Baron Fonseca MD Abdomen/Pelvis CT 07/07/17 0000 Signed Impressions: Service Date/Time: Saturday, July 08, 2017 01:00 - CONCLUSION: 1. Nonspecific bilateral inguinal lymph nodes. 2. Prostatic enlargement. Mark catheter in place. Baron Fonseca MD Objective Remarks GENERAL: This is a well-nourished, well-developed patient, in no apparent distress. CARDIOVASCULAR: Regular rate and rhythm without murmurs, gallops, or rubs. RESPIRATORY: Clear to auscultation. Breath sounds equal bilaterally. No wheezes , rales, or rhonchi. GASTROINTESTINAL: Abdomen soft, non-tender, nondistended. Normal active bowel sounds MUSCULOSKELETAL: Extremities without clubbing, cyanosis, or edema. NEURO: Alert & Oriented x4 to person, place, time, situation. Moves all ext x4 A/P Problem List: (1) Fever ICD Codes: R50.9 - Fever, unspecified Status: Acute Plan: Fever - Patient underwent prostate biopsy by Dr. Garcia 2 days prior to admission, then presented to the ER complaining of inability to urinate. - Patient also c/o severe suprapubic abdominal discomfort as well as fever. - Mark was placed in ER with 800ml returned. Abdominal pain resolved after Mark place. - Pt had a noted fever of 102.7 at admission. - UA (07/07) reviewed 1000 glucose, moderate occult blood, 59 RBCs, 3 WBCs, not suggestive of UTI. - CT abdomen/pelvis (07/08/17) --> Nonspecific bilateral inguinal lymph nodes. Prostatic enlargement. Mark catheter in place. - Blood cultures (07/07) --> 2/2 bottles growing E coli. Zosyn was stopped on and pt started on Levaquin 500mg daily on 07/10 - Repeat blood cultures (07/10)--> with no growth - Influenza negative -Fever was related to ecoli bacteremia from urinary tract. fever resolved. cont rx - also has epididymitis clinically and on u/s - Urology cleared pt for discharge on bactrim x 2 weeks - pt had difficulty with DIMAS last night and was in pain - more comfortable today since irrigation - will observe overnight and discharge to home 07/17 if pt remains stable\ Urinary retention - Mark was placed in ER with 800ml returned. Abdominal pain resolved after Mark place. - Labs on 07/07 with BUN 20, Creatinine 1.30, estimated GFR 66 - continue Flomax - Urology following, patient known to Dr. Garcia - Patient adamantly wanted to try voiding trail here. Patient understands risks and still wanted Mark removed on 07/10 - Mark removed on 07/10 and pt having difficulty voiding and with noted hematuria on 07/11 - Mark was replaced by Urology on 07/11 and pt started on CBI. - Pt had a scrotal US (07/11) which noted hyperemic nodular thickening of the right epididymal tail suggesting presence of epididymitis, small bilateral hydroceles, no evidence of testicular mass or torsion. - Levaquin was changed to 750mg po daily on 07/11/17 by Urology - Pts pain is better controlled today - Continue CBI per Urology recommendations, when urine clears d/c with Mark catheter to followup as an outpt in their clinic. - Urology recommending antibiotics for 2 weeks, continuing Flomax and proscar HTN (hypertension) - Continue home Nifedipine 60 mg daily and lisinopril 20 mg PO BID - Monitor BP - BP has been elevated periodically but improved with better pain control - Vasotec and clonidine as needed Hyperlipemia - Hold statin due to elevated liver enzymes Diabetes - Resume Metformin 1000mg po BID - Diabetic diet - Accu checks ACHS with SSI coverage Elevated LFTs - Statin held due to elevated liver enzymes - Labs on 07/07 with total Bilirubin 3.8, AST 101, ALT 117, alkaline phosphatase 156 - Repeat labs on 07/09 are improving, with TBili 2.7, AST 55, ALT 72, AlkPhos 148 - CT abdomen/pelvis (07/08)--> nonspecific bilateral inguinal lymph nodes. Prostatic enlargement and Mark catheter in place - MRCP (07/08) --> The intrahepatic and extrahepatic biliary tree is normal, liver is unremarkable - Repeat labs on 07/12 improving overall with TBili 0.7, AST 26, ALT 66, AlkPhos 240 (2) Urinary retention ICD Codes: R33.9 - Retention of urine, unspecified Status: Acute Plan: (3) HTN (hypertension) ICD Codes: I10 - Essential (primary) hypertension (4) Hyperlipemia ICD Codes: E78.5 - Hyperlipidemia, unspecified (5) Diabetes ICD Codes: E11.9 - Type 2 diabetes mellitus without complications (6) Elevated LFTs ICD Codes: R79.89 - Other specified abnormal findings of blood chemistry Alec Cotter DO Jul 16, 2017 16:41
[2017-07-16 20:00] VITALS: BP 116/60; PULSE 70; PULSE 78; RESP 20; TEMP 98.6; O2SAT 95
[2017-07-16] MEDS: INSULIN DETEMIR 100 UNITS/ML VIAL SQ SCH (21:48)
[2017-07-17] VITALS (8 sets, daily range): BP systolic 111–123; BP diastolic 57–69; PULSE 65–79; RESP 16–20; TEMP 96.6–99.1; O2SAT 93–96
[2017-07-17] MEDS: oxyCODONE/ACETAMINOPHEN 5 MG/325 MG TAB PO PRN ×2 (00:09→08:42)
[2017-07-17] MEDS: CEFEPIME INJ 2,000 MG in SODIUM CHLORIDE 0.9% INJ 100 ML IV SCH ×2 (02:12→12:44)
[2017-07-17] MEDS: OXYBUTYNIN CHLORIDE 5 MG TAB PO SCH ×3 (05:39→21:55)
[2017-07-17] MEDS: INSULIN ASPART SUPPLEMENTAL SCALE SQ SCH ×4 (07:37→21:00)
[2017-07-17] MEDS: metFORMIN HCL 500 MG TAB PO SCH ×2 (08:34→18:00)
[2017-07-17] MEDS: NIFEdipine 60 MG SUSTAINED RELEASE TAB PO SCH (08:34)
[2017-07-17] MEDS: LEVOFLOXACIN 750 MG TAB PO SCH (08:34)
[2017-07-17] MEDS: FINASTERIDE 5 MG TAB PO SCH (08:34)
[2017-07-17] MEDS: TAMSULOSIN HCL 0.4 MG CAP PO SCH (08:34)
[2017-07-17] MEDS: DOCUSATE SODIUM 100 MG CAP PO SCH ×2 (08:35→21:56)
[2017-07-17] MEDS: SODIUM CHLORIDE 0.9% FLUSH 10 ML FLUSH IV FLUSH SCH ×2 (08:35→21:57)
[2017-07-17] MEDS: LISINOPRIL 20 MG TAB PO SCH ×2 (08:35→21:00)
[2017-07-17] MEDS ORDERED: LORA1TAB12 PO (09:27)
[2017-07-17] MEDS ORDERED: CLON0.5T PO (09:33)
[2017-07-17] MEDS ORDERED: FLUO1TAB17 PO (09:35)
[2017-07-17] MEDS ORDERED: KLOR20TA3 PO (09:52)
[2017-07-17] MEDS ORDERED: LEVO88TA2 PO (09:52)
[2017-07-17] MEDS ORDERED: METO25TA3 PO (09:52)
[2017-07-17] MEDS ORDERED: GABA300C5 PO (09:52)
[2017-07-17] MEDS ORDERED: PIOG30 PO (09:52)
[2017-07-17] MEDS ORDERED: HYDR-3801 PO (09:52)
[2017-07-17] MEDS ORDERED: NATE120T PO (09:52)
[2017-07-17] MEDS ORDERED: PRIL20TA2 PO (09:52)
[2017-07-17] MEDS: HYDROmorphone HCL PF 2 MG/ML VIAL IV PRN (12:44)
--- NOTE | 2017-07-17 13:44 | HHI.PR ---
Subjective Remarks Pt complains of worsening pain in the right testicle today He has not had any clots from the Zhao No abdominal pain Afebrile Objective Vitals Vital Signs Date Time Temp Pulse Resp B/P (MAP) Pulse Ox O2 Delivery O2 Flow Rate FiO2 07/17/17 08:00 98.4 72 16 116/65 (82) 95 07/17/17 04:01 65 07/17/17 00:19 78 07/17/17 00:00 98.6 71 20 123/69 (87) 96 07/16/17 20:00 98.6 78 20 116/60 (78) 95 07/16/17 20:00 70 07/16/17 16:00 98.6 74 17 128/66 (86) 96 Imaging Last Impressions Scrotum Ultrasound 07/11/17 1252 Signed Impressions: Service Date/Time: Tuesday, July 11, 2017 13:18 - CONCLUSION: 1. Hyperemic nodular thickening of the right epididymal tail suggesting the presence of epididymitis. 2. Small bilateral hydroceles. 3. No evidence of testicular mass or torsion. Suman Vazquez MD Cholangiopancreatography MRI 07/08/17 0000 Signed Impressions: Service Date/Time: Saturday, July 08, 2017 16:10 - CONCLUSION: 1. The intrahepatic and extrahepatic biliary tree is normal. 2. The liver is unremarkable. Alfonso Dawson MD Chest X-Ray 07/07/17 2311 Signed Impressions: Service Date/Time: Friday, July 07, 2017 23:22 - CONCLUSION: The lungs are clear. Baron Fonseca MD Abdomen/Pelvis CT 07/07/17 0000 Signed Impressions: Service Date/Time: Saturday, July 08, 2017 01:00 - CONCLUSION: 1. Nonspecific bilateral inguinal lymph nodes. 2. Prostatic enlargement. Zhao catheter in place. Baron Fonseca MD Objective Remarks General: Awake and alert Chest: CTA Cardiac: Regular Abd: +BS, soft ND/NT : Right testicle very tender to palpation, some swelling of the right epididymis. Zhao cath in place A/P Problem List: (1) Fever ICD Codes: R50.9 - Fever, unspecified Status: Acute Plan: Fever - Patient underwent prostate biopsy by Dr. Garcia 2 days prior to admission, then presented to the ER complaining of inability to urinate. - Patient also c/o severe suprapubic abdominal discomfort as well as fever. - Zhao was placed in ER with 800ml returned. Abdominal pain resolved after Zhao place. - Pt had a noted fever of 102.7 at admission. - UA (07/07) reviewed 1000 glucose, moderate occult blood, 59 RBCs, 3 WBCs, not suggestive of UTI. - CT abdomen/pelvis (07/08/17) --> Nonspecific bilateral inguinal lymph nodes. Prostatic enlargement. Zhao catheter in place. - Blood cultures (07/07) --> 2/ bottles growing E coli. Zosyn was stopped on and pt started on Levaquin 500mg daily on 07/10 - Repeat blood cultures (07/10)--> with no growth - Influenza negative - Fever was related to E. coli bacteremia from urinary tract. fever resolved. cont rx - Also has epididymitis clinically and on u/s - Urology cleared pt for discharge on bactrim x 2 weeks - pt had difficulty with DIMAS last night and was in pain - more comfortable today since irrigation - will observe overnight and discharge to home 07/17 if pt remains stable\ Urinary retention - Zhao was placed in ER with 800ml returned. Abdominal pain resolved after Zhao place. - Labs on 07/07 with BUN 20, Creatinine 1.30, estimated GFR 66 - continue Flomax - Urology following, patient known to Dr. Garcia - Patient adamantly wanted to try voiding trail here. Patient understands risks and still wanted Zhao removed on 07/10 - Zhao removed on 07/10 and pt having difficulty voiding and with noted hematuria on 07/11 - Zhao was replaced by Urology on 07/11 and pt started on CBI. - Pt had a scrotal US (07/11) which noted hyperemic nodular thickening of the right epididymal tail suggesting presence of epididymitis, small bilateral hydroceles, no evidence of testicular mass or torsion. - Levaquin was changed to 750mg po daily on 07/11/17 by Urology - Pts pain is better controlled today - Continue CBI per Urology recommendations, when urine clears d/c with Zhao catheter to followup as an outpt in their clinic. - Urology recommending antibiotics for 2 weeks, continuing Flomax and proscar HTN (hypertension) - Continue home Nifedipine 60 mg daily and lisinopril 20 mg PO BID - Monitor BP - BP has been elevated periodically but improved with better pain control - Vasotec and clonidine as needed Hyperlipemia - Hold statin due to elevated liver enzymes Diabetes - Resume Metformin 1000mg po BID - Diabetic diet - Accu checks ACHS with SSI coverage Elevated LFTs - Statin held due to elevated liver enzymes - Labs on 07/07 with total Bilirubin 3.8, AST 101, ALT 117, alkaline phosphatase 156 - Repeat labs on 07/09 are improving, with TBili 2.7, AST 55, ALT 72, AlkPhos 148 - CT abdomen/pelvis (07/08)--> nonspecific bilateral inguinal lymph nodes. Prostatic enlargement and Zhao catheter in place - MRCP (07/08) --> The intrahepatic and extrahepatic biliary tree is normal, liver is unremarkable - Repeat labs on 07/12 improving overall with TBili 0.7, AST 26, ALT 66, AlkPhos 240 (2) Urinary retention ICD Codes: R33.9 - Retention of urine, unspecified Status: Acute Plan: (3) HTN (hypertension) ICD Codes: I10 - Essential (primary) hypertension (4) Hyperlipemia ICD Codes: E78.5 - Hyperlipidemia, unspecified (5) Diabetes ICD Codes: E11.9 - Type 2 diabetes mellitus without complications (6) Elevated LFTs ICD Codes: R79.89 - Other specified abnormal findings of blood chemistry Assessment and Plan Patient examined. Assessment and plan formulated with Ne Dallas PA-C. I agree with the above. Pt c/o continuing severe right testicular pain. On physical exam pt's right epididymis is firm, swollen, and tender to palpation. Case d/w pt's Urologist, Dr. Simon. He recommended continue current antibiotic treatment plan and starting toradol 30mg IV TID. Urology will come to hospital and reevaluate pt. Anticipate discharge to home in 1-2 days. Ne Dallas Jul 17, 2017 13:44 Alec Cotter DO Jul 17, 2017 14:10
[2017-07-17] MEDS ORDERED: KETOROLAC TROMETHAMINE 30 MG/ML (IVP) VIAL IV PUSH SCH (14:15)
--- NOTE | 2017-07-17 16:46 | HHI.PR ---
Subjective Patient symptoms today c/o pain in right testicle, some swelling. Feels constipated. Also has chills. Still having bladder spasms Objective Vital Signs Vital Signs Date Time Temp Pulse Resp B/P (MAP) Pulse Ox O2 Delivery O2 Flow Rate FiO2 07/17/17 08:00 98.4 72 16 116/65 (82) 95 07/17/17 04:01 65 07/17/17 00:19 78 07/17/17 00:00 98.6 71 20 123/69 (87) 96 07/16/17 20:00 98.6 78 20 116/60 (78) 95 07/16/17 20:00 70 Intake & Output 07/17/17 07/17/17 07:00 19:00 Intake Total 340 ml 100 ml Output Total 1300 ml Balance -960 ml 100 ml Intake Oral 240 ml IV Total 100 ml 100 ml Output Urine Total 1300 ml Objective Remarks NAD. A/O x 3 Normal breath sounds Mark is in place, urine is clear yellow Rt testicle is swollen, indurated with epididymal tenderness Medications and IVs Current Medications Medications (Trade) Dose Ordered Sig/Rod Route Start Time Stop Time Status Last Admin (NS Flush) 2 ml UNSCH PRN IV FLUSH 07/08/17 02:00 (NS Flush) 2 ml BID IV FLUSH 07/08/17 09:00 07/17/17 08:35 (Zofran Inj) 4 mg Q6H PRN IVP 07/08/17 02:00 (Narcan Inj) 0.4 mg UNSCH PRN IV PUSH 07/08/17 02:00 (Milk Of Magnesia Liq) 30 ml Q12H PRN PO 07/08/17 02:00 07/12/17 14:53 (Prinivil) 20 mg BID PO 07/08/17 09:00 07/17/17 08:35 (Procardia Xl) 60 mg DAILY PO 07/08/17 09:00 07/17/17 08:34 (Pravachol) 40 mg HS PO 07/08/17 21:00 Future Hold (Flomax) 0.4 mg DAILY PO 07/09/17 09:00 07/17/17 08:34 (NovoLOG SUPPLEMENTAL SCALE) 1 ACHS SLIDING SCALE SQ 07/09/17 12:00 07/15/17 21:01 (Colace) 100 mg BID PO 07/10/17 21:00 07/17/17 08:35 (Vasotec Inj) 1.25 mg Q4H PRN IV 07/11/17 16:30 (Catapres) 0.2 mg Q6H PRN PO 07/11/17 16:30 (Levaquin) 750 mg DAILY PO 07/11/17 16:30 07/17/17 08:34 (Dilaudid Pf Inj) 1 mg Q3H PRN IV 07/11/17 17:00 07/17/17 12:44 (Glucophage) 1,000 mg BIDPC PO 07/12/17 18:00 07/17/17 08:34 (Proscar) 5 mg DAILY PO 07/12/17 14:00 07/17/17 08:34 Cefepime HCl 2000 mg/Sodium Chloride 100 ml @ 200 mls/hr Q12H IV 07/14/17 14:00 07/17/17 12:44 (B & O Supp) 60 mg Q12HR PRN RECTAL 07/14/17 12:45 07/15/17 21:17 (Ditropan) 5 mg Q8HR PO 07/14/17 14:00 07/17/17 12:44 (Percocet 5-325 Mg) 2 tab Q6H PRN PO 07/14/17 13:00 07/17/17 08:42 (Levemir Inj) 15 units HS SQ 07/14/17 21:00 07/16/17 21:48 (Toradol Inj) 30 mg Q8HR IV PUSH 07/17/17 14:15 07/22/17 14:14 07/17/17 15:10 Assessment and Plan Assessment and Plan -continue Cefepime -toradol 30 mg IV q 6 -Ice, elevation to scrotum -Miralax for constipation -continue mark -possible d/c tomorrow. Eric Garcia MD Jul 17, 2017 16:46
[2017-07-17] MEDS ORDERED: POLYETHYLENE GLYCOL 17 GM PKG PO ONE (17:15)
[2017-07-17] MEDS: KETOROLAC TROMETHAMINE 30 MG/ML (IVP) VIAL IV PUSH SCH (18:00)
[2017-07-17] MEDS: INSULIN DETEMIR 100 UNITS/ML VIAL SQ SCH (21:00)
[2017-07-18] VITALS (7 sets, daily range): BP systolic 102–140; BP diastolic 57–65; PULSE 65–75; RESP 17–20; TEMP 96.4–99; O2SAT 94–98
[2017-07-18 00:40] LABS: AMORPHOUS SEDIMENT, URINE RARE; BACTERIA, URINE FEW /hpf; BILIRUBIN, URINE NEG (NEG); BLOOD, URINE LARGE (NEG); GLUCOSE,URINE NEG (NEG); HYALINE CAST, URINE 12 /lpf (RARE); KETONE, URINE 10 mg/dL (NEG); MUCUS URINE MOD /lpf (OCC); NITRITE,URINE NEG (NEG); PH, URINE 5.5 (5.0-8.5); SQUAMOUS EPITHELIAL CELL URINE <1 /hpf (0-5); URINE COLOR LIGHT-RED (YELLW/STRAW); URINE LEUKOCYTE ESTERASE LARGE (NEG)
[2017-07-18] MEDS: CEFEPIME INJ 2,000 MG in SODIUM CHLORIDE 0.9% INJ 100 ML IV SCH ×2 (02:44→14:32)
[2017-07-18] MEDS: KETOROLAC TROMETHAMINE 30 MG/ML (IVP) VIAL IV PUSH SCH ×3 (02:45→12:00)
[2017-07-18] MEDS: SODIUM CHLORIDE 0.9% FLUSH 10 ML FLUSH IV FLUSH PRN ×3 (02:45→05:37)
[2017-07-18] MEDS: HYDROmorphone HCL PF 2 MG/ML VIAL IV PRN (04:10)
[2017-07-18] MEDS: OXYBUTYNIN CHLORIDE 5 MG TAB PO SCH ×3 (05:36→22:19)
[2017-07-18 07:49] LABS: AUTOMATED NEUTROPHIL # 5.9 TH/MM3 (1.8-7.7); BASOPHIL % 0.2 % (0.0-2.0); EOSINOPHIL # 0.5 TH/MM3 (0-0.4); EOSINOPHIL % 5.4 % (0.0-4.0); HEMATOCRIT 35.7 % (39.0-51.0); HEMOGLOBIN 11.7 GM/DL (13.0-17.0); LYMPHOCYTE # 1.5 TH/MM3 (1.0-4.8); MEAN CELL VOLUME 87.7 FL (80.0-100.0); MEAN CORPUSCULAR HEMOGLOBIN 28.7 PG (27.0-34.0); MEAN CORPUSCULAR HGB CONC 32.7 % (32.0-36.0); MEAN PLATELET VOLUME 7.3 FL (7.0-11.0); MONO % 9.2 % (0.0-8.0); MONOCYTE # 0.8 TH/MM3 (0-0.9); NEUT % 68.2 % (16.0-70.0); PLATELET COUNT 441 TH/MM3 (150-450); RED BLOOD COUNT 4.07 MIL/MM3 (4.50-5.90); RED CELL DISTRIBUTION WIDTH 13.9 % (11.6-17.2); WHITE BLOOD COUNT 8.7 TH/MM3 (4.0-11.0)
[2017-07-18] MEDS: INSULIN ASPART SUPPLEMENTAL SCALE SQ SCH ×4 (08:00→22:21)
[2017-07-18 08:10] LABS: BICARBONATE 24.8 MEQ/L (21.0-32.0); CALCIUM 8.9 MG/DL (8.5-10.1); CREATININE 1.87 MG/DL (0.60-1.30); MAGNESIUM 2.1 MG/DL (1.5-2.5)
[2017-07-18] MEDS: SODIUM CHLORIDE 0.9% FLUSH 10 ML FLUSH IV FLUSH SCH ×2 (09:00→22:21)
[2017-07-18] MEDS: DOCUSATE SODIUM 100 MG CAP PO SCH ×2 (09:00→22:19)
[2017-07-18] MEDS: metFORMIN HCL 500 MG TAB PO SCH (09:36)
[2017-07-18] MEDS: TAMSULOSIN HCL 0.4 MG CAP PO SCH (09:36)
[2017-07-18] MEDS: NIFEdipine 60 MG SUSTAINED RELEASE TAB PO SCH (09:36)
[2017-07-18] MEDS: LEVOFLOXACIN 750 MG TAB PO SCH (09:36)
[2017-07-18] MEDS: FINASTERIDE 5 MG TAB PO SCH (09:37)
[2017-07-18] MEDS: LISINOPRIL 20 MG TAB PO SCH (09:37)
[2017-07-18] MEDS ORDERED: TAMS5CAP PO (15:09)
[2017-07-18] MEDS ORDERED: OXYB5TAB8 PO (15:09)
[2017-07-18] MEDS ORDERED: DOCU1CAP39 PO (15:09)
[2017-07-18] MEDS ORDERED: FINA5TAB2 PO (15:09)
[2017-07-18] MEDS ORDERED: BACT800T5 PO (15:13)
[2017-07-18] MEDS ORDERED: LEVEMIR SQ (15:22)
[2017-07-18] MEDS ORDERED: OXYC1TAB63 PO (15:24)
--- NOTE | 2017-07-18 15:25 | HHI.FF ---
Face to Face Verification Diagnosis: (1) Epididymitis (2) Urinary retention (3) Sepsis (4) Diabetes Physical Therapy Order: Evaluate and Treat Home Health Nursing Order: Medical education Signs/symptoms of disease process Diabetic education Medication education-adverse effect Nursing assessment with vital signs Zhao catheter maintenance Instructions: newly on insulin. BMP in 1 week with results to PCP I have seen patient Susan Guzman on 07/18/17. My clinical findings support the need for the requested home health care services because: Deconditioned w/ increased weakness Med compliance is questionable Limited ability to care for self I certify that my clinical findings support that this patient is homebound because: Unsteady gait/balance Griselda Fernandez Jul 18, 2017 15:25 Alec Cotter DO Jul 19, 2017 08:52
[2017-07-18] MEDS ORDERED: BLOOD GLUCOSE M1 KIT (15:29)
[2017-07-18] MEDS ORDERED: BLOOD GLUCOSE T1 TES (15:29)
[2017-07-18] MEDS ORDERED: INSU1MIS36 SQ (15:29)
--- NOTE | 2017-07-18 16:11 | HHI.PR ---
Subjective Remarks no new complaints Objective Vitals Vital Signs Date Time Temp Pulse Resp B/P (MAP) Pulse Ox O2 Delivery O2 Flow Rate FiO2 07/18/17 12:00 97.0 75 17 123/65 (84) 97 07/18/17 08:00 97.9 65 17 102/58 (73) 94 07/18/17 03:46 75 07/18/17 00:11 74 07/18/17 00:00 98.0 72 20 115/62 (79) 96 07/17/17 20:00 99.1 71 20 111/57 (75) 95 07/17/17 19:59 72 Result Diagram: 07/18/17 0720 07/18/17 0720 Other Results Laboratory Tests Test 07/17/17 23:55 07/18/17 07:20 Urine Color LIGHT-RED Urine Turbidity HAZY Urine pH 5.5 Urine Specific [place] 1.027 Urine Protein 100 mg/dL Urine Glucose (UA) NEG mg/dL Urine Ketones 10 mg/dL Urine Occult Blood LARGE Urine Nitrite NEG Urine Bilirubin NEG Urine Urobilinogen LESS THAN 2.0 MG/DL Urine Leukocyte Esterase LARGE Urine RBC 98 /hpf Urine WBC 53 /hpf Urine Squamous Epithelial Cells <1 /hpf Urine Amorphous Sediment RARE Urine Bacteria FEW /hpf Urine Hyaline Casts 12 /lpf Urine Mucus MOD /lpf Microscopic Urinalysis Comment CATH-CULTURE IND White Blood Count 8.7 TH/MM3 Red Blood Count 4.07 MIL/MM3 Hemoglobin 11.7 GM/DL Hematocrit 35.7 % Mean Corpuscular Volume 87.7 FL Mean Corpuscular Hemoglobin 28.7 PG Mean Corpuscular Hemoglobin Concent 32.7 % Red Cell Distribution Width 13.9 % Platelet Count 441 TH/MM3 Mean Platelet Volume 7.3 FL Neutrophils (%) (Auto) 68.2 % Lymphocytes (%) (Auto) 17.0 % Monocytes (%) (Auto) 9.2 % Eosinophils (%) (Auto) 5.4 % Basophils (%) (Auto) 0.2 % Neutrophils # (Auto) 5.9 TH/MM3 Lymphocytes # (Auto) 1.5 TH/MM3 Monocytes # (Auto) 0.8 TH/MM3 Eosinophils # (Auto) 0.5 TH/MM3 Basophils # (Auto) 0.0 TH/MM3 CBC Comment DIFF FINAL Differential Comment Blood Urea Nitrogen 47 MG/DL Creatinine 1.87 MG/DL Random Glucose 114 MG/DL Calcium Level 8.9 MG/DL Magnesium Level 2.1 MG/DL Sodium Level 136 MEQ/L Potassium Level 5.0 MEQ/L Chloride Level 102 MEQ/L Carbon Dioxide Level 24.8 MEQ/L Anion Gap 9 MEQ/L Estimat Glomerular Filtration Rate 43 ML/MIN Imaging Last Impressions Scrotum Ultrasound 07/11/17 1252 Signed Impressions: Service Date/Time: Tuesday, July 11, 2017 13:18 - CONCLUSION: 1. Hyperemic nodular thickening of the right epididymal tail suggesting the presence of epididymitis. 2. Small bilateral hydroceles. 3. No evidence of testicular mass or torsion. Suman Vazquez MD Cholangiopancreatography MRI 07/08/17 0000 Signed Impressions: Service Date/Time: Saturday, July 08, 2017 16:10 - CONCLUSION: 1. The intrahepatic and extrahepatic biliary tree is normal. 2. The liver is unremarkable. Alfonso Dawson MD Chest X-Ray 07/07/17 2311 Signed Impressions: Service Date/Time: Friday, July 07, 2017 23:22 - CONCLUSION: The lungs are clear. Baron Fonseca MD Abdomen/Pelvis CT 07/07/17 0000 Signed Impressions: Service Date/Time: Saturday, July 08, 2017 01:00 - CONCLUSION: 1. Nonspecific bilateral inguinal lymph nodes. 2. Prostatic enlargement. Zhao catheter in place. Baron Fonseca MD Objective Remarks General: Awake and alert Chest: CTA Cardiac: Regular Abd: +BS, soft ND/NT : Right testicle very tender to palpation, some swelling of the right epididymis. Zhao cath in place A/P Problem List: (1) Fever ICD Codes: R50.9 - Fever, unspecified Status: Acute Plan: Fever - Patient underwent prostate biopsy by Dr. Garcia 2 days prior to admission, then presented to the ER complaining of inability to urinate. - Patient also c/o severe suprapubic abdominal discomfort as well as fever. - Zhao was placed in ER with 800ml returned. Abdominal pain resolved after Zhao place. - Pt had a noted fever of 102.7 at admission. - UA (07/07) reviewed 1000 glucose, moderate occult blood, 59 RBCs, 3 WBCs, not suggestive of UTI. - CT abdomen/pelvis (07/08/17) --> Nonspecific bilateral inguinal lymph nodes. Prostatic enlargement. Zhao catheter in place. - Blood cultures (07/07) --> 2/2 bottles growing E coli. Zosyn was stopped on and pt started on Levaquin 500mg daily on 07/10 - Repeat blood cultures (07/10)--> with no growth - Influenza negative - Fever was related to E. coli bacteremia from urinary tract. fever resolved. cont rx - Also has epididymitis clinically and on u/s - Urology cleared pt for discharge on bactrim x 2 weeks - pt had difficulty with DIMAS last night and was in pain - more comfortable today since irrigation Urinary retention - Zhao was placed in ER with 800ml returned. Abdominal pain resolved after Zhao place. - Labs on 07/07 with BUN 20, Creatinine 1.30, estimated GFR 66 - continue Flomax - Urology following, patient known to Dr. Garcia - Patient adamantly wanted to try voiding trail here. Patient understands risks and still wanted Zhao removed on 07/10 - Zhao removed on 07/10 and pt having difficulty voiding and with noted hematuria on 07/11 - Zhao was replaced by Urology on 07/11 and pt started on CBI. - Pt had a scrotal US (07/11) which noted hyperemic nodular thickening of the right epididymal tail suggesting presence of epididymitis, small bilateral hydroceles, no evidence of testicular mass or torsion. - Levaquin was changed to 750mg po daily on 07/11/17 by Urology - Pts pain is better controlled today - Continue CBI per Urology recommendations, when urine clears d/c with Zhao catheter to followup as an outpt in their clinic. - Urology recommending Bactrim for 2 weeks, continuing Flomax and proscar HTN (hypertension) - Continue home Nifedipine 60 mg daily and lisinopril 20 mg PO BID- will DC lisinopril due to renal function - Monitor BP - BP has been elevated periodically but improved with better pain control - Vasotec and clonidine as needed Hyperlipemia - Hold statin due to elevated liver enzymes Diabetes - hold Metformin 1000mg po BID- due to renal function - Diabetic diet - levemir 15 units SQ QHS - Accu checks ACHS with SSI coverage Elevated LFTs - Statin held due to elevated liver enzymes - Labs on 07/07 with total Bilirubin 3.8, AST 101, ALT 117, alkaline phosphatase 156 - Repeat labs on 07/09 are improving, with TBili 2.7, AST 55, ALT 72, AlkPhos 148 - CT abdomen/pelvis (07/08)--> nonspecific bilateral inguinal lymph nodes. Prostatic enlargement and Zhao catheter in place - MRCP (07/08) --> The intrahepatic and extrahepatic biliary tree is normal, liver is unremarkable - Repeat labs on 07/12 improving overall with TBili 0.7, AST 26, ALT 66, AlkPhos 240 Patient status improved, no new complaints. Plan to DC tomorrow with [facility] (2) Urinary retention ICD Codes: R33.9 - Retention of urine, unspecified Status: Acute Plan: (3) HTN (hypertension) ICD Codes: I10 - Essential (primary) hypertension (4) Hyperlipemia ICD Codes: E78.5 - Hyperlipidemia, unspecified (5) Diabetes ICD Codes: E11.9 - Type 2 diabetes mellitus without complications (6) Elevated LFTs ICD Codes: R79.89 - Other specified abnormal findings of blood chemistry Assessment and Plan Patient examined. Assessment and plan formulated with Griselda Fernandez PA-C. I agree with the above. Griselda Fernandez Jul 18, 2017 16:11 Alec Cotter DO Jul 22, 2017 00:44
--- NOTE | 2017-07-18 16:16 | HHI.DS ---
Discharge Summary Admission Date Jul 08, 2017 at 01:54 Discharge Date: Jul 19, 2017 Admitting Diagnosis Sepsis, urinary retention, rule out bacteremia (1) Fever Diagnosis: Principal ICD Codes: R50.9 - Fever, unspecified Status: Acute (2) Urinary retention Diagnosis: Principal ICD Codes: R33.9 - Retention of urine, unspecified Status: Acute (3) HTN (hypertension) Diagnosis: Secondary ICD Codes: I10 - Essential (primary) hypertension (4) Hyperlipemia Diagnosis: Secondary ICD Codes: E78.5 - Hyperlipidemia, unspecified (5) Diabetes Diagnosis: Secondary ICD Codes: E11.9 - Type 2 diabetes mellitus without complications (6) Elevated LFTs Diagnosis: Secondary ICD Codes: R79.89 - Other specified abnormal findings of blood chemistry Consultants Dr. Garcia, Urology Procedures none Brief History This is a 72-year-old male patient with history of high cholesterol, diabetes and enlarged prostate. Patient underwent prostate biopsy by Dr. Garcia 3 days ago then presented to the ER with complains of inability to urinate x 2 days. Patient also c/o severe suprapubic abdominal discomfort as well as fever. Pain is severe, constant, worse with movement and palpation, described as pressure. Patient presented to the ER with a temperature of 102.7. Denies N/V, cough, congestion, SOB or chest pain. Mark was placed in ER with 800ml returned. Abdominal pain resolved after mark place. WBC 13.[address] abdomen/pelvic conclusion: nonspecific bilateral inguinal lymph nodes. Prostatic enlargement and mark catheter in place CBC/BMP: 07/18/17 0720 07/18/17 0720 Significant Findings Laboratory Tests Test 07/17/17 23:55 07/18/17 07:20 Urine Color LIGHT-RED (YELLW/STRAW) Urine Turbidity HAZY (CLEAR) Urine Protein 100 mg/dL (NEG-TRACE) Urine Ketones 10 mg/dL (NEG) Urine Occult Blood LARGE (NEG) Urine Leukocyte Esterase LARGE (NEG) Urine RBC 98 /hpf (0-3) Urine WBC 53 /hpf (0-5) Urine Bacteria FEW /hpf (NONE) Urine Mucus MOD /lpf (OCC) Red Blood Count 4.07 MIL/MM3 (4.50-5.90) Hemoglobin 11.7 GM/DL (13.0-17.0) Hematocrit 35.7 % (39.0-51.0) Monocytes (%) (Auto) 9.2 % (0.0-8.0) Eosinophils (%) (Auto) 5.4 % (0.0-4.0) Eosinophils # (Auto) 0.5 TH/MM3 (0-0.4) Blood Urea Nitrogen 47 MG/DL (7-18) Creatinine 1.87 MG/DL (0.60-1.30) Random Glucose 114 MG/DL (74-106) Estimat Glomerular Filtration Rate 43 ML/MIN (>89) Imaging Last Impressions Scrotum Ultrasound 07/11/17 1252 Signed Impressions: Service Date/Time: Tuesday, July 11, 2017 13:18 - CONCLUSION: 1. Hyperemic nodular thickening of the right epididymal tail suggesting the presence of epididymitis. 2. Small bilateral hydroceles. 3. No evidence of testicular mass or torsion. Suman Vazquez MD Cholangiopancreatography MRI 07/08/17 0000 Signed Impressions: Service Date/Time: Saturday, July 08, 2017 16:10 - CONCLUSION: 1. The intrahepatic and extrahepatic biliary tree is normal. 2. The liver is unremarkable. Alfonso Dawson MD Chest X-Ray 07/07/17 2311 Signed Impressions: Service Date/Time: Friday, July 07, 2017 23:22 - CONCLUSION: The lungs are clear. Baron Fonseca MD Abdomen/Pelvis CT 07/07/17 0000 Signed Impressions: Service Date/Time: Saturday, July 08, 2017 01:00 - CONCLUSION: 1. Nonspecific bilateral inguinal lymph nodes. 2. Prostatic enlargement. Mark catheter in place. Baron Fonseca MD PE at Discharge General: Awake and alert Chest: CTA Cardiac: Regular Abd: +BS, soft ND/NT : Right testicle very tender to palpation, some swelling of the right epididymis. Mark cath in place Hospital Course Fever - Patient underwent prostate biopsy by Dr. Garcia 2 days prior to admission, then presented to the ER complaining of inability to urinate. - Patient also c/o severe suprapubic abdominal discomfort as well as fever. - Mark was placed in ER with 800ml returned. Abdominal pain resolved after Mark place. - Pt had a noted fever of 102.7 at admission. - UA (3/3) reviewed 1000 glucose, moderate occult blood, 59 RBCs, 3 WBCs, not suggestive of UTI. - CT abdomen/pelvis (07/08/17) --> Nonspecific bilateral inguinal lymph nodes. Prostatic enlargement. Mark catheter in place. - Blood cultures (07/07) --> 2/2 bottles growing E coli. Zosyn was stopped on and pt started on Levaquin 500mg daily on 07/10 - Repeat blood cultures (07/10)--> with no growth - Influenza negative - Fever was related to E. coli bacteremia from urinary tract. fever resolved. cont rx - Also has epididymitis clinically and on u/s - Urology cleared pt for discharge on bactrim x 2 weeks - pt had difficulty with DIMAS last night and was in pain - more comfortable today since irrigation Urinary retention - Mark was placed in ER with 800ml returned. Abdominal pain resolved after Mark place. - Labs on 07/07 with BUN 20, Creatinine 1.30, estimated GFR 66 - continue Flomax - Urology following, patient known to Dr. Garcia - Patient adamantly wanted to try voiding trail here. Patient understands risks and still wanted Mark removed on 07/10 - Mark removed on 07/10 and pt having difficulty voiding and with noted hematuria on 07/11 - Mark was replaced by Urology on 07/11 and pt started on CBI. - Pt had a scrotal US (07/11) which noted hyperemic nodular thickening of the right epididymal tail suggesting presence of epididymitis, small bilateral hydroceles, no evidence of testicular mass or torsion. - Levaquin was changed to 750mg po daily on 07/11/17 by Urology - Pts pain is better controlled today - Continue CBI per Urology recommendations, when urine clears d/c with Mark catheter to followup as an outpt in their clinic. - Urology recommending Bactrim for 2 weeks, continuing Flomax and proscar HTN (hypertension) - Continue home Nifedipine 60 mg daily and lisinopril 20 mg PO BID- will DC lisinopril due to renal function - Monitor BP - BP has been elevated periodically but improved with better pain control - Vasotec and clonidine as needed Hyperlipemia - Hold statin due to elevated liver enzymes Diabetes - hold Metformin 1000mg po BID- due to renal function - Diabetic diet - levemir 15 units SQ QHS - Accu checks ACHS with SSI coverage Elevated LFTs - Statin held due to elevated liver enzymes - Labs on 07/07 with total Bilirubin 3.8, AST 101, ALT 117, alkaline phosphatase 156 - Repeat labs on 07/09 are improving, with TBili 2.7, AST 55, ALT 72, AlkPhos 148 - CT abdomen/pelvis (07/08)--> nonspecific bilateral inguinal lymph nodes. Prostatic enlargement and Mark catheter in place - MRCP (07/08) --> The intrahepatic and extrahepatic biliary tree is normal, liver is unremarkable - Repeat labs on 07/12 improving overall with TBili 0.7, AST 26, ALT 66, AlkPhos 240 JT - BUN 47, creatine 1.87, estimated GFR 43 - repeat BMP in 1 week with results to PCP - stop Metformin, Lisinopril and Toradol due to renal function Pt Condition on Discharge: Stable Discharge Disposition: Disch w/ Home Health Serv Discharge Instructions DIET: Follow Instructions for: Diabetic Diet Activities you can perform: Regular-No Restrictions Follow up Referrals: PCP Follow-up - [address] León Urology - 1 Week with Eric Garcia MD New Medications: Blood Glucose Monitoring W/Device (Blood Glucose Monitoring W/Device) 1 Kit Kit KIT .XX DIRECTED for Blood Sugar Management, #1 0 Refills Please check glucose twice a day and record take record to PCP Blood Glucose Test Strips (Blood Glucose Test Strips) Strips Strip EA .XX DIRECTED for Blood Sugar Management, #60 0 Refills Please check blood glucose twice a day Insulin Detemir Inj (Levemir Inj) 1,000 unit/ 10 ML Vial 5 UNITS SQ HS for Blood Sugar Management for 15 Days, VIAL 0 Refills Do not mix with any other Insulin. Insulin Syringe/Needle U-100 (Advocate Insulin Syringe/ 30G X 5/16" 1 ml) 30 Gauge X 5/16" Mis EACH SQ DAILY, #30 0 Refills Sulfamethoxazole-Trimethoprim (Bactrim DS) 800-160 Mg Tab 1 TAB PO BID for Infection, #14 TAB 0 Refills Docusate Sodium (Dok) 100 Mg Cap 100 MG PO BID for Constipation, #60 CAP 0 Refills Finasteride (Finasteride) 5 Mg Tab 5 MG PO DAILY for enlarged prostate, #30 TAB 0 Refills Do not crush. Oxybutynin (Ditropan) 5 Mg Tab 5 MG PO Q8HR for Bladder Spasm for 14 Days, TAB 0 Refills Oxycodone HCl/Acetaminophen (Oxycodone-Acetaminophen 5-325) 5 Mg-325 Mg Tablet 1 TAB PO Q6H PRN for pain, #15 TAB 0 Refills Tamsulosin (Flomax) 0.4 Mg Cap 0.4 MG PO DAILY for enlarged prostate, #30 CAP 0 Refills Continued Medications: Nifedipine ER 24 HR (Nifedipine ER 24 HR) 60 Mg Tab 60 MG PO DAILY for blood pressure, #30 TAB 0 Refills Simvastatin (Simvastatin) 20 Mg Tab 20 MG PO HS for Cholesterol Management, #30 TAB 0 Refills Discontinued Medications: Aspirin (Aspirin Children's) 81 Mg Chew 81 MG PO DAILY, TAB 0 Refills Lisinopril (Lisinopril) 20 Mg Tab 20 MG PO BID for htn, #60 TAB 0 Refills Metformin (Metformin) 1,000 Mg Tab 1000 MG PO BIDPC for Blood Sugar Management, #60 TAB 0 Refills Additional Information Patient examined. Assessment and plan formulated with Griselda Fernandez PA-C. I agree with the above. Griselda Fernandez Jul 18, 2017 16:16 Alec Cotter DO Jul 22, 2017 00:45
[2017-07-18] MEDS: SULFAMETHOXAZOLE-TRIMETHOPRIM DS 800-160 MG TAB PO SCH (22:19)
[2017-07-18] MEDS: INSULIN DETEMIR 100 UNITS/ML VIAL SQ SCH (22:21)
[2017-07-19] VITALS: BP 117/56; PULSE 68; PULSE 70; RESP 18; TEMP 98.6; O2SAT 93
[2017-07-19 04:00] VITALS: BP 112/61; PULSE 62; PULSE 72; RESP 18; TEMP 97.7; O2SAT 93
[2017-07-19] MEDS: oxyCODONE/ACETAMINOPHEN 5 MG/325 MG TAB PO PRN (04:14)
[2017-07-19] MEDS: OXYBUTYNIN CHLORIDE 5 MG TAB PO SCH (06:24)
[2017-07-19 08:00] VITALS: BP 128/63; PULSE 61; RESP 19; TEMP 98.3; O2SAT 98
[2017-07-19] MEDS: INSULIN ASPART SUPPLEMENTAL SCALE SQ SCH ×2 (08:00→12:00)
[2017-07-19] MEDS: SODIUM CHLORIDE 0.9% FLUSH 10 ML FLUSH IV FLUSH SCH (08:37)
[2017-07-19] MEDS: DOCUSATE SODIUM 100 MG CAP PO SCH (08:38)
[2017-07-19] MEDS: TAMSULOSIN HCL 0.4 MG CAP PO SCH (08:39)
[2017-07-19] MEDS: NIFEdipine 60 MG SUSTAINED RELEASE TAB PO SCH (08:40)
[2017-07-19] MEDS: SULFAMETHOXAZOLE-TRIMETHOPRIM DS 800-160 MG TAB PO SCH (08:40)
[2017-07-19] MEDS: FINASTERIDE 5 MG TAB PO SCH (08:40)
== END 2017-07-19 13:21 | disposition home health service (06) | DRG 862 ==
LOC: NEPC 22:43 → NEDA 07-08 01:54 → NEPHCDU 07-08 02:58 → N07A 07-08 15:36
PROVIDERS: ADMIT Hospitalist; ATTEND Hospitalist
DX: T81.4XXA Infection following a procedure, initial encounter (principal); A41.51 Sepsis due to Escherichia coli [E. coli]; N17.9 Acute kidney failure, unspecified; N39.0 Urinary tract infection, site not specified; E11.9 Type 2 diabetes mellitus without complications; B96.20 Unspecified Escherichia coli [E. coli] as the cause of diseases classified elsewhere; I10 Essential (primary) hypertension; Y84.8 Other medical procedures as the cause of abnormal reaction of the patient, or of later complication, without mention of misadventure at the time of the procedure; E78.5 Hyperlipidemia, unspecified; N40.1 Benign prostatic hyperplasia with lower urinary tract symptoms; R33.8 Other retention of urine; K59.00 Constipation, unspecified; N32.0 Bladder-neck obstruction; N43.3 Hydrocele, unspecified; R31.9 Hematuria, unspecified; N45.3 Epididymo-orchitis; Z79.84 Long term (current) use of oral hypoglycemic drugs
CPT/HCPCS: 51702; 71045; 74177; 74181; 76377; 76870; 80048; 80053; 81001; 82948; 83605; 83735; 85025; 85610; 85730; 87040; 87077; 87086; 87186; 87205; 87804; 93005; 93975; 96361; 96365; J0692; J0696; J1170; J1815; J1885; J2270; J2543; J7030; Q9967

== ENCOUNTER 2017-08-04 19:34 | Emergency (ER) | payer MEDICARE ==
[~2017-08-04] VITALS: Ht 172.7 cm; Wt 80.0 kg
[~2017-08-04 19:34] MED LIST changes: -ASPI81CH7 PO; +BACT800T5 PO; +BLOOD GLUCOSE M1 KIT; +BLOOD GLUCOSE T1 TES; +DOCU1CAP39 PO; +FINA5TAB2 PO; +INSU1MIS36 SQ; +LEVEMIR SQ; -LISI-515 PO; -METF1000 PO; +OXYB5TAB8 PO; +OXYC1TAB63 PO; +TAMS5CAP PO
[2017-08-04 19:39] VITALS: BP 158/76; PULSE 86; RESP 18; TEMP 99; O2SAT 98
--- NOTE | 2017-08-04 23:51 | PD ---
HPI Chief Complaint: Complaint Time Seen by Provider: 23:00 Travel History International Travel<30 days: No Contact w/Intl Traveler<30days: No Traveled to known affect area: No History of Present Illness HPI This 72-year-old man presents emerged from complaining of feeling like his catheter is clogged. Some lower abdominal discomfort. No urine output for the past several hours. Otherwise feeling well. No other complaints. History Past Medical History Narrative Medical Bladder outlet obstruction Hyperlipidemia Diabetes Tetanus Vaccination: Unknown Influenza Vaccination: No Social History Alcohol Use: No Tobacco Use: No Allergies-Medications (Allergen,Severity, Reaction): Coded Allergies: acetaminophen (Verified Allergy, Unknown, 08/04/17) "my dr said not to take it because of my fatty liver" Reported Meds & Prescriptions Reported Meds & Active Scripts Active Advocate Insulin Syringe/ 30G X 5/16" 1 ml (Insulin Syringe/Needle U-100) 30 Gauge X 5/16" Mis Each SQ DAILY Blood Glucose Test Strips Strips Strip Ea .XX DIRECTED Please check blood glucose twice a day Blood Glucose Monitoring W/Device (Device) 1 Kit Kit Kit .XX DIRECTED Please check glucose twice a day and record take record to PCP Oxycodone-Acetaminophen 5-325 (Oxycodone HCl/Acetaminophen) 5 Mg-325 Mg Tablet 1 Tab PO Q6H PRN Levemir Inj (Insulin Detemir) 1,000 unit/ 10 ML Vial 5 Units SQ HS 15 Days Do not mix with any other Insulin. Bactrim DS (Sulfamethoxazole-Trimethoprim) 800-160 Mg Tab 1 Tab PO BID Finasteride 5 Mg Tab 5 Mg PO DAILY Do not crush. Ditropan (Oxybutynin Chloride) 5 Mg Tab 5 Mg PO Q8HR 14 Days Dok (Docusate Sodium) 100 Mg Cap 100 Mg PO BID Flomax (Tamsulosin HCl) 0.4 Mg Cap 0.4 Mg PO DAILY Nifedipine ER 24 HR (Nifedipine) 60 Mg Tab 60 Mg PO DAILY Reported Simvastatin 20 Mg Tab 20 Mg PO HS Review of Systems Except as stated in HPI: all other systems reviewed are Neg Physical Exam Narrative GENERAL: 72-year-old man, no acute distress. SKIN: Warm and dry. CARDIOVASCULAR: Warm and well perfused. RESPIRATORY: Normal rate and effort. Abdomen: Some lower abdominal fullness. No tenderness. : Normal external male genitalia. Zhao catheter in place. NEUROLOGICAL: Awake and alert. No gross deficits. Data Data Last Documented VS Vital Signs Date Time Temp Pulse Resp B/P (MAP) Pulse Ox O2 Delivery O2 Flow Rate FiO2 08/04/17 19:39 99.0 86 18 158/76 (103) 98 Orders Orders Ed Poc Ultrasound (08/04/17 ) MDM Medical Decision Making Medical Screen Exam Complete: Yes Emergency Medical Condition: Yes Differential Diagnosis Obstructed Zhao catheter, poor urine output, other Narrative Course 72-year-old man, obstructed Zhao catheter, 250 ML's of urine in the bladder. Irrigated by nursing with good response. Procedures Procedure Narrative [id number] ultrasound: Focused transabdominal ultrasound performed by me to evaluate for bladder volume. 250 mL's were seen in the bladder. Zhao catheter was visualized also. Diagnosis Primary Impression: Obstructed Zhao catheter Additional Instructions: Follow-up with your urologist on Sunday. Return to the ER for any complications. Med/Other Pt SpecificInfo: No Change to Meds Disposition: 01 DISCHARGE HOME Condition: Stable Brandyn Burnett MD Aug 04, 2017 23:51
== END 2017-08-05 00:16 | disposition home or self-care (01) ==
LOC: NEPE 19:34
DX: T83.091A Other mechanical complication of indwelling urethral catheter, initial encounter (principal); R10.30 Lower abdominal pain, unspecified; R39.198 Other difficulties with micturition; N32.0 Bladder-neck obstruction; E78.5 Hyperlipidemia, unspecified; E11.9 Type 2 diabetes mellitus without complications
CPT/HCPCS: 51700